=== PATIENT | female | born 1945 | race Caucasian/White ===

== ENCOUNTER 2018-03-15 10:25 | Observation (INO) ==
[2018-03-15] MEDS ORDERED: Metoprolol Tartrate 25 MG Tablet PO SCH ×2 (10:45)
[2018-03-15] MEDS ORDERED: Chlorhexidine Gluconate 2% 1 Pack (2 Cloths) TOPICAL SCH ×2 (10:45)
[2018-03-15] MEDS ORDERED: Sodium Chlor 0.9% Inj 500 ML IV.SIG SCH ×2 (11:00)
[2018-03-15] MEDS ORDERED: Lidocaine PF 1% Inj 5 ML Syringe INFILTRATN ONE (12:00)
[2018-03-15] MEDS ORDERED: Succinylcholine Inj 100 MG/5 ML Syringe IV.PUSH ONE (12:00)
[2018-03-15] MEDS ORDERED: Sincalide Inj 5 MCG Vial ONE (14:53)
[2018-03-15] MEDS ORDERED: Sincalide Inj 5 MCG Vial IV.PUSH ONE (15:01)
[2018-03-15] MEDS ORDERED: Labetalol HCl Inj 100 MG/20 ML Vial ONE (15:34)
--- NOTE | 2018-03-15 16:10 | P.PCN ---
Date of procedure: 03/15/18 Pre-op diagnosis: Worsening liver function tests abnormal imaging of the biliary tree Procedure: PROCEDURE PERFORMED ERCP with needle knife sphincterotomy INDICATION FOR PROCEDURE Elevated liver function tests including bilirubin with abnormal findings on imaging of the biliary tree PROCEDURE: The procedure, risks and benefits were discussed with Patient/POA and informed consent was obtained. Anesthesia sedated Patient with Diprivan. Patient was placed in the left lateral decubitus position. ERCP: Patient was placed in a prone position. The Pentax videoscope was introduced through the oropharynx and advanced to the second portion of the duodenum where the ampula was identified. FINDINGS: The ampulla appeared to be unremarkable I was unable to obtain cannulation of either the bile duct or the pancreatic duct and so a needle knife sphincterotomy was performed after which I was able to advance the wire into the pancreatic duct this was not injected but after multiple attempts I was unable to find the opening for the bile duct Kinevac was used to see if we can identify the biliary orifice without any response and so the procedure was then terminated ESTIMATED BLOOD LOSS: None SPECIMENS REMOVED: None COMPLICATIONS: None IMPRESSION: Biliary obstruction etiology unclear PLAN: Admit for observation IR to proceed with PTC Monitor labs Follow-up with GI post discharge Obtain tumor markers Anesthesia: JEDA Surgeon: Grey Pringle Condition: stable Disposition: observation
[2018-03-15] MEDS ORDERED: fentaNYL Citrate Inj 100 MCG/2 ML Ampul ONE (16:53)
[2018-03-15 16:57] LABS: Alanine Aminotransferase 357 U/L (10-53); Albumin 3.6 g/dL (3.4-5.0); Anion Gap 9 meq/L (5-15); Aspartate Aminotransferase 233 U/L (15-37); Blood Urea Nitrogen 19 mg/dL (7-18); Calcium 8.9 mg/dL (8.5-10.1); Carbon Dioxide 23.3 meq/L (21.0-32.0); Chloride 101 meq/L (98-107); Glomerular Filtration Rate 75 mL/min (>89); Glucose,Random 93 mg/dL (74-106); Potassium 3.6 meq/L (3.5-5.1); Sodium 133 meq/L (136-145)
[2018-03-15 17:00] LABS: Alkaline Phosphatase 705 U/L (45-117); Total Protein 7.1 g/dL (6.4-8.2)
--- NOTE | 2018-03-15 20:00 | ECG ---
Date Performed: 03/15/2018 Time Performed: 10:57:42 PTAGE: 72 years EKG: Sinus rhythm RIGHT BUNDLE BRANCH BLOCK ABNORMAL ECG PREVIOUS TRACING : 03/26/2016 07.48 Since the previous tracing, no significant change noted DOCTOR: Carlton Sosa Interpretating Date/Time 03/15/2018 19:57:22
[2018-03-15 22:10] LABS: Hematocrit 32.1 % (35.0-46.0); Hemoglobin 10.7 gm/dL (11.6-15.3); Mean Corpuscular HGB Conc 33.5 % (32.0-36.0); Mean Corpuscular Hemoglobin 33.3 pg (27.0-34.0); Mean Corpuscular Volume 99.6 fL (80.0-100.0); Platelet Count 253 th/mm3 (150-450); Red Blood Count 3.22 mil/mm3 (4.00-5.30); White Blood Count 7.9 th/mm3 (4.0-11.0)
[2018-03-15 22:16] LABS: INR 0.9 Ratio; Prothrombin Time 9.4 sec (9.8-11.6)
[2018-03-15] MEDS: ALPRAZolam 0.5 MG Tablet PO SCH (23:55)
[2018-03-15] MEDS: Metoprolol Tartrate 25 MG Tablet PO SCH (23:55)
[2018-03-15] MEDS: Fluorometholone 0.1% Opth Drops 5 ML Bottle EACH EYE SCH (23:57)
[2018-03-16] MEDS ORDERED: Morphine Inj 4 MG/ML Vial IV.PUSH ONE (00:30)
[2018-03-16] MEDS: Fluorometholone 0.1% Opth Drops 5 ML Bottle EACH EYE SCH (06:30)
[2018-03-16] MEDS: ALPRAZolam 0.5 MG Tablet PO SCH (08:07)
[2018-03-16] MEDS: Metoprolol Tartrate 25 MG Tablet PO SCH (08:08)
[2018-03-16] MEDS ORDERED: Cilostazol 50 MG Tablet PO SCH (09:00)
[2018-03-16] MEDS ORDERED: Ezetimibe 10 MG Tablet PO SCH (09:00)
[2018-03-16] MEDS ORDERED: Lisinopril 10 MG Tablet PO SCH (09:00)
[2018-03-16 09:27] VITALS: BP 139/63; PULSE 57; RESP 18; TEMP 97.1; O2SAT 97
--- NOTE | 2018-03-16 10:09 | P.CONGI ---
History of Present Illness Consult date: 03/16/18 Consult reason: Elevated LFTs abnormal imaging of the biliary tree Chief complaint: Jaundice History of Present Illness: This is a 72-year-old female who came in from outpatient setting for ERCP on patient was admitted and managed per Dr. Pringle due to worsening liver function test and abnormal imaging of the biliary tree, etiology unclear. Findings include the ampulla appeared to be unremarkable. Unable to cannulate the bile duct or the pancreatic duct so a needle knife sphincterotomy was performed. Multiple attempts were made but unable to find the opening for the bile duct so procedure was terminated without any complications. Plan was to consult IR for PTC and drainage on 03/16/2018, but patient has been on Plendil and Plavix for previous stent in her leg. Currently those meds are on hold and patient is being scheduled for outpatient IR procedure either 2017 or 03/21/2018. Currently patient denies any nausea or vomiting no abdominal pain no diarrhea no constipation. Patient notes EGD colonoscopy approximately 1-1/2 years ago with a history of polyps. Currently patient is tolerating liquids and food and will be discharged today to return for outpatient IR procedure listed above. Labs show current hemoglobin 10.7, PT/ INR 0.9. <Helga Mckeon - Last Filed: 03/16/18 10:17> Review of Systems All other systems reviewed negative except as stated in HPI <Helga Mckeon - Last Filed: 03/16/18 10:17> PMFSH - History History Provided By: Patient - Medical History Medical History: Medical History (Last Updated 03/15/18 @ 11:23 by Daisy Mcpherson) Arthritis Back pain COPD (chronic obstructive pulmonary disease) Dysrhythmia, cardiac Heartburn PVD (peripheral vascular disease) Visual impairment - Tobacco History Second Hand Smoke Exposure: No Tobacco Use In Past 30 Days: Yes Smoking Status: Current every day smoker Tobacco Type: Cigarettes - Alcohol History How Often Do You Have a Drink Containing Alcohol: 4 or more times a week - Substance Use History Substance History: No History of Abuse, Past History - Substance Use Type Marijuana Status: Active Route Used: Inhalation Frequency: not in the past few months Reason for Use: Calm Down - Travel History Recent Travel in the [place] Within the Last 8 Weeks: No Recent Travel Out of the Country Within the Last 8 Weeks: No <Helga Mckeon Jossie - Last Filed: 03/16/18 10:17> - Medical History Medical History: Medical History (Last Updated 03/15/18 @ 11:23 by Daisy Mcpherson) Arthritis Back pain COPD (chronic obstructive pulmonary disease) Dysrhythmia, cardiac Heartburn PVD (peripheral vascular disease) Visual impairment <Grey Pringle - Last Filed: 03/16/18 14:43> Medications and Allergies Active Medications: Active Medications Alprazolam (Xanax) 0.5 mg PO BID [facility] Last Admin: 03/16/18 08:07 Dose: 0.5 mg Chlorhexidine Gluconate (Chlorhexidine 2% Cloth) 3 pack [employer] [facility] Stop: 03/18/18 10:44 Last Admin: 03/15/18 13:38 Dose: Not Given Cilostazol (Pletal) 100 mg PO BID [facility] Last Admin: 03/16/18 08:04 Dose: Not Given Clopidogrel Bisulfate (Plavix) 75 mg PO DAILY [facility] Last Admin: 03/16/18 08:04 Dose: Not Given Ezetimibe (Zetia) 10 mg PO DAILY [facility] Last Admin: 03/16/18 08:07 Dose: 10 mg Fluorometholone (Fml Opth Drops) 2 drop EACH EYE Q6HR [facility] Last Admin: 03/16/18 06:30 Dose: 2 drop Lactated Ringer's (Lr 1000 Ml Inj) 1,000 mls @ 30 mls/hr IV.SIG .Q24H [facility] Stop: 03/18/18 10:42 Last Admin: 03/15/18 11:00 Dose: 30 mls/hr Sodium Chloride (Ns Inj) 500 mls @ 30 mls/hr IV.SIG .Q10H [facility] Stop: 03/18/18 10:42 Lisinopril (Prinivil) 10 mg PO DAILY [facility] Last Admin: 03/16/18 08:07 Dose: 10 mg Metoprolol Tartrate (Lopressor) 25 mg PO [employer] [facility] Stop: 03/18/18 10:42 Last Admin: 03/15/18 13:39 Dose: Not Given Metoprolol Tartrate (Lopressor) 25 mg PO BID [facility] Last Admin: 03/16/18 08:08 Dose: 25 mg Miscellaneous (Pill Splitter) 1 each OTHER UNSCH PRN PRN Reason: SEE LABEL COMMENTS Miscellaneous Information (Misc Nursing Information) 1 each OTHER UNSCH PRN PRN Reason: SEE LABEL COMMENTS Stop: 03/16/18 15:30 Povidone Iodine (Betadine 5% Antisepsis Kit) 1 applicatio EACH [employer] [facility] Stop: 03/18/18 10:42 Last Admin: 03/15/18 13:38 Dose: Not Given Pramipexole Dihydrochloride (Mirapex) 0.125 mg PO [facility] Last Admin: 03/15/18 23:56 Dose: Not Given <Helga Mckeon M - Last Filed: 03/16/18 10:17> <Grey Pringle - Last Filed: 03/16/18 14:43> Allergies Allergy/AdvReac Type Severity Reaction Status Date / Time zolpidem Allergy Intermediate Hallucinati Verified 03/15/18 11:23 ons Home Medications Medication Instructions Recorded Confirmed Type alprazolam 0.5 mg PO BID 03/15/18 03/15/18 History ezetimibe 10 mg PO DAILY 03/15/18 03/15/18 History fluorometholone acetate 2 drp OPHTHALMIC (EYE) Q6H 03/15/18 03/15/18 History gabapentin 300 mg PO DAILY 03/15/18 03/15/18 History lisinopril 10 mg PO DAILY 03/15/18 03/15/18 History metoprolol tartrate 25 mg PO BID 03/15/18 03/15/18 History pramipexole 0.125 mg PO QPM 03/15/18 03/15/18 History Exam Vital signs: Vital Signs 03/15/18 11:37 03/15/18 15:28 03/15/18 15:30 Temperature 97.3 F L 97.8 F Pulse Rate 60 68 66 Respiratory Rate 20 18 18 Blood Pressure 138/64 199/91 H 210/89 H Pulse Oximetry 97 100 100 03/15/18 15:45 03/15/18 16:00 03/15/18 16:15 Temperature Pulse Rate 63 62 66 Respiratory Rate 18 20 20 Blood Pressure 179/75 H 178/75 H 159/69 H Pulse Oximetry 100 100 97 03/15/18 16:30 03/15/18 17:00 03/15/18 17:45 Temperature 97.8 F Pulse Rate 67 64 66 Respiratory Rate 19 19 20 Blood Pressure 157/69 H 153/69 H 156/69 H Pulse Oximetry 95 96 97 03/15/18 20:00 03/16/18 00:00 03/16/18 08:00 Temperature 97.6 F 97.9 F 97.1 F L Pulse Rate 62 63 57 L Respiratory Rate 16 16 18 Blood Pressure 145/64 H 140/60 139/63 Pulse Oximetry 95 94 L 97 Intake & Output 03/15/18 03/16/18 03/16/18 18:59 06:59 18:59 Intake Total 900 / 900 Balance 900 / 900 Weight 61 kg 66.6 kg Intake: Anesthesia Amount 900 / 900 Other: # Voids 1 6 Weight On Admission 61 kg - Constitutional no acute distress (Except for some mild anxiety) - Routine HEENT Exam ENT: Present: mucous membranes moist (Mild sore throat) - Routine Neck Exam Present: supple - Routine Respiratory Exam Present: accessory muscle use (Even, unlabored) - Routine Cardiovascular Exam Present: S1, S2 - Routine Abdominal Exam Present: soft, normoactive bowel sounds (No abdominal pain) - Routine Neurological Exam Present: alert (Mild increased anxiety) <Helga Mckeon - Last Filed: 03/16/18 10:17> Vital signs: Vital Signs 03/15/18 15:28 03/15/18 15:30 03/15/18 15:45 Temperature 97.8 F Pulse Rate 68 66 63 Respiratory Rate 18 18 18 Blood Pressure 199/91 H 210/89 H 179/75 H Pulse Oximetry 100 100 100 03/15/18 16:00 03/15/18 16:15 03/15/18 16:30 Temperature Pulse Rate 62 66 67 Respiratory Rate 20 20 19 Blood Pressure 178/75 H 159/69 H 157/69 H Pulse Oximetry 100 97 95 03/15/18 17:00 03/15/18 17:45 03/15/18 20:00 Temperature 97.8 F 97.6 F Pulse Rate 64 66 62 Respiratory Rate 19 20 16 Blood Pressure 153/69 H 156/69 H 145/64 H Pulse Oximetry 96 97 95 03/16/18 00:00 03/16/18 08:00 Temperature 97.9 F 97.1 F L Pulse Rate 63 57 L Respiratory Rate 16 18 Blood Pressure 140/60 139/63 Pulse Oximetry 94 L 97 Intake & Output 03/15/18 03/16/18 03/16/18 18:59 06:59 18:59 Intake Total 900 / 900 Balance 900 / 900 Weight 61 kg 66.6 kg Intake: Anesthesia Amount 900 / 900 Other: # Voids 1 6 Weight On Admission 61 kg <Grey Pringle - Last Filed: 03/16/18 14:43> Results - Labs CBC & Chem 7: 03/15/18 21:55 03/15/18 16:00 Labs: Laboratory Results - last 24 hr 03/15/18 03/15/18 03/15/18 16:00 21:55 21:55 WBC 7.9 RBC 3.22 L Hgb 10.7 L Hct 32.1 L MCV 99.6 MCH 33.3 MCHC 33.5 RDW 15.0 Plt Count 253 MPV 9.0 PT 9.4 L INR 0.9 Sodium 133 L Potassium 3.6 Chloride 101 Carbon Dioxide 23.3 Anion Gap 9 BUN 19 H Creatinine 0.76 Estimated GFR 75 L Random Glucose 93 Calcium 8.9 Total Bilirubin 6.6 H AST 233 H ALT 357 H Alkaline Phosphatase 705 H Total Protein 7.1 Albumin 3.6 <Helga Mckeon M - Last Filed: 03/16/18 10:17> - Labs CBC & Chem 7: 03/15/18 21:55 03/15/18 16:00 Labs: Laboratory Results - last 24 hr 03/15/18 03/15/18 03/15/18 16:00 21:55 21:55 WBC 7.9 RBC 3.22 L Hgb 10.7 L Hct 32.1 L MCV 99.6 MCH 33.3 MCHC 33.5 RDW 15.0 Plt Count 253 MPV 9.0 PT 9.4 L INR 0.9 Sodium 133 L Potassium 3.6 Chloride 101 Carbon Dioxide 23.3 Anion Gap 9 BUN 19 H Creatinine 0.76 Estimated GFR 75 L Random Glucose 93 Calcium 8.9 Total Bilirubin 6.6 H AST 233 H ALT 357 H Alkaline Phosphatase 705 H Total Protein 7.1 Albumin 3.6 <Grey Pringle - Last Filed: 03/16/18 14:43> Assessment and Plan - Plan Elevated LFTs and abnormal imaging of the biliary tree. Plan is for labs CA 19 and alpha-fetoprotein ordered/ Order placed for consult to IR for PTC with drainage on Sunday 03/18 or Wednesday, . This will be scheduled through scheduling and [employer]. Patient will also need follow-up in the office with CBC and CMP. Patient appears to be a poor historian so these instructions were reviewed with her several times. Cell phone number was also around in the system so we have obtained new cell phone number and advised staff to change in the [facility] system as well as notifying the advanced GI office personnel. Follow-up in the office after procedure performed in approximately 2 weeks with CBC and CMP labs Patient was seen per myself and Dr. Pringle, note was written on his behalf <Helga Mckeon - Last Filed: 03/16/18 10:17> - Attending Attestation Patient seen and examined Agree with above Patient to have an outpatient PTC Follow-up in clinic <Grey Pringle - Last Filed: 03/16/18 14:43>
== END 2018-03-16 11:22 | disposition home or self-care (01) ==
LOC: HSDI 10:25 → HSDC 10:25 → N07 10:25
PROVIDERS: ADMIT Internal Medicine Gastroenterology; ATTEND Internal Medicine Gastroenterology

== ENCOUNTER 2018-03-20 01:39 | Inpatient (IN) ==
[2018-03-20] MEDS ORDERED: Morphine Inj 4 MG/ML Vial IV.PUSH ONE ×3 (02:02→07:17)
[2018-03-20] MEDS ORDERED: Sod Chloride 0.9% Inj 1,000 ML IV.SIG SCH (02:15)
--- NOTE | 2018-03-20 02:35 | ED ---
HPI General Chief complaint: Respiratory Symptoms Stated complaint: Medical Time Seen by Provider: 03/20/18 01:47 Source: patient Mode of arrival: ambulatory Limitations: no limitations History of Present Illness HPI narrative: This 72-year-old woman who presents to the emergency department complaining of right flank pain and shortness of breath. Patient was recently admitted to the hospital with GI for abnormal liver enzymes of unclear etiology. They try to do an ERCP but were unable to cannulate the bile duct. She was sent for an biliary drainage tube yesterday. She states that she got home and since then has had worsening pain and trouble breathing. She is a history of COPD. She took some hydrocodone that she has at home for her chronic back and neck pain, but it did not help, and her breathing felt worse, and so she came to the emergency department. Related Data Home Medications Medication Instructions Recorded Confirmed alprazolam 0.5 mg PO BID 03/15/18 03/18/18 fluorometholone acetate 1 drp OPHTHALMIC (EYE) TID 03/15/18 03/18/18 albuterol sulfate [Ventolin HFA] 2 puff INHALATION Q6H PRN 03/18/18 03/18/18 alendronate 70 mg PO QWEEK 03/18/18 03/18/18 aspirin 81 mg PO DAILY 03/18/18 03/18/18 atorvastatin 40 mg PO DAILY 03/18/18 03/18/18 azelastine 1 drp OPHTHALMIC (EYE) BID 03/18/18 03/18/18 bupropion HCl 150 mg PO BID 03/18/18 03/18/18 calcium carbonate-vitamin D3 1 tab PO BID 03/18/18 03/18/18 [Caltrate with Vitamin D3] cholecalciferol (vitamin D3) 5,000 unit PO DAILY 03/18/18 03/18/18 [Vitamin D3] cilostazol 100 mg PO BID 03/18/18 03/18/18 clopidogrel [Plavix] 75 mg PO DAILY 03/18/18 03/18/18 fluticasone [Flovent HFA] 2 puff INHALATION BID 03/18/18 03/18/18 hydrocodone-acetaminophen 1 tab PO Q6H PRN 03/18/18 03/18/18 lisinopril 20 mg PO DAILY 03/18/18 03/18/18 meloxicam 7.5 mg PO BID 03/18/18 03/18/18 [id number] 3 drp OTIC (EAR) QID 03/18/18 03/18/18 pramipexole [Mirapex] 1 mg PO HS 03/18/18 03/18/18 tretinoin 1 applic TOPICAL QPM 03/18/18 03/18/18 Previous Rx's Medication Instructions Recorded ezetimibe [Zetia] 10 mg PO DAILY tab 03/16/18 Allergies Allergy/AdvReac Type Severity Reaction Status Date / Time zolpidem Allergy Intermediate Hallucinati Verified 03/15/18 11:23 ons Review of Systems ROS: all other systems reviewed are negative [facility] Medical History Medical History PVD (peripheral vascular disease) (Acute) COPD (chronic obstructive pulmonary disease) (Acute) Back pain (Acute) Arthritis (Acute) Visual impairment (Acute) Heartburn (Acute) Dysrhythmia, cardiac (Acute) Admission for biliary drainage tube placement (Acute) Surgical History Surgical History History of ERCP (Acute) Social History Social History Substance History: No History of Abuse Second Hand Smoke Exposure: No Smoking Status: Former smoker Tobacco Type: Cigarettes How Often Do You Have a Drink Containing Alcohol: 2 to 4 times a month Recent Out of Country Travel within the Last 8 Weeks: No Immunization History Tetanus Immunization: Unsure Hx Influenza Vaccine This Season: Yes Exam Narrative Exam Narrative: GENERAL: 72-year-old woman, no acute distress. SKIN: Focused skin assessment warm/dry. HEAD: Atraumatic. Normocephalic. EYES: Pupils equal and round. No scleral icterus. No injection or drainage. ENT: No nasal bleeding or discharge. Mucous membranes pink and moist. NECK: Trachea midline. No JVD. CARDIOVASCULAR: Regular rate and rhythm. No murmur appreciated. RESPIRATORY: No accessory muscle use. Clear to auscultation. Breath sounds equal bilaterally. GASTROINTESTINAL: Abdomen is flat and soft. In the right flank she has a biliary drainage tube. The sites clean, no erythema or redness. No leakage. MUSCULOSKELETAL: No obvious deformities. No edema. NEUROLOGICAL: Awake and alert. No obvious cranial nerve deficits. Motor grossly within normal limits. Normal speech. PSYCHIATRIC: Appropriate mood and affect; insight and judgment normal. Course Initial Documented Vital Signs Temperature 97.6 F 03/20/18 01:42 Pulse Rate 64 03/20/18 01:42 Respiratory Rate 20 03/20/18 01:42 Blood Pressure 127/87 03/20/18 01:42 Pulse Oximetry 98 03/20/18 01:42 Last Documented Vital Signs Temperature 97.6 F 03/20/18 01:42 Pulse Rate 64 03/20/18 01:42 Respiratory Rate 20 03/20/18 01:42 Blood Pressure 127/87 03/20/18 01:42 Pulse Oximetry 98 03/20/18 01:42 Medical Decision Making MDM Narrative Medical decision making narrative: This 72-year-old woman, right flank pain. I think this is just periprocedural pain. I do not see evidence of complication. Patient has a lot of concerns that she feels like she was not really repaired for the fact that she would have a bag or drainage tube, and what to expect as far as pain. I think that is playing a lot into her concerns. She overall looks well. I do not hear a lot of wheezing or other evidence of COPD flare pneumonia causes shortness of breath. I think the pain is pleuritic giving her the dyspneic sensation. Will check chest x-ray, will check CT of the abdomen and pelvis. FINAL: CT of the abdomen and pelvis shows pneumoperitoneum. I spoke with Dr. Osullivan's, with Dr. Pringle. Suspicion is this is likely sequelae from biopsy of the biliary tree. Recommend admission for monitoring, ensure no progression to peritonitis or sepsis. Medical Screen Exam Complete: Yes Emergency Medical Condition: Yes Lab Data Result diagrams: 03/20/18 02:40 03/20/18 02:40 Lab Results 03/20/18 03/20/18 Range/Units 02:40 02:40 CBC w Diff Manual diff required WBC 9.5 (4.0-11.0) th/mm3 RBC 3.35 L (4.00-5.30) mil/mm3 Hgb 11.4 L (11.6-15.3) gm/dL Hct 33.5 L (35.0-46.0) % MCV 99.8 (80.0-100.0) fL MCH 34.0 (27.0-34.0) pg MCHC 34.1 (32.0-36.0) % RDW 15.5 (11.6-17.2) % Plt Count 300 (150-450) th/mm3 MPV 9.5 (7.0-11.0) fL WBC Differential Manual diff final Seg Neuts % (Manual) 72 H (16-70) % Band Neuts % (Manual) 2 (0-6) % Lymphocytes % (Manual) 19 (9-44) % Monocytes % (Manual) 7 (0-8) % Abs Neuts (Manual) 7.0 (1.8-7.7) th/mm3 Differential Comment . Platelet Estimate Normal (Normal) Platelet Morphology Normal (Normal) RBC Morphology Normal (Normal) Sodium 133 L (136-145) meq/L Potassium 4.1 (3.5-5.1) meq/L Chloride 99 (98-107) meq/L Carbon Dioxide 22.1 (21.0-32.0) meq/L Anion Gap 12 (5-15) meq/L BUN 16 (7-18) mg/dL Creatinine 0.87 (0.50-1.00) mg/dL Estimated GFR 64 L (>89) mL/min Random Glucose 118 H (74-106) mg/dL Calcium 9.3 (8.5-10.1) mg/dL Total Bilirubin 3.1 H (0.2-1.0) mg/dL AST 83 H (15-37) U/L ALT 207 H (10-53) U/L Alkaline Phosphatase 579 H (45-117) U/L Total Protein 7.7 D (6.4-8.2) g/dL Albumin 3.8 (3.4-5.0) g/dL Imaging Data Radiologist's impression: Abdomen/Pelvis CT 03/20/18 02:02 CONCLUSION: 1. Interval development of pneumoperitoneum in the right upper abdominal quadrant. Air tracks into the enrique hepatis and along the medial aspect of the right hepatic lobe. 2. Hepatic biliary drainage catheter enters the right ducts with the cope loop appropriately positioned in the second portion of the duodenum. Persistent dilation of the left hepatic ducts. 3. Bibasilar atelectatic changes, right greater than left. Chest X-Ray 03/20/18 02:03 CONCLUSION: No acute cardiopulmonary process. ECG Data Attestation: I personally reviewed and interpreted this ECG as follows: Interpretation: Normal sinus rhythm at a rate of 63, right bundle branch block, no acute ischemia. Discharge Plan Discharge Disposition Patient Disposition: 01 Discharge Home Discharge Condition Condition: Stable Physicians Team ED Provider: Lavon Dubose Primary Care Provider: Christiane Cespedes Rxs /Orders / Referrals /Forms Prescriptions: No Action alprazolam 0.5 mg Tablet 0.5 mg PO BID RF: 0 fluorometholone acetate 0.1 % Drops,Suspension 1 drp OPHTHALMIC (EYE) TID RF: 0 ezetimibe [Zetia] 10 mg Tablet 10 mg PO DAILY RF: 0 lisinopril 10 mg tablet 20 mg PO DAILY RF: 0 pramipexole [Mirapex] 0.25 mg tablet 1 mg PO HS RF: 0 atorvastatin 40 mg Tablet 40 mg PO DAILY RF: 0 cilostazol 100 mg Tablet 100 mg PO BID RF: 0 bupropion HCl 150 mg Tablet Extended Release 12 Hr 150 mg PO BID RF: 0 azelastine 0.05 % Drops 1 drp OPHTHALMIC (EYE) BID RF: 0 alendronate 70 mg Tablet 70 mg PO QWEEK RF: 0 clopidogrel [Plavix] 75 mg Tablet 75 mg PO DAILY RF: 0 meloxicam 7.5 mg Tablet 7.5 mg PO BID RF: 0 hydrocodone-acetaminophen 7.5-325 mg Tablet 1 tab PO Q6H PRN (Reason: Pain) RF: 0 aspirin 81 mg Tablet,Chewable 81 mg PO DAILY RF: 0 albuterol sulfate [Ventolin HFA] 90 mcg/actuation Hfa Aerosol Inhaler 2 puff INHALATION Q6H PRN (Reason: Shortness Of Breath Or Wheezing) RF: 0 fluticasone [Flovent HFA] 110 mcg/actuation Hfa Aerosol Inhaler 2 puff INHALATION BID RF: 0 [id number] 3.5-10,000-1 mg/mL-unit/mL-% Drops,Suspension 3 drp OTIC (EAR) QID RF: 0 tretinoin 0.05 % Gel 1 applic TOPICAL QPM RF: 0 cholecalciferol (vitamin D3) [Vitamin D3] 5,000 unit Tablet 5,000 unit PO DAILY RF: 0 calcium carbonate-vitamin D3 [Caltrate with Vitamin D3] 600 mg(1,500mg) -800 unit Tablet 1 tab PO BID RF: 0 Status ED Status: With Doctor
--- NOTE | 2018-03-20 02:50 | XR ---
EXAM DATE: 03/20/2018 2:33 AM EDT AGE/SEX: 72 years / Female INDICATIONS: . Abdominal pain post percutaneous transhepatic cholangiogram and biliary drain placeme nt two days ago. CLINICAL DATA: This is the patient's initial encounter. Patient reports that signs and symptoms have been present for 2 days and indicates a pain score of 0/10. MEDICAL/SURGICAL HISTORY: Chronic obstructive pulmonary disease. Hypertension. Hyperlipidemia. IBS. Breast augmentation. PTHC with biopsy and drainage catheter placement. COMPARISON: No prior exams available for comparison. FINDINGS: PA and lateral views of the chest demonstrate the lungs to be symmetrically aerated without evidence of mass, infiltrate or effusion. The cardiomediastinal contours are unremarkable. Osseous structures are intact. Bilateral breast augmentation. Biliary drainage catheter in the right upper abdominal smiley barbara CONCLUSION: No acute cardiopulmonary process. Electronically signed by: Max Cespedes MD 03/20/2018 2:49 AM EDT
[2018-03-20 03:31] LABS: Hematocrit 33.5 % (35.0-46.0); Hemoglobin 11.4 gm/dL (11.6-15.3); Mean Corpuscular HGB Conc 34.1 % (32.0-36.0); Mean Corpuscular Volume 99.8 fL (80.0-100.0); Platelet Count 300 th/mm3 (150-450); Red Blood Count 3.35 mil/mm3 (4.00-5.30); Red Cell Distribution Width 15.5 % (11.6-17.2); White Blood Count 9.5 th/mm3 (4.0-11.0)
[2018-03-20 03:32] LABS: Mean Platelet Volume 9.5 fL (7.0-11.0)
[2018-03-20 03:44] LABS: Anion Gap 12 meq/L (5-15); Blood Urea Nitrogen 16 mg/dL (7-18); Carbon Dioxide 22.1 meq/L (21.0-32.0); Chloride 99 meq/L (98-107); Glomerular Filtration Rate 64 mL/min (>89); Glucose,Random 118 mg/dL (74-106); Potassium 4.1 meq/L (3.5-5.1); Sodium 133 meq/L (136-145)
[2018-03-20 03:45] LABS: Alanine Aminotransferase 207 U/L (10-53); Albumin 3.8 g/dL (3.4-5.0); Alkaline Phosphatase 579 U/L (45-117); Aspartate Aminotransferase 83 U/L (15-37); Calcium 9.3 mg/dL (8.5-10.1); Total Protein 7.7 g/dL (6.4-8.2)
[2018-03-20 04:41] LABS: Lymphocytes 19 % (9-44); Monocytes 7 % (0-8); Platelet Estimate Normal (Normal); Platelet Morphology Normal (Normal); RBC Morphology Normal (Normal)
--- NOTE | 2018-03-20 04:46 | CT ---
EXAM DATE: 03/20/2018 4:04 AM EDT AGE/SEX: 72 years / Female INDICATIONS: Right flank pain. Biliary drainage tube placement yesterday. CLINICAL DATA: This is the patient's initial encounter. Patient reports that signs and symptoms have been present for 2 days and indicates a pain score of 7/10. MEDICAL/SURGICAL HISTORY: Chronic obstructive pulmonary disease. Peripheral vascular disease. Cardiovascular disease. . Biliary drainage tube. ORAL CONTRAST: No oral contrast ingested. RADIATION DOSE: 6.97 CTDI (mGy) COMPARISON: [facility] [place], CHEST 2V PA&LAT, 03/20/2018. . TECHNIQUE: Multiple contiguous axial images were obtained through the abdomen and pelvis following b olus infusion of 70 ml Omnipaque 350 (iohexol) nonionic water-soluble contrast as a single exam dos e. No oral contrast ingested. Using automated exposure control and adjustment of the mA and/or kV ac cording to patient size, radiation dose was kept as low as reasonably achievable to obtain optimal di agnostic quality images. DICOM format image data is available electronically for review and comparis on. FINDINGS: Lower Lungs: Bibasilar atelectatic changes, right greater than left. Bilateral breast augmentation. Liver: Biliary drainage catheter enters from the right. There is persistent dilation of the left hepa tic ducts. No calcified gallstones. Gallbladder is decompressed. Spleen: Homogeneous density without enlargement. Pancreas: Unremarkable without mass or calcification. Kidneys: Normal in size and shape. No evidence of mass or hydronephrosis. Adrenal Glands: Unremarkable. Aorta: The aorta and proximal iliac vessels are grossly unremarkable without aneurysmal dilation. Bowel/Mesentery: The bowel loops are grossly unremarkable. The cecum and sigmoid colon have a normal configuration. There is some free air identified in the right upper abdominal quadrant tracking into the region of the enrique hepatis as well as the medial border of the right hepatic lobe Abdominal Wall: Intact. Retroperitoneum: No evidence of adenopathy in the retrocrural, para-aortic, or deep pelvic regions. Bladder: Contours are smooth. Reproductive Organs: No abnormal masses or calcifications seen. Inguinal: The inguinal region is unremarkable without evidence of adenopathy. Bony Structures: Unremarkable. Post Contrast: No abnormal areas of enhancement seen. CONCLUSION: 1. Interval development of pneumoperitoneum in the right upper abdominal quadrant. Air tracks into t he enrique hepatis and along the medial aspect of the right hepatic lobe. 2. Hepatic biliary drainage catheter enters the right ducts with the cope loop appropriately positio keith in the second portion of the duodenum. Persistent dilation of the left hepatic ducts. 3. Bibasilar atelectatic changes, right greater than left. Electronically signed by: Max Cespedes MD 03/20/2018 4:44 AM EDT
[2018-03-20] MEDS ORDERED: Acetaminophen 325 MG Tablet PO PRN (07:45)
[2018-03-20] MEDS ORDERED: Sod Chloride 0.9% Inj 1,000 ML IV.CONT SCH (08:00)
[2018-03-20] MEDS ORDERED: Lisinopril 10 MG Tablet PO SCH ×2 (09:00)
[2018-03-20] MEDS ORDERED: Ezetimibe 10 MG Tablet PO SCH (09:00)
[2018-03-20] MEDS ORDERED: ALPRAZolam 0.5 MG Tablet PO SCH (09:00)
[2018-03-20] MEDS ORDERED: buPROPion 150 MG 12 HR Tablet PO SCH (09:00)
[2018-03-20] MEDS ORDERED: AZELASTINE EACH EYE PRN (09:00)
[2018-03-20] MEDS ORDERED: Metoprolol Tartrate 25 MG Tablet PO SCH (09:00)
[2018-03-20] MEDS ORDERED: Senna/Docusate Sodium 8.6/50 MG Tablet PO SCH (09:00)
--- NOTE | 2018-03-20 09:05 | P.HPIM ---
History of Present Illness Primary Care Physician: Christiane Cespedes MD History of Present Illness: Ms. Herrmann is a pleasant 72 y/o WF who was recently found to have elevated LFTs. She began outpt workup for this in 11/2017. She had an outpt MRCP on which noted a dilatation of the left hepatic ducts with a tight stricture at the junction of the CBD. Her tumor markers were negative. She had a weakly positive AMA. Her outpt LFTs continued to rise. Pt was admitted by GI for an attempted ERCP on 03/15/[address] Pringle but he was unable to obtain cannulate either the bile duct or the pancreatic duct and so a sphincterotomy was performed after which he was able to advance the wire into the pancreatic duct but was unable to find the opening for the bile duct. 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 Biopsies were taken. Left lobe ducts were not clearly visualized and are presumed obstructed at the hilum. Pathology from the procedure is pending. Pt reports that the day following the procedure she started having increased abdominal pain and bloating sensation. She felt very nauseated but did not have any vomiting. No reported fevers or chills. She returned to the ED at [facility] on 03/20/18 secondary to the increased pain and nausea. Her labs in the ED noted an improvement in her LFTs compared to labs on 03/15/18 when she was previously admitted. Her TBili has decreased from 6.6 to 3.1, AST from 233 to 83, ALT from 357 to 207, and AlkPhos from 706 to 579. She reports that she has had consistent output from the biliary drain. She drained about 300mL last night and currently has about 250mL in the bag this morning. She had a CT Abd/pelvis in the ED which revealed interval development of pneumoperitoneum in the right upper abdominal quadrant with air tracking into the enrique hepatis and along the medial aspect of the right hepatic lobe, hepatic biliary drainage catheter enters the right ducts with the cope loop appropriately positioned in the second portion of the duodenum, persistent dilation of the left hepatic ducts, and bibasilar atelectatic changes , right greater than left. Her PCP had recently decided to hold her Pletal due to a possible side effect of itching. She recently had a Holter monitor performed on 02/24/18 and it noted a few short bursts of SVT so Cardiology recommending decreasing her Lisinopril to 10mg po daily and added on Metoprolol 25mg po BID. Past Medical Hx: SVT Asthma COPD DDD Depression with anxiety HTN Hyperlipidemia Hyperglycemia Hx of lung nodules Non-thrombocytopenic purpura Osteopenia Peripheral arterial disease s/p left SFA stenting (2015), with in-stent restenosis and moderate disease in the RLE Claudication Hx of tobacco use RLS Hx of colon polyps 2D echo (02/23/16): - Estimated EF 55-60% - Grade 1 diastolic dysfunction Holter Monitor (02/24/18) --> Few short bursts of SVT Past Surgical Hx: Attempted ERCP on 03/15/[address] Pringle but he was unable to obtain cannulate either the bile duct or the pancreatic duct and so a sphincterotomy was performed after which he was able to advance the wire into the pancreatic duct but was unable to find the opening for the bile duct. 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 - Diagnosis (1) Pneumoperitoneum (2) Mass of bile duct (3) Elevated LFTs (4) HTN (hypertension) (5) Paroxysmal SVT (supraventricular tachycardia) (6) PVD (peripheral vascular disease) (7) COPD (chronic obstructive pulmonary disease) Inpatient Certification: I certify that the inpatient services were ordered in accordance with Medicare regulations governing the order. This includes certification that hospital inpatient services are reasonable and necessary and in the case of services not specified as inpatient-only under 42 CFR 419.22(n), that they are appropriately provided as inpatient services in accordance to with the 2-midnight benchmark under 43 CFR 412.3(e) Estimated Total Length of Stay (Days): 3 Plans for Post Hospital Care: Not yet determined Review of Systems Constitutional: Denies chills, Denies fever(s), Denies night sweats Eyes: Denies loss of vision Ears, Nose, Mouth, and Throat: Denies difficulty swallowing, Denies dizziness Cardiovascular: Denies chest pain, Denies lightheadedness, Denies rapid, pounding, or irregular heartbeat, Denies shortness of breath Respiratory: Denies cough, Denies shortness of breath Gastrointestinal: Reports abdominal pain, Reports bloating, Reports nausea, Denies vomiting Genitourinary: Denies urinary incontinence, Denies urinary urgency Skin/Breast: Denies rash Neurologic: Denies localized weakness, Denies tingling/numbness/burning sensations PMFSH - History History Provided By: Patient - Medical History Medical History: Medical History (Last Reviewed 03/20/18 @ 02:32 by Lavon Dubose MD) PVD (peripheral vascular disease) (Acute) COPD (chronic obstructive pulmonary disease) (Acute) Back pain (Acute) Arthritis (Acute) Visual impairment (Acute) Heartburn (Acute) Dysrhythmia, cardiac (Acute) Admission for biliary drainage tube placement - Surgical History Surgical History: Surgical History (Last Reviewed 03/20/18 @ 02:32 by Lavon Dubose MD) History of ERCP - Tobacco History Second Hand Smoke Exposure: No Tobacco Use In Past 30 Days: No Smoking Status: Former smoker Tobacco Type: Cigarettes - Alcohol History How Often Do You Have a Drink Containing Alcohol: 2 to 4 times a month - Substance Use History Substance History: No History of Abuse - Travel History Recent Travel Out of the Country Within the Last 8 Weeks: No - Immunization History Tetanus Immunization: Unsure Hx Influenza Vaccine This Season: Yes Medications and Allergies Active Medications: Active Medications Acetaminophen (Tylenol) 650 mg PO Q4H PRN PRN Reason: Temp > 100.4 Hydrocodone Bitart/Acetaminophen ([place] 7.5/325) 1 tab PO Q8H PRN PRN Reason: Pain 3-10 Al Hydroxide/Mg Hydroxide (Milk Of Magnesia Liq) 30 ml PO Q12H PRN PRN Reason: Mild Constipation Alprazolam (Xanax) 0.5 mg PO BID [facility] Aspirin (Aspirin Chew) 81 mg PO DAILY ALESSANDRO Atorvastatin Calcium (Lipitor) 40 mg PO HS ALESSANDRO Bupropion HCl (Wellbutrin Sr) 150 mg PO BID [facility] Cilostazol (Pletal) 100 mg PO BID [facility] Ezetimibe (Zetia) 10 mg PO DAILY [facility] Fluorometholone (Fml Opth Drops) 1 drop EACH EYE TID [facility] Fluticasone Propionate (Flovent Hfa 110 Mcg Inh) 2 puff INH BID [facility] Sodium Chloride (Ns Inj) 1,000 mls @ 84 mls/hr IV.CONT .[id number] [facility] Lisinopril (Prinivil) 10 mg PO DAILY [facility] Non-Formulary Medication (Azelastine [Azelastine]) 1 drp EACH EYE BID PRN PRN Reason: itchy eyes Ondansetron HCl (Zofran Odt) 4 mg PO Q4H PRN PRN Reason: nausea/vomiting Senna/Docusate Sodium (Kaylynn-Colace) 1 tab PO BID [facility] Allergies Allergy/AdvReac Type Severity Reaction Status Date / Time zolpidem Allergy Intermediate Hallucinati Verified 03/15/18 11:23 ons Home Medications Medication Instructions Recorded Confirmed Type alprazolam 0.5 mg PO BID 03/15/18 03/18/18 History fluorometholone acetate 1 drp OPHTHALMIC (EYE) TID 03/15/18 03/18/18 History albuterol sulfate [Ventolin HFA] 2 puff INHALATION Q6H PRN 03/18/18 03/18/18 History alendronate 70 mg PO QWEEK 03/18/18 03/18/18 History aspirin 81 mg PO DAILY 03/18/18 03/18/18 History atorvastatin 40 mg PO DAILY 03/18/18 03/18/18 History azelastine 1 drp OPHTHALMIC (EYE) BID 03/18/18 03/18/18 History bupropion HCl 150 mg PO BID 03/18/18 03/18/18 History calcium carbonate-vitamin D3 1 tab PO BID 03/18/18 03/18/18 History [Caltrate with Vitamin D3] cholecalciferol (vitamin D3) 5,000 unit PO DAILY 03/18/18 03/18/18 History [Vitamin D3] cilostazol 100 mg PO BID 03/18/18 03/18/18 History clopidogrel [Plavix] 75 mg PO DAILY 03/18/18 03/18/18 History fluticasone [Flovent HFA] 2 puff INHALATION BID 03/18/18 03/18/18 History hydrocodone-acetaminophen 1 tab PO Q6H PRN 03/18/18 03/18/18 History lisinopril 10 mg PO DAILY 03/18/18 03/20/18 History meloxicam 7.5 mg PO BID 03/18/18 03/18/18 History [id number] 3 drp OTIC (EAR) QID 03/18/18 03/18/18 History tretinoin 1 applic TOPICAL QPM 03/18/18 03/18/18 History metoprolol tartrate 25 mg PO BID 03/20/18 03/20/18 History pramipexole 4 tab PO HS 03/20/18 03/20/18 History Exam Vital signs: Vital Signs 03/20/18 01:42 03/20/18 07:26 Temperature 97.6 F Pulse Rate 64 60 Respiratory Rate 20 17 Blood Pressure 127/87 131/63 Pulse Oximetry 98 95 Intake & Output 03/19/18 03/20/18 03/20/18 18:59 06:59 18:59 Intake Total 1000 / 1000 Balance 1000 / 1000 Weight 61.235 kg Intake: IV 1000 / 1000 NS Inj 1,000 ML @ Wide Open IV. 1000 / 1000 SIG BOLUS ALESSANDRO Rx#:[id number] Narrative: GENERAL: NAD, AAOx3 SKIN: Warm and dry. HEENT: Atraumatic. Normocephalic. Pupils equal and round. No scleral icterus. No injection or drainage. No nasal bleeding or discharge. Mucous membranes pink and moist. NECK: Trachea midline. No JVD. CARDIO: Regular rate and rhythm. RESP: No accessory muscle use. Clear to auscultation. Breath sounds equal bilaterally. ABD: +BS, soft, RUQ mild tenderness, biliary drainage catheter in place in right mid abdomen, mildly distended. EXT: Extremities without clubbing, cyanosis, or edema. No obvious deformities. NEURO: Awake and alert. No obvious cranial nerve deficits. Motor grossly within normal limits. Five out of 5 muscle strength in the arms and legs. Normal speech. PSYCHIATRIC: Appropriate mood and affect; insight and judgment normal. Results - Labs CBC & Chem 7: 03/20/18 02:40 03/20/18 02:40 Labs: Short CBC 03/20/18 Range/Units 02:40 WBC 9.5 (4.0-11.0) th/mm3 Hgb 11.4 L (11.6-15.3) gm/dL Hct 33.5 L (35.0-46.0) % Plt Count 300 (150-450) th/mm3 BMP 03/20/18 02:40 Sodium 133 L Potassium 4.1 Chloride 99 Carbon Dioxide 22.1 BUN 16 Creatinine 0.87 Calcium 9.3 Liver Function 03/20/18 Range/Units 02:40 Total Bilirubin 3.1 H (0.2-1.0) mg/dL AST 83 H (15-37) U/L ALT 207 H (10-53) U/L Alkaline Phosphatase 579 H (45-117) U/L Albumin 3.8 (3.4-5.0) g/dL - Imaging Impressions Abdomen/Pelvis CT 03/20/18 02:02 CONCLUSION: 1. Interval development of pneumoperitoneum in the right upper abdominal quadrant. Air tracks into the enrique hepatis and along the medial aspect of the right hepatic lobe. 2. Hepatic biliary drainage catheter enters the right ducts with the cope loop appropriately positioned in the second portion of the duodenum. Persistent dilation of the left hepatic ducts. 3. Bibasilar atelectatic changes, right greater than left. Chest X-Ray 03/20/18 02:03 CONCLUSION: No acute cardiopulmonary process. Caprini VTE Risk Assessment Caprini VTE Risk Assessment: Moderate/High Risk (score >= 2) Caprini Risk Assessment Model: Point Value = 1 Point Value = 2 Point Value = 3 Point Value = 5 Age 41-60 Minor surgery BMI > 25 kg/m2 Swollen legs Varicose veins or History of unexplained or recurrent spontaneous Oral contraceptives or hormone replacement Sepsis (< 1 month) Serious lung disease, including pneumonia (< 1 month) Abnormal pulmonary function Acute myocardial infarction Congestive heart failure (< 1 month) History of inflammatory bowel disease Medical patient at bed rest Age 61-74 Arthroscopic surgery Major open surgery (> 45 min) Laparoscopic surgery (> 45 min) Malignancy Confined to bed (> 72 hours) Immobilizing plaster cast Central venous access Age >= 75 History of VTE Family history of VTE Factor V Leiden Prothrombin [id number] Lupus anticoagulant Anticardiolipin antibodies Elevated serum homocysteine Heparin-induced thrombocytopenia Other congenital or acquired thrombophilia Stroke (< 1 month) Elective arthroplasty Hip, pelvis, or leg fracture Acute spinal cord injury (< 1 month) Prophylaxis Regimen: Total Risk Factor Score Risk Level Prophylaxis Regimen 0-1 Low Early ambulation 2 Moderate Order ONE of the following: *Sequential Compression Device (SCD) *Heparin 5000 units SQ BID 3-4 Higher Order ONE of the following medications: *Heparin 5000 units SQ TID *Enoxaparin/Lovenox 40 mg SQ daily (WT < 150 kg, CrCl > 30 mL/min) *Enoxaparin/Lovenox 30 mg SQ daily (WT < 150 kg, CrCl > 10-29 mL/min) *Enoxaparin/Lovenox 30 mg SQ BID (WT < 150 kg, CrCl > 30 mL/min) AND/OR *Sequential Compression Device (SCD) 5 or more Highest Order ONE of the following medications: *Heparin 5000 units SQ TID (Preferred with Epidurals) *Enoxaparin/Lovenox 40 mg SQ daily (WT < 150 kg, CrCl > 30 mL/min) *Enoxaparin/Lovenox 30 mg SQ daily (WT < 150 kg, CrCl > 10-29 mL/min) *Enoxaparin/Lovenox 30 mg SQ BID (WT < 150 kg, CrCl > 30 mL/min) AND *Sequential Compression Device (SCD) Assessment and Plan - Assessment (1) Pneumoperitoneum Code(s): K66.8 - Other specified disorders of peritoneum Status: Acute Plan: Pneumoperitoneum Bile duct mass Elevated LFTs - Pt is a 72 y/o WF who was recently found to have elevated LFTs. She began outpt workup for this in 11/2017. She had an outpt MRCP on 01/03/18 which noted a dilatation of the left hepatic ducts with a tight stricture at the junction of the CBD. Her tumor markers were negative. She had a weakly positive AMA. Her outpt LFTs continued to rise. Pt was admitted by GI for an attempted ERCP on with Dr. Pringle but he was unable to obtain cannulate either the bile duct or the pancreatic duct and so a sphincterotomy was performed after which he was able to advance the wire into the pancreatic duct but was unable to find the opening for the bile duct. 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 - Pathology is pending. - Pt returned to the ED at [facility] on 03/20 with increased abdominal pain, bloating sensation, and nausea. - Her labs in the ED noted an improvement in her LFTs compared to labs on when she was previously admitted. Her TBili has decreased from 6.6 to 3.1, AST from 233 to 83, ALT from 357 to 207, and AlkPhos from 706 to 579. - She reports that she has had consistent output from the biliary drain. She drained about 300mL last night and currently has about 250mL in the bag this morning. - CT Abd/pelvis in the ED which revealed interval development of pneumoperitoneum in the right upper abdominal quadrant with air tracking into the enrique hepatis and along the medial aspect of the right hepatic lobe, hepatic biliary drainage catheter enters the right ducts with the cope loop appropriately positioned in the second portion of the duodenum, persistent dilation of the left hepatic ducts, and bibasilar atelectatic changes, right greater than left. - Consult GI - Liquid diet as tolerated - Pain control PRN - Antiemetics - Gentle IVF as pt has not eaten much of anything inthe last 2 days. - Supportive care - Repeat labs in AM HTN Paroxysmal SVT - Pt is on Lisinopril 10mg po daily and recently Metoprolol 25mg po BID was added as an outpt - Hold the LIsinopril for now as pts BP is normal. - Resume Metoprolol and monitor vitals closely. - Telemetry PVD - Her PCP had recently decided to hold her Pletal due to a possible side effect of itching. - Resume Plavix if ok with GI - Cont. ASA COPD - Duonebs PRN (2) Mass of bile duct Code(s): K83.8 - Other specified diseases of biliary tract Status: Acute (3) Elevated LFTs Code(s): R94.5 - Abnormal results of liver function studies Status: Acute (4) HTN (hypertension) Code(s): I10 - Essential (primary) hypertension Status: Chronic (5) Paroxysmal SVT (supraventricular tachycardia) Code(s): I47.1 - Supraventricular tachycardia Status: Chronic (6) PVD (peripheral vascular disease) Code(s): I73.9 - Peripheral vascular disease, unspecified Status: Chronic (7) COPD (chronic obstructive pulmonary disease) Code(s): J44.9 - Chronic obstructive pulmonary disease, unspecified Status: Chronic
[2018-03-20] MEDS: Fluorometholone 0.1% Opth Drops 5 ML Bottle EACH EYE SCH ×2 (09:12→15:36)
[2018-03-20] MEDS: Calcium Carbonate 500 MG Tablet PO SCH ×2 (09:13→09:17)
--- NOTE | 2018-03-20 13:02 | ECG ---
Date Performed: 03/20/2018 Time Performed: 01:45:37 PTAGE: 72 years EKG: Sinus rhythm RIGHT BUNDLE BRANCH BLOCK ABNORMAL ECG Since the PREVIOUS TRACING , no significant change noted PREVIOUS TRACING --201- 10.57.42 DOCTOR: Mikhail Calloway Interpretating Date/Time 03/20/2018 13:00:17
--- NOTE | 2018-03-20 17:54 | P.CONGI ---
History of Present Illness Consult date: 03/20/18 Consult reason: Abdominal pain Chief complaint: pneumoperitoneum s/p biliary biopsy History of Present Illness: Patient is a 72-year-old female well-known to me from recent encounter with known elevated liver function tests I had attempted an ERCP on her and I was unable to cannulate the common bile duct and the patient was sent home to come back on the for an outpatient PTC with biliary drain placement she then went home and late last night early this morning she experienced excruciating right sided and right upper quadrant pain with nausea and so she presented to the hospital on admission a CT of the abdomen revealed pneumoperitoneum and the liver function tests show great improvement she was not febrile and her white count was not elevated the patient reports pain mostly when she moves and mostly at the point of entry of the biliary drain when she is laying still there is no ongoing pain Review of Systems All other systems reviewed negative except as stated in HPI PMFSH - History History Provided By: Patient - Medical History Medical History: Medical History (Last Reviewed 03/20/18 @ 02:32 by Lavon Dubose MD) PVD (peripheral vascular disease) (Chronic) COPD (chronic obstructive pulmonary disease) (Chronic) Back pain (Acute) Arthritis (Acute) Visual impairment (Acute) Heartburn (Acute) Dysrhythmia, cardiac (Acute) Admission for biliary drainage tube placement - Surgical History Surgical History: Surgical History (Last Reviewed 03/20/18 @ 02:32 by Lavon Dubose MD) History of ERCP - Tobacco History Second Hand Smoke Exposure: No Tobacco Use In Past 30 Days: No Smoking Status: Former smoker Tobacco Type: Cigarettes - Alcohol History How Often Do You Have a Drink Containing Alcohol: 2 to 4 times a month - Substance Use History Substance History: No History of Abuse - Travel History Recent Travel Out of the Country Within the Last 8 Weeks: No - Immunization History Tetanus Immunization: Unsure Hx Influenza Vaccine This Season: Yes Medications and Allergies Active Medications: Active Medications Acetaminophen (Tylenol) 650 mg PO Q4H PRN PRN Reason: Temp > 100.4 Hydrocodone Bitart/Acetaminophen ([place] 7.5/325) 1 tab PO Q8H PRN PRN Reason: Pain 3-10 Last Admin: 03/20/18 15:35 Dose: 1 tab Al Hydroxide/Mg Hydroxide (Milk Of Magnesia Liq) 30 ml PO Q12H PRN PRN Reason: Mild Constipation Albuterol (Duoneb Neb (Prn)) 1 ampul NEB Q4HR NEB PRN PRN Reason: SOB/wheezing Alprazolam (Xanax) 0.5 mg PO BID [facility] Last Admin: 03/20/18 09:14 Dose: 0.5 mg Aspirin (Aspirin Chew) 81 mg PO DAILY [facility] Last Admin: 03/20/18 09:13 Dose: 81 mg Atorvastatin Calcium (Lipitor) 40 mg PO HS [facility] Bupropion HCl (Wellbutrin Sr) 150 mg PO BID [facility] Last Admin: 03/20/18 09:14 Dose: 150 mg Ezetimibe (Zetia) 10 mg PO DAILY [facility] Last Admin: 03/20/18 09:14 Dose: 10 mg Fluorometholone (Fml Opth Drops) 1 drop EACH EYE TID [facility] Last Admin: 03/20/18 15:36 Dose: 1 drop Fluticasone Propionate (Flovent Hfa 110 Mcg Inh) 2 puff INH BID [facility] Last Admin: 03/20/18 09:12 Dose: 2 puff Sodium Chloride (Ns Inj) 1,000 mls @ 84 mls/hr IV.CONT .[id number] [facility] Stop: 03/20/18 19:54 Last Admin: 03/20/18 09:12 Dose: 84 mls/hr Metoprolol Tartrate (Lopressor) 25 mg PO BID [facility] Last Admin: 03/20/18 09:14 Dose: 25 mg Ondansetron HCl (Zofran Odt) 4 mg PO Q4H PRN PRN Reason: nausea/vomiting Patient Own Medication ( Azelastine [ Azelastine] 1 Drp) 0 each EACH EYE BID PRN PRN Reason: ITCHY EYES Senna/Docusate Sodium (Kaylynn-Colace) 1 tab PO BID [facility] Last Admin: 03/20/18 09:13 Dose: 1 tab Allergies Allergy/AdvReac Type Severity Reaction Status Date / Time zolpidem Allergy Intermediate Hallucinati Verified 03/15/18 11:23 ons Home Medications Medication Instructions Recorded Confirmed Type alprazolam 0.5 mg PO BID 03/15/18 03/20/18 History fluorometholone acetate 1 drp OPHTHALMIC (EYE) TID 03/15/18 03/20/18 History albuterol sulfate [Ventolin HFA] 2 puff INHALATION Q6H PRN 03/18/18 03/20/18 History alendronate 70 mg PO QWEEK 03/18/18 03/20/18 History aspirin 81 mg PO DAILY 03/18/18 03/20/18 History atorvastatin 40 mg PO DAILY 03/18/18 03/20/18 History azelastine 1 drp OPHTHALMIC (EYE) BID 03/18/18 03/20/18 History bupropion HCl 150 mg PO BID 03/18/18 03/20/18 History calcium carbonate-vitamin D3 1 tab PO BID 03/18/18 03/20/18 History [Caltrate with Vitamin D3] cholecalciferol (vitamin D3) 5,000 unit PO DAILY 03/18/18 03/20/18 History [Vitamin D3] clopidogrel [Plavix] 75 mg PO DAILY 03/18/18 03/20/18 History fluticasone [Flovent HFA] 2 puff INHALATION BID 03/18/18 03/20/18 History tretinoin 1 applic TOPICAL QPM 03/18/18 03/20/18 History lisinopril 20 mg PO DAILY 03/20/18 03/20/18 History metoprolol tartrate 25 mg PO BID 03/20/18 03/20/18 History pramipexole 4 tab PO HS 03/20/18 03/20/18 History Exam Vital signs: Vital Signs 03/20/18 01:42 03/20/18 07:26 03/20/18 12:00 Temperature 97.6 F 98.1 F Pulse Rate 64 60 63 Respiratory Rate 20 17 18 Blood Pressure 127/87 131/63 128/69 Pulse Oximetry 98 95 97 03/20/18 15:03 Temperature 98.7 F Pulse Rate 62 Respiratory Rate 18 Blood Pressure 149/65 H Pulse Oximetry 95 Intake & Output 03/19/18 03/20/18 03/20/18 18:59 06:59 18:59 Intake Total 1000 / 1000 Balance 1000 / 1000 Weight 61.235 kg Intake: IV 1000 / 1000 NS Inj 1,000 ML @ Wide Open IV. 1000 / 1000 SIG BOLUS ALESSANDRO Rx#:[id number] - Constitutional no acute distress - Routine HEENT Exam Head: Present: normocephalic Eye: Present: EOMI ENT: Present: mucous membranes moist - Routine Neck Exam Present: supple - Routine Respiratory Exam Present: CTA bilaterally - Routine Cardiovascular Exam Present: RRR, S1, S2 - Routine Abdominal Exam Present: soft, tenderness (Mild upper and right upper quadrant tenderness no rebound or guarding). Absent: distended, rebound - Routine Extremities Exam Absent: cyanosis, clubbing, edema - Routine Skin Exam Present: dry, warm - Routine Neurological Exam Present: alert, oriented X3 Results - Labs CBC & Chem 7: 03/20/18 02:40 03/20/18 02:40 Labs: Laboratory Results - last 24 hr 03/20/18 03/20/18 02:40 02:40 CBC w Diff Manual diff required WBC 9.5 RBC 3.35 L Hgb 11.4 L Hct 33.5 L MCV 99.8 MCH 34.0 MCHC 34.1 RDW 15.5 Plt Count 300 MPV 9.5 WBC Differential Manual diff final Seg Neuts % (Manual) 72 H Band Neuts % (Manual) 2 Lymphocytes % (Manual) 19 Monocytes % (Manual) 7 Abs Neuts (Manual) 7.0 Differential Comment . Platelet Estimate Normal Platelet Morphology Normal RBC Morphology Normal Sodium 133 L Potassium 4.1 Chloride 99 Carbon Dioxide 22.1 Anion Gap 12 BUN 16 Creatinine 0.87 Estimated GFR 64 L Random Glucose 118 H Calcium 9.3 Total Bilirubin 3.1 H AST 83 H ALT 207 H Alkaline Phosphatase 579 H Total Protein 7.7 D Albumin 3.8 - Imaging Impressions Abdomen/Pelvis CT 03/20/18 02:02 CONCLUSION: 1. Interval development of pneumoperitoneum in the right upper abdominal quadrant. Air tracks into the enrique hepatis and along the medial aspect of the right hepatic lobe. 2. Hepatic biliary drainage catheter enters the right ducts with the cope loop appropriately positioned in the second portion of the duodenum. Persistent dilation of the left hepatic ducts. 3. Bibasilar atelectatic changes, right greater than left. Chest X-Ray 03/20/18 02:03 CONCLUSION: No acute cardiopulmonary process. 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
== END 2018-03-20 18:11 | disposition home or self-care (01) ==
LOC: NEPE 01:39 → NEDA 05:22 → N06 11:11
PROVIDERS: ADMIT Hospitalist; ATTEND Hospitalist

== ENCOUNTER 2018-03-22 12:27 | Inpatient (IN) ==
[2018-03-22] MEDS: HYDROmorphone PF Inj 2 MG/ML Vial IV.PUSH PRN ×3 (14:23→18:54)
--- NOTE | 2018-03-22 15:27 | CT ---
EXAM DATE: 03/22/2018 3:17 PM EDT AGE/SEX: 72 years / Female INDICATIONS: Abdominal pain, follow up retroperitoneal air. CLINICAL DATA: This is the patient's initial encounter. Patient reports that signs and symptoms have been present for 1 day and indicates a pain score of 3/10. MEDICAL/SURGICAL HISTORY: Chronic obstructive pulmonary disease. Peripheral vascular disease. . Biliary drainage tube. ORAL CONTRAST: No oral contrast ingested. RADIATION DOSE: 6.71 CTDI (mGy) COMPARISON: [facility] – [place], CT ABDOMEN & PELVIS W CONTRAST, 03/20/2018. . TECHNIQUE: Multiple contiguous axial images were obtained through the abdomen and pelvis following b olus infusion of 95 ml Omnipaque 350 (iohexol) nonionic water-soluble contrast as a single exam dos e. No oral contrast ingested. Using automated exposure control and adjustment of the mA and/or kV ac cording to patient size, radiation dose was kept as low as reasonably achievable to obtain optimal di agnostic quality images. DICOM format image data is available electronically for review and comparis on. FINDINGS: The osseous structures demonstrate degenerative changes of the spine. Atherosclerotic calcification o f the aorta and iliac vasculature noted. There is consolidation in the right lower lobe noted. Bilate ral breast implants are present. There is marked dilatation of the left intrahepatic biliary tree whi ch is unchanged. A percutaneous biliary catheter is seen with distal coil in the second portion of th e duodenum. Kidneys, spleen, pancreas, adrenal glands are unremarkable. There is a small amount of fr ee air again seen in the right upper quadrant in the enrique hepatis, adjacent to the IVC and adjacent to the inga of the diaphragm on the right. Appendix, small bowel and large bowel are normal. Urinary bladder, uterus and adnexa are unremarkable. CONCLUSION: 1. There is a small amount of free air in right upper quadrant, not significant changed. Electronically signed by: Mickey Aguilar MD 03/22/2018 3:25 PM EDT
[2018-03-22] MEDS ORDERED: Bisacodyl 10 MG Supp RECTAL PRN (17:22)
[2018-03-22] MEDS ORDERED: Acetaminophen 325 MG Tablet PO PRN (17:22)
[2018-03-22] MEDS ORDERED: Naloxone Inj 0.4 MG/ML Vial IV.PUSH PRN (17:22)
[2018-03-22] MEDS: Enoxaparin Inj 40 MG/0.4 ML Syringe SQ SCH (18:54)
--- NOTE | 2018-03-22 20:53 | P.HPFP ---
History of Present Illness Primary Care Physician: Christiane Cespedes MD History of Present Illness: A pleasant 72 yo female who is being admitted for intractable right upper quadrant abdominal pain. 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 She then had PTC with biliary drain and stent placement on 03/18/18 by IR which noted obstructing process at the hepatic hilum bile duct confluence consistent with Klatskin's tumor. Biopsies were taken AND RETURNED TODAY SHOWING GLANDULAR TISSUE WITH CRUSH ARTIFACT AND NO DEFINITIVE MALIGNANCY IDENTIFIED. Left lobe ducts were not clearly visualized and were presumed obstructed at the hilum. [place] [facility] [place] secondary to the increased pain and nausea, with noted improvement in labs - TBili had decreased from 6.6 to 3.1, AST from 233 to 83, ALT from 357 to 207, and AlkPhos from 706 to 579. She had a CT Abd/pelvis in the ED on 03/20 which revealed interval development of pneumoperitoneum in the right upper abdominal quadrant with air tracking into the enrique hepatis and along the medial aspect of the right hepatic lobe, hepatic biliary drainage catheter enters the right ducts with the cope loop appropriately positioned in the second portion of the duodenum, persistent dilation of the left hepatic ducts, and bibasilar atelectatic changes, right greater than left. Patient returned today for internalization of the drain and underwent that procedure this afternoon with IR. Postoperatively however she began to develop severe right upper quadrant abdominal pain associated with nausea but no vomiting. Abdominal CT this afternoon showed a small amount of free air in the RUQ, not significantly changed. Patient has now received IV dilaudid and states the pain is much more controlled. She endorses poor appetite but denies any nausea or vomiting at home over the past 2 days. She described the RUQ abd pain as sharp, severe, intermittent, worsened by movement and deep breaths. - Diagnosis (1) Intractable right upper quadrant abdominal pain (2) Pneumoperitoneum (3) Mass of bile duct Review of Systems All other systems reviewed negative except as stated in HPI PMFSH - History History Provided By: Patient, Medical Record - Medical History Medical History: Medical History (Last Reviewed 03/22/18 @ 20:48 by Frieda Arthur MD) PVD (peripheral vascular disease) (Chronic) COPD (chronic obstructive pulmonary disease) (Chronic) Back pain (Acute) Arthritis (Acute) Visual impairment (Acute) Heartburn (Acute) Dysrhythmia, cardiac (Acute) Admission for biliary drainage tube placement - Surgical History Surgical History: Surgical History (Last Reviewed 03/22/18 @ 20:48 by Frieda Arthur MD) History of ERCP - Tobacco History Second Hand Smoke Exposure: No Tobacco Use In Past 30 Days: No Smoking Status: Former smoker Tobacco Type: Cigarettes - Alcohol History How Often Do You Have a Drink Containing Alcohol: Monthly or less - Substance Use History Substance History: No History of Abuse - Travel History Recent Travel in the [place] Within the Last 8 Weeks: No Recent Travel Out of the Country Within the Last 8 Weeks: No - Immunization History Tetanus Immunization: Unsure Hx Influenza Vaccine This Season: No Medications and Allergies Active Medications: Active Medications Acetaminophen (Tylenol) 650 mg PO Q6HR PRN PRN Reason: PAIN SCALE 1 TO 2 Al Hydroxide/Mg Hydroxide (Milk Of Kelly Mitchell) 30 ml PO Q12H PRN PRN Reason: Mild Constipation Albuterol (Ventolin Hfa Inh) 2 puff INH Q6H PRN PRN Reason: SHORTNESS OF BREATH Alprazolam (Xanax) 0.5 mg PO BID [facility] Aspirin (Aspirin Chew) 81 mg PO DAILY [facility] Atorvastatin Calcium (Lipitor) 40 mg PO HS [facility] Bisacodyl (Dulcolax Supp) 10 mg RECTAL DAILY PRN PRN Reason: SEVERE CONSITIPATION Bupropion HCl (Wellbutrin Sr) 150 mg PO BID [facility] Clopidogrel Bisulfate (Plavix) 75 mg PO DAILY [facility] Ezetimibe (Zetia) 10 mg PO DAILY [facility] Enoxaparin Sodium (Lovenox Inj) 40 mg SQ Q24H [facility] Last Admin: 03/22/18 18:54 Dose: 40 mg Hydromorphone HCl (Dilaudid Pf Inj) 0.5 mg IV.PUSH Q3H PRN PRN Reason: PAIN 3-5;IF UNABLE TO TAKE PO Hydromorphone HCl (Dilaudid Pf Inj) 1 mg IV.PUSH Q3H PRN PRN Reason: PAIN 6-10; IF UNABLE TO TAKE P Last Admin: 03/22/18 18:54 Dose: 1 mg Lactulose (Lactulose Liq) 30 ml PO DAILY PRN PRN Reason: SEVERE CONSITIPATION Lisinopril (Prinivil) 10 mg PO DAILY [facility] Metoprolol Tartrate (Lopressor) 25 mg PO BID [facility] Naloxone HCl (Narcan Inj) 0.4 mg IV.PUSH UNSCH PRN PRN Reason: SEE LABEL COMMENTS Ondansetron HCl (Zofran Inj) 4 mg IV.PUSH Q6H PRN PRN Reason: NAUSEA OR VOMITING Oxycodone HCl (Roxicodone) 5 mg PO Q4H PRN PRN Reason: PAIN SCALE 3 TO 5 Oxycodone HCl (Roxicodone) 10 mg PO Q4H PRN PRN Reason: PAIN SCALE 6 TO 10 Pt Own Med Azelastine Opth Drops 0 each EACH EYE BID [facility] Pramipexole Dihydrochloride (Mirapex) 0.5 mg PO HS [facility] Senna/Docusate Sodium (Kaylynn-Colace) 1 tab PO BID [facility] Sennosides (Senokot) 17.2 mg PO Q12H PRN PRN Reason: Moderate Constipation Temazepam (Restoril) 15 mg PO HS PRN PRN Reason: INSOMNIA Allergies Allergy/AdvReac Type Severity Reaction Status Date / Time zolpidem Allergy Intermediate Hallucinati Verified 03/22/18 13:23 ons Home Medications Medication Instructions Recorded Confirmed Type alprazolam 0.5 mg PO BID 03/15/18 03/22/18 History fluorometholone acetate 1 drp OPHTHALMIC (EYE) TID 03/15/18 03/22/18 History albuterol sulfate [Ventolin HFA] 2 puff INHALATION Q6H PRN 03/18/18 03/22/18 History alendronate 70 mg PO QWEEK 03/18/18 03/22/18 History aspirin 81 mg PO DAILY 03/18/18 03/22/18 History atorvastatin 40 mg PO HS 03/18/18 03/22/18 History azelastine 1 drp OPHTHALMIC (EYE) BID 03/18/18 03/22/18 History bupropion HCl 150 mg PO BID 03/18/18 03/22/18 History calcium carbonate-vitamin D3 1 tab PO BID 03/18/18 03/22/18 History [Caltrate with Vitamin D3] cholecalciferol (vitamin D3) 5,000 unit PO DAILY 03/18/18 03/22/18 History [Vitamin D3] clopidogrel [Plavix] 75 mg PO DAILY 03/18/18 03/22/18 History fluticasone [Flovent HFA] 2 puff INHALATION BID 03/18/18 03/22/18 History tretinoin 1 applic TOPICAL QPM 03/18/18 03/22/18 History lisinopril 20 mg PO DAILY 03/20/18 03/22/18 History metoprolol tartrate 25 mg PO BID 03/20/18 03/22/18 History pramipexole 4 tab PO HS 03/20/18 03/22/18 History Exam Vital signs: Vital Signs 03/22/18 13:33 03/22/18 17:20 03/22/18 18:00 Temperature 98.5 F 97.9 F Pulse Rate 75 71 89 Respiratory Rate 20 20 16 Blood Pressure 146/57 H 123/63 129/60 Pulse Oximetry 92 L 97 94 L Intake & Output 03/22/18 03/22/18 03/23/18 06:59 18:59 06:59 Weight 61.235 kg Other: Date of Last Bowel Movement 03/21/18 Weight On Admission 61.235 kg Narrative: Gen: pleasant 72 yo female in NAD laying in bed. HEENT: NCAT, no scleral icterus or injection. OP patent with moist mucous membranes. Neck: supple without LAD. CV: quiet 2/6 systolic murmur at LSB, S1+S2, regular rate and rhythm. Lungs: CTAB, normal resp effort on room air. Abdomen: BS present, +TTP in right upper quadrant without rebound tenderness. soft and nondistended. Extremities: dry and well perfused. Skin: mild jaundice, no rash. Neuro: A&O, moves all extremities, normal speech. Psych; mildly tearful. normal affect and insight. Results - Imaging Impressions Abdomen/Pelvis CT 03/22/18 00:00 CONCLUSION: 1. There is a small amount of free air in right upper quadrant, not significant changed. Caprini VTE Risk Assessment Caprini VTE Risk Assessment: Moderate/High Risk (score >= 2) Caprini Risk Assessment Model: Point Value = 1 Point Value = 2 Point Value = 3 Point Value = 5 Age 41-60 Minor surgery BMI > 25 kg/m2 Swollen legs Varicose veins or History of unexplained or recurrent spontaneous Oral contraceptives or hormone replacement Sepsis (< 1 month) Serious lung disease, including pneumonia (< 1 month) Abnormal pulmonary function Acute myocardial infarction Congestive heart failure (< 1 month) History of inflammatory bowel disease Medical patient at bed rest Age 61-74 Arthroscopic surgery Major open surgery (> 45 min) Laparoscopic surgery (> 45 min) Malignancy Confined to bed (> 72 hours) Immobilizing plaster cast Central venous access Age >= 75 History of VTE Family history of VTE Factor V Leiden Prothrombin [id number] Lupus anticoagulant Anticardiolipin antibodies Elevated serum homocysteine Heparin-induced thrombocytopenia Other congenital or acquired thrombophilia Stroke (< 1 month) Elective arthroplasty Hip, pelvis, or leg fracture Acute spinal cord injury (< 1 month) Prophylaxis Regimen: Total Risk Factor Score Risk Level Prophylaxis Regimen 0-1 Low Early ambulation 2 Moderate Order ONE of the following: *Sequential Compression Device (SCD) *Heparin 5000 units SQ BID 3-4 Higher Order ONE of the following medications: *Heparin 5000 units SQ TID *Enoxaparin/Lovenox 40 mg SQ daily (WT < 150 kg, CrCl > 30 mL/min) *Enoxaparin/Lovenox 30 mg SQ daily (WT < 150 kg, CrCl > 10-29 mL/min) *Enoxaparin/Lovenox 30 mg SQ BID (WT < 150 kg, CrCl > 30 mL/min) AND/OR *Sequential Compression Device (SCD) 5 or more Highest Order ONE of the following medications: *Heparin 5000 units SQ TID (Preferred with Epidurals) *Enoxaparin/Lovenox 40 mg SQ daily (WT < 150 kg, CrCl > 30 mL/min) *Enoxaparin/Lovenox 30 mg SQ daily (WT < 150 kg, CrCl > 10-29 mL/min) *Enoxaparin/Lovenox 30 mg SQ BID (WT < 150 kg, CrCl > 30 mL/min) AND *Sequential Compression Device (SCD) Assessment and Plan - Assessment (1) Intractable right upper quadrant abdominal pain Code(s): R10.11 - Right upper quadrant pain Status: Acute (2) Pneumoperitoneum Code(s): K66.8 - Other specified disorders of peritoneum Status: Acute (3) Mass of bile duct Code(s): K83.8 - Other specified diseases of biliary tract Status: Acute - Assessment and Plan Intractable RUQ abdominal pain s/p int-ext drain placement today. Likely related to the known biliary mass. Started on PO meds, with IV dilaudid for breakthrough as needed and she is much more comfortable. I will check CBC, CMP. Vital signs are stable and no evidence of cholangitis at this time. Home medications resumed. Lovenox for DVT prophylaxis. H&P: Quality - VTE Deep Vein Thrombosis/Pulmonary Embolism Present on Admission: No
[2018-03-22] MEDS ORDERED: Temazepam 15 MG Capsule PO PRN (21:00)
[2018-03-22] MEDS: Senna/Docusate Sodium 8.6/50 MG Tablet PO SCH (21:14)
[2018-03-22] MEDS: ALPRAZolam 0.5 MG Tablet PO SCH (21:14)
[2018-03-22] MEDS: buPROPion 150 MG 12 HR Tablet PO SCH (21:14)
[2018-03-22] MEDS: Metoprolol Tartrate 25 MG Tablet PO SCH (21:14)
[2018-03-22 22:32] LABS: Baso % (Auto) 0.4 % (0.0-2.0); Eos % (Auto) 0.4 % (0.0-4.0); Hematocrit 25.9 % (35.0-46.0); Hemoglobin 8.7 gm/dL (11.6-15.3); Lymph % (Auto) 17.5 % (9.0-44.0); Mean Corpuscular HGB Conc 33.8 % (32.0-36.0); Mean Corpuscular Hemoglobin 34.5 pg (27.0-34.0); Mean Corpuscular Volume 102.1 fL (80.0-100.0); Mean Platelet Volume 9.3 fL (7.0-11.0); Mono # (Auto) 0.8 th/mm3 (0.0-0.9); Mono % (Auto) 7.1 % (0.0-8.0); Neut # (Auto) 8.4 th/mm3 (1.8-7.7); Neut % (Auto) 74.6 % (16.0-70.0); Platelet Count 254 th/mm3 (150-450); Red Blood Count 2.53 mil/mm3 (4.00-5.30); White Blood Count 11.2 th/mm3 (4.0-11.0)
--- NOTE | 2018-03-22 22:35 | MB ---
cc: Isis Wagner MD DATE: 03/22/2018 CHIEF COMPLAINT: 1. Elevated bilirubin. 2. Possibility of Klatskin tumor. HISTORY OF PRESENT ILLNESS: The patient is a 72-year-old lady with a history of COPD, peripheral vascular disease, arthritis, arrhythmia, who was admitted with intractable right upper quadrant pain. She underwent an ERCP on 03/15/2018 which was unsuccessful to cannulate the bile duct or pancreatic duct. She had a sphincterectomy, but the bile duct was still not able to be localized. She then had a percutaneous biliary drain with stent placement on 03/18/2018 by IR with a noted obstructing process at the hepatic hilum and bile duct confluence consistent with a Klatskin tumor. Biopsies taken and returned showing glandular tissue with crush artifact and no definitive malignancy identified. Left lobe ducts were not clearly visualized and were presumed to be obstructed at the hilum. She returned to the emergency room on 03/20/2018 due to increased pain. Her labs including her total bilirubin and hepatic enzymes had improved. Repeat CT scan in the ER showed interval development of pneumoperitoneum in the right upper abdomen with air tracking into the enrique hepatis along the medial aspect of the right hepatic lobe. Her pain is improved with IV Dilaudid. ROS as above in HPI all others negative PAST MEDICAL HISTORY: Peripheral vascular disease, COPD, osteoarthritis, arrhythmia, following with cardiology. PAST SURGICAL HISTORY: ERCP. SOCIAL HISTORY: The patient is a former tobacco abuser. She reports intermittent alcohol use. Denies any substance abuse. Famitly history: no family history of malignancy HOSPITAL MEDICATIONS: Include: 1. Albuterol. 2. Aspirin. 3. Atorvastatin. 4. Wellbutrin. 5. Plavix. 6. Lovenox. 7. Zetia. 8. Hydromorphone. 9. Metoprolol. 10. Oxycodone. 11. Restoril. 12. Senna. 13. Docusate. PHYSICAL EXAMINATION: GENERAL: Elderly lady in no distress, thin. HEENT: Head is normocephalic, atraumatic. NECK: Supple. No palpable lymphadenopathy. CARDIOVASCULAR: Regular rate and rhythm with no murmurs. RESPIRATORY: Clear to auscultation bilaterally. ABDOMEN: Soft, nontender. Drain in place. EXTREMITIES: No edema. NEUROLOGIC: Grossly nonfocal. PSYCHIATRIC: Appropriate mood and affect. ASSESSMENT AND PLAN: 1. Suspicion for a Klatskin tumor. We will obtain an MRCP to obtain good visualization of the liver. GI consult pending. We will obtain labs to include CEA, CA 19-9 and AFP. Inpatient oncology service will continue to follow. 2. Elevated total bilirubin, downtrending after placment of drain MD JORGE A John/billy , 10:00 PM , 10:07 PM ENDY
[2018-03-22 22:56] LABS: Alanine Aminotransferase 101 U/L (10-53); Albumin 3.4 g/dL (3.4-5.0); Anion Gap 12 meq/L (5-15); Aspartate Aminotransferase 41 U/L (15-37); Blood Urea Nitrogen 19 mg/dL (7-18); Calcium 8.6 mg/dL (8.5-10.1); Carbon Dioxide 22.4 meq/L (21.0-32.0); Chloride 98 meq/L (98-107); Glomerular Filtration Rate 66 mL/min (>89); Glucose,Random 111 mg/dL (74-106); Potassium 4.1 meq/L (3.5-5.1); Sodium 132 meq/L (136-145)
[2018-03-22 22:59] LABS: Alkaline Phosphatase 380 U/L (45-117)
[2018-03-23] MEDS: HYDROmorphone PF Inj 2 MG/ML Vial IV.PUSH PRN ×4 (00:18→21:08)
[2018-03-23 06:06] LABS: Baso % (Auto) 0.5 % (0.0-2.0); Eos # (Auto) 0.1 th/mm3 (0.0-0.4); Eos % (Auto) 1.2 % (0.0-4.0); Hematocrit 22.7 % (35.0-46.0); Hemoglobin 8.1 gm/dL (11.6-15.3); Lymph % (Auto) 22.2 % (9.0-44.0); Mean Corpuscular HGB Conc 35.6 % (32.0-36.0); Mean Corpuscular Hemoglobin 35.9 pg (27.0-34.0); Mean Corpuscular Volume 100.9 fL (80.0-100.0); Mono # (Auto) 0.9 th/mm3 (0.0-0.9); Mono % (Auto) 10.1 % (0.0-8.0); Neut # (Auto) 6.1 th/mm3 (1.8-7.7); Platelet Count 220 th/mm3 (150-450); Red Blood Count 2.25 mil/mm3 (4.00-5.30); White Blood Count 9.2 th/mm3 (4.0-11.0)
[2018-03-23 06:33] LABS: Albumin 3.1 g/dL (3.4-5.0); Anion Gap 13 meq/L (5-15); Aspartate Aminotransferase 38 U/L (15-37); Blood Urea Nitrogen 22 mg/dL (7-18); Calcium 8.6 mg/dL (8.5-10.1); Carbon Dioxide 21.3 meq/L (21.0-32.0); Chloride 98 meq/L (98-107); Glomerular Filtration Rate 53 mL/min (>89); Glucose,Random 86 mg/dL (74-106); Potassium 3.9 meq/L (3.5-5.1); Sodium 132 meq/L (136-145)
[2018-03-23 06:34] LABS: Alanine Aminotransferase 88 U/L (10-53)
[2018-03-23 06:38] LABS: Alkaline Phosphatase 372 U/L (45-117); Carcinoembryonic Antigen 2.8 ng/mL (0.2-5.0); Total Protein 6.8 g/dL (6.4-8.2)
[2018-03-23] MEDS: buPROPion 150 MG 12 HR Tablet PO SCH ×2 (09:30→21:06)
[2018-03-23] MEDS: Ezetimibe 10 MG Tablet PO SCH (09:30)
[2018-03-23] MEDS: ALPRAZolam 0.5 MG Tablet PO SCH ×2 (09:30→21:06)
[2018-03-23] MEDS: Lisinopril 10 MG Tablet PO SCH (09:31)
[2018-03-23] MEDS: Senna/Docusate Sodium 8.6/50 MG Tablet PO SCH ×2 (09:31→21:07)
[2018-03-23] MEDS: Metoprolol Tartrate 25 MG Tablet PO SCH ×2 (09:31→21:07)
--- NOTE | 2018-03-23 09:52 | P.CONGI ---
History of Present Illness Consult date: 03/23/18 Consult reason: Biliary obstruction with PTC Chief complaint: CAP BILIARY DRAIN / K83.1 COMMON BILE DUCT STRICTU History of Present Illness: This is a 72 yo F known to our service, pt was initially seen by our service on March 15, underwent ERCP for evaluation of elevated LFTs found by PCP incidentally in routine lab work. The bile duct and pancreatic duct could not be cannulated, pt had sphincterotomy but procedure was terminated and etiology for biliary obstruction remained unclear. Pt was admitted to the hospital for observation and IR consulted for PTC placement and biopsy of biliary stricture. Procedure could not be done until March 18 due to patients Plavix that she is on for a stent in her leg. 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 Pa also noted that a separate left lobe drainage may need to be accomplished in the future if pt has persistent symptoms. Biopsy was done which was not definitive of malignancy. Tumor markers, CA 19-9 and AFP are WNL. Pt presented to the ER on Wednesday with complaints of continued pain to PTC site, she was seen by Dr. Pringle who noted no evidence of infection and that pt would be stable to be discharged with GI follow up in ten days. Pt presented back to the ER last night with complaints of continued RUQ abdominal pain to PTC site. Pt denies any worsening of the pain, states it has been constant since the procedure. Has a prescription for Hydrocodone 10mg which she states has not helped the pain at all. Reports some nausea, denies any emesis. Pt has not had any drainage from her PTC since yesterday. Oncology is following. Of note, reports her grandmother had history of pancreatic cancer. <Liya Krishnamurthy - Last Filed: 03/23/18 09:35> Review of Systems Constitutional: Reports weight loss Gastrointestinal: Reports abdominal pain, Reports nausea, Denies vomiting <Liya Krishnamurhty - Last Filed: 03/23/18 09:35> PMFSH - History History Provided By: Patient, Medical Record - Medical History Medical History: Medical History (Last Reviewed 03/23/18 @ 08:27 by Tameka Busby) PVD (peripheral vascular disease) (Chronic) COPD (chronic obstructive pulmonary disease) (Chronic) Back pain (Acute) Arthritis (Acute) Visual impairment (Acute) Heartburn (Acute) Dysrhythmia, cardiac (Acute) Admission for biliary drainage tube placement - Surgical History Surgical History: Surgical History (Last Reviewed 03/23/18 @ 08:27 by Tameka Busby) History of ERCP - Tobacco History Second Hand Smoke Exposure: No Tobacco Use In Past 30 Days: No Smoking Status: Former smoker Tobacco Type: Cigarettes - Alcohol History How Often Do You Have a Drink Containing Alcohol: Monthly or less - Substance Use History Substance History: No History of Abuse - Travel History Recent Travel in the [place] Within the Last 8 Weeks: No Recent Travel Out of the Country Within the Last 8 Weeks: No - Immunization History Tetanus Immunization: Unsure Hx Influenza Vaccine This Season: No <Liya Krishnamurthy - Last Filed: 03/23/18 09:35> - Medical History Medical History: Medical History (Last Reviewed 03/23/18 @ 08:27 by Tameka Busby) PVD (peripheral vascular disease) (Chronic) COPD (chronic obstructive pulmonary disease) (Chronic) Back pain (Acute) Arthritis (Acute) Visual impairment (Acute) Heartburn (Acute) Dysrhythmia, cardiac (Acute) Admission for biliary drainage tube placement - Surgical History Surgical History: Surgical History (Last Reviewed 03/23/18 @ 08:27 by Tameka Busby) History of ERCP <Fitz Kiran - Last Filed: 03/23/18 17:03> Medications and Allergies Active Medications: Active Medications Acetaminophen (Tylenol) 650 mg PO Q6HR PRN PRN Reason: PAIN SCALE 1 TO 2 Al Hydroxide/Mg Hydroxide (Milk Of Kelly Lisherly) 30 ml PO Q12H PRN PRN Reason: Mild Constipation Albuterol (Ventolin Hfa Inh) 2 puff INH Q6H PRN PRN Reason: SHORTNESS OF BREATH Alprazolam (Xanax) 0.5 mg PO BID [facility] Last Admin: 03/23/18 09:30 Dose: 0.5 mg Aspirin (Aspirin Chew) 81 mg PO DAILY [facility] Last Admin: 03/23/18 09:31 Dose: 81 mg Atorvastatin Calcium (Lipitor) 40 mg PO HS [facility] Last Admin: 03/22/18 21:14 Dose: 40 mg Bisacodyl (Dulcolax Supp) 10 mg RECTAL DAILY PRN PRN Reason: SEVERE CONSITIPATION Bupropion HCl (Wellbutrin Sr) 150 mg PO BID [facility] Last Admin: 03/23/18 09:30 Dose: 150 mg Clopidogrel Bisulfate (Plavix) 75 mg PO DAILY [facility] Last Admin: 03/23/18 09:31 Dose: 75 mg Ezetimibe (Zetia) 10 mg PO DAILY [facility] Last Admin: 03/23/18 09:30 Dose: 10 mg Enoxaparin Sodium (Lovenox Inj) 40 mg SQ Q24H [facility] Last Admin: 03/22/18 18:54 Dose: 40 mg Hydromorphone HCl (Dilaudid Pf Inj) 0.5 mg IV.PUSH Q3H PRN PRN Reason: PAIN 3-5;IF UNABLE TO TAKE PO Last Admin: 03/23/18 09:32 Dose: 0.5 mg Hydromorphone HCl (Dilaudid Pf Inj) 1 mg IV.PUSH Q3H PRN PRN Reason: PAIN 6-10; IF UNABLE TO TAKE P Last Admin: 03/23/18 00:18 Dose: 1 mg Lactulose (Lactulose Liq) 30 ml PO DAILY PRN PRN Reason: SEVERE CONSITIPATION Lisinopril (Prinivil) 10 mg PO DAILY [facility] Last Admin: 03/23/18 09:31 Dose: 10 mg Metoprolol Tartrate (Lopressor) 25 mg PO BID [facility] Last Admin: 03/23/18 09:31 Dose: 25 mg Naloxone HCl (Narcan Inj) 0.4 mg IV.PUSH UNSCH PRN PRN Reason: SEE LABEL COMMENTS Ondansetron HCl (Zofran Inj) 4 mg IV.PUSH Q6H PRN PRN Reason: NAUSEA OR VOMITING Oxycodone HCl (Roxicodone) 5 mg PO Q4H PRN PRN Reason: PAIN SCALE 3 TO 5 Oxycodone HCl (Roxicodone) 10 mg PO Q4H PRN PRN Reason: PAIN SCALE 6 TO 10 Pt Own Med Azelastine Opth Drops 0 each EACH EYE BID [facility] Pramipexole Dihydrochloride (Mirapex) 0.5 mg PO HS [facility] Last Admin: 03/22/18 21:17 Dose: 0.5 mg Senna/Docusate Sodium (Kaylynn-Colace) 1 tab PO BID [facility] Last Admin: 03/23/18 09:31 Dose: 1 tab Sennosides (Senokot) 17.2 mg PO Q12H PRN PRN Reason: Moderate Constipation Temazepam (Restoril) 15 mg PO HS PRN PRN Reason: INSOMNIA <Liya Krishnamurthy - Last Filed: 03/23/18 09:35> Active Medications: Active Medications Acetaminophen (Tylenol) 650 mg PO Q6HR PRN PRN Reason: PAIN SCALE 1 TO 2 Al Hydroxide/Mg Hydroxide (Milk Of Magnesia Liq) 30 ml PO Q12H PRN PRN Reason: Mild Constipation Albuterol (Ventolin Hfa Inh) 2 puff INH Q6H PRN PRN Reason: SHORTNESS OF BREATH Alprazolam (Xanax) 0.5 mg PO BID [facility] Last Admin: 03/23/18 09:30 Dose: 0.5 mg Aspirin (Aspirin Chew) 81 mg PO DAILY [facility] Last Admin: 03/23/18 09:31 Dose: 81 mg Atorvastatin Calcium (Lipitor) 40 mg PO HS [facility] Last Admin: 03/22/18 21:14 Dose: 40 mg Bisacodyl (Dulcolax Supp) 10 mg RECTAL DAILY PRN PRN Reason: SEVERE CONSITIPATION Bupropion HCl (Wellbutrin Sr) 150 mg PO BID [facility] Last Admin: 03/23/18 09:30 Dose: 150 mg Ezetimibe (Zetia) 10 mg PO DAILY [facility] Last Admin: 03/23/18 09:30 Dose: 10 mg Enoxaparin Sodium (Lovenox Inj) 40 mg SQ Q24H [facility] Last Admin: 03/22/18 18:54 Dose: 40 mg Fentanyl (Duragesic 25 Mcg Patch.72hr) 1 patch T-DERMAL Q3D [facility] Hydromorphone HCl (Dilaudid Pf Inj) 0.5 mg IV.PUSH Q3H PRN PRN Reason: PAIN 3-5;IF UNABLE TO TAKE PO Last Admin: 03/23/18 09:32 Dose: 0.5 mg Hydromorphone HCl (Dilaudid Pf Inj) 1 mg IV.PUSH Q3H PRN PRN Reason: PAIN 6-10; IF UNABLE TO TAKE P Last Admin: 03/23/18 00:18 Dose: 1 mg Lactulose (Lactulose Liq) 30 ml PO DAILY PRN PRN Reason: SEVERE CONSITIPATION Lisinopril (Prinivil) 10 mg PO DAILY [facility] Last Admin: 03/23/18 09:31 Dose: 10 mg Metoprolol Tartrate (Lopressor) 25 mg PO BID [facility] Last Admin: 03/23/18 09:31 Dose: 25 mg Naloxone HCl (Narcan Inj) 0.4 mg IV.PUSH UNSCH PRN PRN Reason: SEE LABEL COMMENTS Ondansetron HCl (Zofran Inj) 4 mg IV.PUSH Q6H PRN PRN Reason: NAUSEA OR VOMITING Oxycodone HCl (Roxicodone) 5 mg PO Q4H PRN PRN Reason: PAIN SCALE 3 TO 5 Oxycodone HCl (Roxicodone) 10 mg PO Q4H PRN PRN Reason: PAIN SCALE 6 TO 10 Patch Removal (Remove Old Patch) 1 each T-DERMAL Q3D [facility] Pt Own Med Azelastine Opth Drops 0 each EACH EYE BID [facility] Pramipexole Dihydrochloride (Mirapex) 0.5 mg PO HS [facility] Last Admin: 03/22/18 21:17 Dose: 0.5 mg Senna/Docusate Sodium (Kaylynn-Colace) 1 tab PO BID [facility] Last Admin: 03/23/18 09:31 Dose: 1 tab Sennosides (Senokot) 17.2 mg PO Q12H PRN PRN Reason: Moderate Constipation Temazepam (Restoril) 15 mg PO HS PRN PRN Reason: INSOMNIA <Fitz Kiran - Last Filed: 03/23/18 17:03> Allergies Allergy/AdvReac Type Severity Reaction Status Date / Time zolpidem Allergy Intermediate Hallucinati Verified 03/22/18 13:23 ons Home Medications Medication Instructions Recorded Confirmed Type alprazolam 0.5 mg PO BID 03/15/18 03/22/18 History fluorometholone acetate 1 drp OPHTHALMIC (EYE) TID 03/15/18 03/22/18 History albuterol sulfate [Ventolin HFA] 2 puff INHALATION Q6H PRN 03/18/18 03/22/18 History alendronate 70 mg PO QWEEK 03/18/18 03/22/18 History aspirin 81 mg PO DAILY 03/18/18 03/22/18 History atorvastatin 40 mg PO HS 03/18/18 03/22/18 History azelastine 1 drp OPHTHALMIC (EYE) BID 03/18/18 03/22/18 History bupropion HCl 150 mg PO BID 03/18/18 03/22/18 History calcium carbonate-vitamin D3 1 tab PO BID 03/18/18 03/22/18 History [Caltrate with Vitamin D3] cholecalciferol (vitamin D3) 5,000 unit PO DAILY 03/18/18 03/22/18 History [Vitamin D3] clopidogrel [Plavix] 75 mg PO DAILY 03/18/18 03/22/18 History fluticasone [Flovent HFA] 2 puff INHALATION BID 03/18/18 03/22/18 History tretinoin 1 applic TOPICAL QPM 03/18/18 03/22/18 History lisinopril 20 mg PO DAILY 03/20/18 03/22/18 History metoprolol tartrate 25 mg PO BID 03/20/18 03/22/18 History pramipexole 4 tab PO HS 03/20/18 03/22/18 History Exam Vital signs: Vital Signs 03/22/18 13:33 03/22/18 17:20 03/22/18 18:00 Temperature 98.5 F 97.9 F Pulse Rate 75 71 89 Respiratory Rate 20 20 16 Blood Pressure 146/57 H 123/63 129/60 Pulse Oximetry 92 L 97 94 L 03/22/18 20:00 03/23/18 00:00 03/23/18 01:25 Temperature 97.9 F 98.0 F Pulse Rate 86 63 Respiratory Rate 18 18 18 Blood Pressure 125/60 107/53 L Pulse Oximetry 96 94 L 03/23/18 04:00 03/23/18 08:00 Temperature 98.1 F 98.3 F Pulse Rate 68 66 Respiratory Rate 16 17 Blood Pressure 101/49 L 115/56 L Pulse Oximetry 95 96 Intake & Output 03/22/18 03/23/18 03/23/18 18:59 06:59 18:59 Intake Total 480 / 480 Balance 480 / 480 Weight 61.235 kg 61.2 kg Intake: Oral 480 / 480 Other: # Voids 1 Date of Last Bowel Movement 03/21/18 03/22/19 Weight On Admission 61.235 kg - Constitutional no acute distress - Routine HEENT Exam Head: Present: normocephalic, atraumatic - Routine Respiratory Exam Absent: accessory muscle use - Routine Cardiovascular Exam Present: RRR - Routine Abdominal Exam Present: soft, normoactive bowel sounds, tenderness (RUQ tenderness ). Absent: distended - Routine Skin Exam Present: dry, warm - Routine Neurological Exam Present: alert, oriented X3 <Toni Krishnamurthysey - Last Filed: 03/23/18 09:35> Vital signs: Vital Signs 03/22/18 17:20 03/22/18 18:00 03/22/18 20:00 Temperature 97.9 F 97.9 F Pulse Rate 71 89 86 Respiratory Rate 20 16 18 Blood Pressure 123/63 129/60 125/60 Pulse Oximetry 97 94 L 96 03/23/18 00:00 03/23/18 01:25 03/23/18 04:00 Temperature 98.0 F 98.1 F Pulse Rate 63 68 Respiratory Rate 18 18 16 Blood Pressure 107/53 L 101/49 L Pulse Oximetry 94 L 95 03/23/18 08:00 03/23/18 15:14 Temperature 98.3 F 97.8 F Pulse Rate 66 74 Respiratory Rate 17 18 Blood Pressure 115/56 L 130/61 Pulse Oximetry 96 99 Intake & Output 03/22/18 03/23/18 03/23/18 18:59 06:59 18:59 Intake Total 480 / 480 Balance 480 / 480 Weight 61.235 kg 61.2 kg Intake: Oral 480 / 480 Other: # Voids 1 Date of Last Bowel Movement 03/21/18 03/22/19 Weight On Admission 61.235 kg <Fitz Kiran - Last Filed: 03/23/18 17:03> Results - Labs CBC & Chem 7: 03/23/18 05:19 03/23/18 05:19 Labs: Laboratory Results - last 24 hr 03/22/18 03/22/18 03/23/18 21:26 21:26 05:19 WBC 11.2 H 9.2 RBC 2.53 L 2.25 L Hgb 8.7 L 8.1 L Hct 25.9 L 22.7 L MCV 102.1 H 100.9 H MCH 34.5 H 35.9 H MCHC 33.8 35.6 RDW 15.0 15.0 Plt Count 254 220 MPV 9.3 9.0 Neut % (Auto) 74.6 H 66.0 Lymph % (Auto) 17.5 22.2 Day % (Auto) 7.1 10.1 H Eos % (Auto) 0.4 1.2 Baso % (Auto) 0.4 0.5 Neut # (Auto) 8.4 H 6.1 Lymph # (Auto) 2.0 2.0 Day # (Auto) 0.8 0.9 Eos # (Auto) 0.0 0.1 Baso # (Auto) 0.0 0.0 WBC Differential . . Differential Comment Auto diff final Auto diff final Sodium 132 L Potassium 4.1 Chloride 98 Carbon Dioxide 22.4 Anion Gap 12 BUN 19 H Creatinine 0.85 Estimated GFR 66 L Random Glucose 111 H Calcium 8.6 Total Bilirubin 2.4 H AST 41 H ALT 101 H Alkaline Phosphatase 380 H Total Protein 7.0 D Albumin 3.4 Tumor Marker AFP Carcinoembryonic Ag CA 19-9 Antigen 03/23/18 03/23/18 05:19 05:19 WBC RBC Hgb Hct MCV MCH MCHC RDW Plt Count MPV Neut % (Auto) Lymph % (Auto) Day % (Auto) Eos % (Auto) Baso % (Auto) Neut # (Auto) Lymph # (Auto) Day # (Auto) Eos # (Auto) Baso # (Auto) WBC Differential Differential Comment Sodium 132 L Potassium 3.9 Chloride 98 Carbon Dioxide 21.3 Anion Gap 13 BUN 22 H Creatinine 1.02 H Estimated GFR 53 L Random Glucose 86 Calcium 8.6 Total Bilirubin 2.4 H AST 38 H ALT 88 H Alkaline Phosphatase 372 H Total Protein 6.8 Albumin 3.1 L Tumor Marker AFP 3.0 Carcinoembryonic Ag 2.8 CA 19-9 Antigen 11.3 - Imaging Impressions Abdomen/Pelvis CT 03/22/18 00:00 CONCLUSION: 1. There is a small amount of free air in right upper quadrant, not significant changed. <Liya Krishnamurthy - Last Filed: 03/23/18 09:35> - Labs CBC & Chem 7: 03/23/18 05:19 03/23/18 05:19 Labs: Laboratory Results - last 24 hr 03/22/18 03/22/18 03/23/18 21:26 21:26 05:19 WBC 11.2 H 9.2 RBC 2.53 L 2.25 L Hgb 8.7 L 8.1 L Hct 25.9 L 22.7 L MCV 102.1 H 100.9 H MCH 34.5 H 35.9 H MCHC 33.8 35.6 RDW 15.0 15.0 Plt Count 254 220 MPV 9.3 9.0 Neut % (Auto) 74.6 H 66.0 Lymph % (Auto) 17.5 22.2 Day % (Auto) 7.1 10.1 H Eos % (Auto) 0.4 1.2 Baso % (Auto) 0.4 0.5 Neut # (Auto) 8.4 H 6.1 Lymph # (Auto) 2.0 2.0 Day # (Auto) 0.8 0.9 Eos # (Auto) 0.0 0.1 Baso # (Auto) 0.0 0.0 WBC Differential . . Differential Comment Auto diff final Auto diff final Sodium 132 L Potassium 4.1 Chloride 98 Carbon Dioxide 22.4 Anion Gap 12 BUN 19 H Creatinine 0.85 Estimated GFR 66 L Random Glucose 111 H Calcium 8.6 Total Bilirubin 2.4 H AST 41 H ALT 101 H Alkaline Phosphatase 380 H Total Protein 7.0 D Albumin 3.4 Tumor Marker AFP Carcinoembryonic Ag CA 19-9 Antigen 03/23/18 03/23/18 05:19 05:19 WBC RBC Hgb Hct MCV MCH MCHC RDW Plt Count MPV Neut % (Auto) Lymph % (Auto) Day % (Auto) Eos % (Auto) Baso % (Auto) Neut # (Auto) Lymph # (Auto) Day # (Auto) Eos # (Auto) Baso # (Auto) WBC Differential Differential Comment Sodium 132 L Potassium 3.9 Chloride 98 Carbon Dioxide 21.3 Anion Gap 13 BUN 22 H Creatinine 1.02 H Estimated GFR 53 L Random Glucose 86 Calcium 8.6 Total Bilirubin 2.4 H AST 38 H ALT 88 H Alkaline Phosphatase 372 H Total Protein 6.8 Albumin 3.1 L Tumor Marker AFP 3.0 Carcinoembryonic Ag 2.8 CA 19-9 Antigen 11.3 - Imaging Impressions Cholangiopancreatography MRI 03/23/18 00:00 CONCLUSION: Obstructing process involving the bile ducts at the hepatic hilum without discrete mass identified, 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 <Fitz Kiran - Last Filed: 03/23/18 17:03> Assessment and Plan - Plan Assessment: - Elevated LFTs- S/P ERCP which was unsuccessful S/P internal/external biliary drain with biopsy of biliary stricture concerning for Klatskin's tumor- biopsy nondiagnostic for malignancy This is a 72 yo F known to our service, pt was initially seen by our service on March 15, underwent ERCP for evaluation of elevated LFTs found by PCP incidentally in routine lab work. The bile duct and pancreatic duct could not be cannulated, pt had sphincterotomy but procedure was terminated and etiology for biliary obstruction remained unclear. Pt was admitted to the hospital for observation and IR consulted for PTC placement and biopsy of biliary stricture. Procedure could not be done until March 18 due to patients Plavix that she is on for a stent in her leg. 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 Pa also noted that a separate left lobe drainage may need to be accomplished in the future if pt has persistent symptoms. Biopsy was done which was not definitive of malignancy. Tumor markers, CA 19-9 and AFP are WNL. Of note, LFTs are markedly improved since prior to PTC placement. Seen in ER on Wednesday with complaints of continued pain to PTC site, she was seen by Dr. Pringle who noted no evidence of infection and that pt would be stable to be discharged with GI follow up in ten days. Pt presented back to the ER last night with complaints of continued RUQ abdominal pain to PTC site. Pt denies any worsening of the pain, states it has been constant since the procedure. Has a prescription for Hydrocodone 10mg which she states has not helped the pain at all. Reports some nausea, denies any emesis. Pt has not had any drainage from her PTC since yesterday. Oncology is following. Of note, reports her grandmother had history of pancreatic cancer. CT abdomen and pelvis W IV contrast (03/22) There is a small amount of free air in right upper quadrant, not significant changed. Plan: Oncology following MRCP pending Monitor PTC output LFTs have trended down Monitor LFTs ? IR consult pending MRCP results- procedure note recommended possible need for "separate left lobe drainage may need to be accomplished in the future if pt has persistent symptoms" Pain control Antiemetics PRN Further recommendations to follow Pt has been seen and examined by myself and Dr. Kiran and this note is written on his behalf <Liya Krishnamurthy - Last Filed: 03/23/18 09:35> - Plan Seen and examined with JUNIOR STAFF ACCOUNTANT, MRCP reviewed. PTC and biopsy and internalization of stent planned by Dr Pa tomorrow. Discussed with Dr. Pa and Sarah. Thank you The exam, history, and the medical decision-making described in the above note were completed with the assistance of the mid-level provider. I reviewed and agree with the findings presented. I attest that I had a [id number] encounter with the patient on the same day, and personally performed and documented my assessment and findings in the medical record. <Fitz Kiran - Last Filed: 03/23/18 17:03>
[2018-03-23] MEDS ORDERED: Gadobutrol PF 2 MMOL/2 ML Vial (for RAD) IV.SIG ONE (12:19)
--- NOTE | 2018-03-23 13:15 | MR ---
EXAM DATE: 03/23/2018 12:22 PM EDT AGE/SEX: 72 years / Female INDICATIONS: Jaundice. Mass. CLINICAL DATA: This is the patient's subsequent encounter. Patient reports that signs and symptoms h ave been present for 2 days and indicates a pain score of 3/10. MEDICAL/SURGICAL HISTORY: Hypertension. . Leg stent. Breast augmentation. Rhinoplasty. Exter nal bilary drain. COMPARISON: No prior exams available for comparison. TECHNIQUE: Multisequence, multiplanar MRI examination was performed without contrast and after the in travenous administration of 6 ml Gadavist (gadobutrol) contrast as a single exam dose. FINDINGS: Examination reveals prominent intrahepatic biliary ductal dilatation involving the left-sided bile du cts. The right lobe ducts are decompressed with biliary drainage catheter in place. The cholangiograp hic appearance is that of a hilar obstructing process without discrete associated mass consistent wit h Klatskin's cholangiocarcinoma. There is no focal liver mass present. The spleen, pancreas, adrenals and kidneys are benign in appearance. Incidental tiny upper pole left renal cyst. There is no evidence of regional adenopathy. Bowel structures are normal in caliber and a ppearance. There is mild atelectasis in the lung bases and minimal pleural fluid on the right. The bony elements are benign. 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 Electronically signed by: Kamaljit Pa MD 03/23/2018 1:14 PM EDT
--- NOTE | 2018-03-23 13:44 | P.PNIM ---
Subjective Interval history: pain controlled with IV dilaudid. Pt is tolerating PO intake. Pt denies n/v/d. Physical Exam Vital signs: 03/23/18 08:00 Temperature 98.3 F Pulse Rate 66 Respiratory Rate 17 Blood Pressure 115/56 L Pulse Oximetry 96 Narrative: GENERAL: This is a well-nourished, well-developed patient, in no apparent distress. CARDIOVASCULAR: Regular rate and rhythm without murmurs, gallops, or rubs. RESPIRATORY: Clear to auscultation. Breath sounds equal bilaterally. No wheezes , rales, or rhonchi. GASTROINTESTINAL: Abdomen soft, non-tender, nondistended. Normal active bowel sounds MUSCULOSKELETAL: Extremities without clubbing, cyanosis, or edema. NEURO: Alert & Oriented x4 to person, place, time, situation. Moves all ext x4 Results - Labs CBC & Chem 7: 03/23/18 05:19 03/23/18 05:19 - Imaging Impressions Abdomen/Pelvis CT 03/22/18 00:00 CONCLUSION: 1. There is a small amount of free air in right upper quadrant, not significant changed. 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 Assessment and Plan - Assessment (1) Intractable right upper quadrant abdominal pain Code(s): R10.11 - Right upper quadrant pain Status: Acute Plan: - A pleasant 72 yo female who is being admitted for intractable right upper quadrant abdominal pain. 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 - Biopsies were taken AND RETURNED TODAY SHOWING GLANDULAR TISSUE WITH CRUSH ARTIFACT AND NO DEFINITIVE MALIGNANCY IDENTIFIED. - Pt returned to the ED at [facility] [place] on 03/20/18 secondary to the increased pain and nausea, with noted improvement in labs - TBili had decreased from 6.6 to 3.1, AST from 233 to 83, ALT from 357 to 207, and AlkPhos from 706 to 579. - Pt had a CT Abd/pelvis in the ED on 03/20 which revealed interval development of pneumoperitoneum in the right upper abdominal quadrant with air tracking into the enrique hepatis and along the medial aspect of the right hepatic lobe, hepatic biliary drainage catheter enters the right ducts with the cope loop appropriately positioned in the second portion of the duodenum, persistent dilation of the left hepatic ducts, and bibasilar atelectatic changes, right greater than left. - Pt returned to [facility] 03/22 for internalization of the drain - Pt with marked pain & inpatient hospitalization was requested for pain mgmt and further w/u of likely Klatskin's tumor - pain improved with IV dilaudid - start Duragesic Transdermal 25mcg (03/23) - appreciate input from Oncology, GI, and IR - await biomarkers - Case d/w IR, Dr. Pa (03/23) - Previous pathology was non-diagnostic - Pt to under go repeat Bx via cholangiogram (03/23) - Will then try to convert external drain to internal drain in 2-3 days - lovenox for DVT prophylaixs - supportive care HTN - stable - metoprolol COPD - duonebs prn PVD - hold plavix (2) Pneumoperitoneum Code(s): K66.8 - Other specified disorders of peritoneum Status: Acute (3) Mass of bile duct Code(s): K83.8 - Other specified diseases of biliary tract Status: Acute
--- NOTE | 2018-03-23 16:55 | P.PNONC ---
Subjective Interval history: Patient lying in bed, wipes away tears upon my approach. She states that she was just given the terrible news about the results of her ERCP. We have had a long discussion in regards to this. 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 She does have supportive siblings. She has been tolerating food and she wishes to eat now. Objective Vital Signs/Intake & Output: Vital Signs 03/22/18 17:20 03/22/18 18:00 03/22/18 20:00 Temperature 97.9 F 97.9 F Pulse Rate 71 89 86 Respiratory Rate 20 16 18 Blood Pressure 123/63 129/60 125/60 Pulse Oximetry 97 94 L 96 03/23/18 00:00 03/23/18 01:25 03/23/18 04:00 Temperature 98.0 F 98.1 F Pulse Rate 63 68 Respiratory Rate 18 18 16 Blood Pressure 107/53 L 101/49 L Pulse Oximetry 94 L 95 03/23/18 08:00 03/23/18 15:14 Temperature 98.3 F 97.8 F Pulse Rate 66 74 Respiratory Rate 17 18 Blood Pressure 115/56 L 130/61 Pulse Oximetry 96 99 Intake & Output 03/22/18 03/23/18 03/23/18 18:59 06:59 18:59 Intake Total 480 / 480 Balance 480 / 480 Weight 61.235 kg 61.2 kg Intake: Oral 480 / 480 Other: # Voids 1 Date of Last Bowel Movement 03/21/18 03/22/19 Weight On Admission 61.235 kg Result Diagrams: 03/23/18 05:19 03/23/18 05:19 Laboratory Results: Laboratory Results - last 24 hr 03/22/18 03/22/18 03/23/18 21:26 21:26 05:19 WBC 11.2 H 9.2 RBC 2.53 L 2.25 L Hgb 8.7 L 8.1 L Hct 25.9 L 22.7 L MCV 102.1 H 100.9 H MCH 34.5 H 35.9 H MCHC 33.8 35.6 RDW 15.0 15.0 Plt Count 254 220 MPV 9.3 9.0 Neut % (Auto) 74.6 H 66.0 Lymph % (Auto) 17.5 22.2 Coffee % (Auto) 7.1 10.1 H Eos % (Auto) 0.4 1.2 Baso % (Auto) 0.4 0.5 Neut # (Auto) 8.4 H 6.1 Lymph # (Auto) 2.0 2.0 Coffee # (Auto) 0.8 0.9 Eos # (Auto) 0.0 0.1 Baso # (Auto) 0.0 0.0 WBC Differential . . Differential Comment Auto diff final Auto diff final Sodium 132 L Potassium 4.1 Chloride 98 Carbon Dioxide 22.4 Anion Gap 12 BUN 19 H Creatinine 0.85 Estimated GFR 66 L Random Glucose 111 H Calcium 8.6 Total Bilirubin 2.4 H AST 41 H ALT 101 H Alkaline Phosphatase 380 H Total Protein 7.0 D Albumin 3.4 Tumor Marker AFP Carcinoembryonic Ag CA 19-9 Antigen 03/23/18 03/23/18 05:19 05:19 WBC RBC Hgb Hct MCV MCH MCHC RDW Plt Count MPV Neut % (Auto) Lymph % (Auto) Coffee % (Auto) Eos % (Auto) Baso % (Auto) Neut # (Auto) Lymph # (Auto) Coffee # (Auto) Eos # (Auto) Baso # (Auto) WBC Differential Differential Comment Sodium 132 L Potassium 3.9 Chloride 98 Carbon Dioxide 21.3 Anion Gap 13 BUN 22 H Creatinine 1.02 H Estimated GFR 53 L Random Glucose 86 Calcium 8.6 Total Bilirubin 2.4 H AST 38 H ALT 88 H Alkaline Phosphatase 372 H Total Protein 6.8 Albumin 3.1 L Tumor Marker AFP 3.0 Carcinoembryonic Ag 2.8 CA 19-9 Antigen 11.3 Imaging Studies: Impressions Cholangiopancreatography MRI 03/23/18 00:00 CONCLUSION: Obstructing process involving the bile ducts at the hepatic hilum without discrete mass identified, 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 Medications: Active Medications Generic Name Dose Route Start Last Admin Trade Name Freq PRN Reason Stop Dose Admin Alprazolam 0.5 mg 03/22/18 21:00 03/23/18 09:30 Xanax PO 0.5 mg BID ALESSANDRO Administration Aspirin 81 mg 03/23/18 09:00 03/23/18 09:31 Aspirin Chew PO 81 mg DAILY ALESSANDRO Administration Atorvastatin Calcium 40 mg 03/22/18 21:00 03/22/18 21:14 Lipitor PO 40 mg HS ALESSANDRO Administration Bupropion HCl 150 mg 03/22/18 21:00 03/23/18 09:30 Wellbutrin Sr PO 150 mg BID ALESSANDRO Administration Ezetimibe 10 mg 03/23/18 09:00 03/23/18 09:30 Zetia PO 10 mg DAILY ALESSANDRO Administration Enoxaparin Sodium 40 mg 03/22/18 18:00 03/22/18 18:54 Lovenox Inj SQ 40 mg Q24H ALESSANDRO Administration Hydromorphone HCl 0.5 mg 03/22/18 18:15 03/23/18 09:32 Dilaudid Pf Inj IV.PUSH 0.5 mg Q3H PRN Administration PAIN 3-5;IF UNABLE TO TAKE PO Hydromorphone HCl 1 mg 03/22/18 18:15 03/23/18 00:18 Dilaudid Pf Inj IV.PUSH 1 mg Q3H PRN Administration PAIN 6-10; IF UNABLE TO TAKE P Lisinopril 10 mg 03/23/18 09:00 03/23/18 09:31 Prinivil PO 10 mg DAILY ALESSANDRO Administration Metoprolol Tartrate 25 mg 03/22/18 21:00 03/23/18 09:31 Lopressor PO 25 mg BID ALESSANDRO Administration Pramipexole Dihydrochloride 0.5 mg 03/22/18 21:00 03/22/18 21:17 Mirapex PO 0.5 mg HS ALESSANDRO Administration Senna/Docusate Sodium 1 tab 03/22/18 21:00 03/23/18 09:31 Kaylynn-Colace PO 1 tab BID ALESSANDRO Administration Objective Remarks: GENERAL: Well-nourished, well-developed female patient, sitting in bed, in no acute distress. SKIN: Warm and dry. HEAD: Normocephalic. EYES: No scleral icterus. No injection or drainage. NECK: Supple, trachea midline. CARDIOVASCULAR: Regular rate and rhythm without murmurs. RESPIRATORY: Breath sounds clear, equal bilaterally. No accessory muscle use. GASTROINTESTINAL: Abdomen soft, non-tender, distended. hepatic drain to RUQ, drsg dry/intact-no fluid noted in drainage system. EXTREMITIES: No cyanosis, or edema. MUSCULOSKELETAL: Adequate muscle tone. NEUROLOGICAL: No obvious focal deficit. Awake, alert, and oriented x3. PSYCHIATRIC: Appropriate mood and affect; insight and judgment normal. Assessment/Plan - Plan This is a pleasant 72-year-old female patient, who underwent ERCP on 03/15/2018 which was unsuccessful to cannulate the bile and pancreatic duct. She had a sphincterectomy, bile duct was still not able to be localized, she then had a percutaneous biliary drain with stent placement on 03/18/2018 by IR they noted obstruction consistent with a Klatskin tumor. Biopsies and no definitive malignancy identified. This admission the patient return to the emergency department with increasing abdominal pain, repeat CT scan showed interval development of pneumoperitoneum in the right upper abdomen with air tracking into the enrique hepatis along the medial aspect of the right hepatic lobe. Plan: 1. ERCP done today revealed prominent intrahepatic biliary ductal dilation involving the left sided bile ducts. Right lobe ducts are decompressed with biliary drainage catheter in place. The cholangiographic appearance is that of a hilar obstructing process without discrete associated mass consistent with Klatskin's cholangiocarcinoma. No focal liver mass present. 2. Bilirubin has stabilized. 3. Continue supportive care. The patient will further discuss with Dr. Wagner and we will establish a treatment plan. - Attending Statement The exam, history, and the medical decision-making described in the above note were completed with the assistance of the mid-level provider. I reviewed and agree with the findings presented. I attest that I had a [id number] encounter with the patient on the same day, and personally performed and documented my assessment and findings in the medical record. 72 yoF with imaging studies that support diagnosis of Klatskin tumor. 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 Long discussion with patient today. She reports that she is uncertain if she would like to pursue aggressive treatment of her disease. Will await biopsy. Will consult surgery team will obtain CT scan of chest without contrast. Will also consult palliative care team.
[2018-03-23] MEDS: Enoxaparin Inj 40 MG/0.4 ML Syringe SQ SCH (19:16)
--- NOTE | 2018-03-23 20:03 | CT ---
EXAM DATE: 03/23/2018 7:53 PM EDT AGE/SEX: 72 years / Female INDICATIONS: Chest pain. CLINICAL DATA: This is the patient's initial encounter. Patient reports that signs and symptoms have been present for 1 day and indicates a pain score of 5/10. MEDICAL/SURGICAL HISTORY: Chronic obstructive pulmonary disease. Cardiovascular disease. None. RADIATION DOSE: 5.16 CTDI (mGy) COMPARISON: [facility], CT ABDOMEN & PELVIS W CONTRAST, 03/22/2018. [facility], CT CHEST W/ CONTRAST, 4. PCI, CT CHEST W/O CONTRAST, 07/31/2015. PCI, CT CHEST W/O CONTRAST, 12/14/2017. . TECHNIQUE: Multiple contiguous axial images were obtained through the chest without contrast. Image s were obtained in suspended respiration using multiple row detector helical technique. Using automa rony exposure control and adjustment of the mA and/or kV according to patient size, radiation dose was kept as low as reasonably achievable to obtain optimal diagnostic quality images. DICOM format imag e data is available electronically for review and comparison. FINDINGS: Lungs: There is mild emphysematous change. There is increased density at the posterior inferior righ t lower lobe. There is a focal 0.7 cm nodule with an eccentric calcification seen in the right lower lobe. This was present on a prior study from 2013. It previously measured 0.6 cm. Mediastinum: There is good visualization of the great vessels of the middle mediastinum. No evidenc e of mediastinal or hilar adenopathy/mass. Coronary artery calcifications are present. There is a mil d amount of pericardial fluid present. Pleurae: No evidence of focal thickening or pleural effusion. Axillae: Unremarkable. Bony Structures: Unremarkable. Miscellaneous: The examination was extended to include the upper abdomen, and both adrenal glands ar e normal in size and configuration. There is an external biliary stent seen extending into the common bile duct. There is some small foci of air seen adjacent to the right lateral aspect of the IVC and in the right superior posterior right retroperitoneal space. The air has significantly decreased sinc e the prior CT examination. Bilateral breast implants are present. CONCLUSION: 1. Right lower lobe consolidation or atelectasis. 2. 0.7 cm nodule seen in the right lower lobe. This was present in 2013. 3. Mild emphysematous change. 4. External biliary stent in place. Electronically signed by: Kamaljit Salinas MD 03/23/2018 8:01 PM EDT
[2018-03-24] MEDS: HYDROmorphone PF Inj 2 MG/ML Vial IV.PUSH PRN ×5 (02:35→22:36)
[2018-03-24] MEDS ORDERED: Chlorhexidine Gluconate 2% 1 Pack (2 Cloths) TOPICAL SCH (05:30)
[2018-03-24] MEDS ORDERED: Sodium Chlor 0.9% Inj 500 ML IV.SIG SCH (06:00)
[2018-03-24] MEDS: Senna/Docusate Sodium 8.6/50 MG Tablet PO SCH ×2 (08:47→22:35)
[2018-03-24] MEDS: buPROPion 150 MG 12 HR Tablet PO SCH ×2 (08:47→22:35)
[2018-03-24] MEDS: Lisinopril 10 MG Tablet PO SCH (08:47)
[2018-03-24] MEDS: Metoprolol Tartrate 25 MG Tablet PO SCH ×2 (08:47→22:35)
[2018-03-24] MEDS: ALPRAZolam 0.5 MG Tablet PO SCH ×2 (08:47→22:38)
[2018-03-24] MEDS: Ezetimibe 10 MG Tablet PO SCH (08:48)
[2018-03-24] MEDS ORDERED: fentaNYL Citrate Inj 250 MCG/5 ML Ampul ONE (09:20)
[2018-03-24] MEDS ORDERED: fentaNYL Citrate Inj 100 MCG/2 ML Ampul ONE (10:19)
[2018-03-24] MEDS ORDERED: Iohexol 350 MG/ML 50 ML Vial (for Rad Diag) IVCONTRAST ONE (11:26)
[2018-03-24] MEDS ORDERED: Labetalol HCl Inj 100 MG/20 ML Vial ONE (11:50)
[2018-03-24] MEDS ORDERED: HYDROmorphone PF Inj 2 MG/ML Vial IV.PUSH PRN (12:01)
[2018-03-24] MEDS ORDERED: Labetalol HCl Inj 100 MG/20 ML Vial IV.PUSH PRN (12:03)
[2018-03-24] MEDS ORDERED: Levofloxacin 500 mg Premix Inj 500 MG/100 ML PIGGYBACK IV.SIG ONE (12:12)
[2018-03-24] MEDS: levoFLOXacin 500 MG Tablet PO SCH (13:34)
--- NOTE | 2018-03-24 13:48 | P.PNGI ---
Subjective Interval history: Pt just returned from IR. Reports pain is extreme, RN at bedside giving her pain medication. <Liya Krishnamurthy - Last Filed: 03/24/18 13:43> Physical Exam Vital signs: Vital Signs 03/23/18 15:14 03/23/18 20:00 03/24/18 00:00 Temperature 97.8 F 98.8 F 97.7 F Pulse Rate 74 82 58 L Respiratory Rate 18 18 17 Blood Pressure 130/61 132/63 110/51 L Pulse Oximetry 99 98 96 03/24/18 01:30 03/24/18 04:00 03/24/18 07:15 Temperature 97.4 F L 97.8 F Pulse Rate 62 63 Respiratory Rate 17 18 17 Blood Pressure 108/49 L 115/55 L Pulse Oximetry 98 95 03/24/18 11:05 03/24/18 11:20 03/24/18 11:35 Temperature 97.7 F Pulse Rate 73 76 82 Respiratory Rate 16 16 Blood Pressure 214/87 H 203/83 H 196/84 H Pulse Oximetry 98 96 96 Intake & Output 03/23/18 03/24/18 03/24/18 18:59 06:59 18:59 Intake Total 600 / 600 Balance 600 / 600 Intake: Oral 600 / 600 Other: # Voids 2 3 Date of Last Bowel Movement 03/22/19 03/22/19 03/22/18 - Constitutional no acute distress - Routine HEENT Exam Head: Present: normocephalic, atraumatic - Routine Respiratory Exam Absent: accessory muscle use - Routine Abdominal Exam Present: soft, normoactive bowel sounds, tenderness. Absent: distended - Routine Skin Exam Present: dry, warm - Routine Neurological Exam Present: alert, oriented X3 <Liya Krishnamurthy - Last Filed: 03/24/18 13:43> Vital signs: Vital Signs 03/23/18 20:00 03/24/18 00:00 03/24/18 01:30 Temperature 98.8 F 97.7 F Pulse Rate 82 58 L Respiratory Rate 18 17 17 Blood Pressure 132/63 110/51 L Pulse Oximetry 98 96 03/24/18 04:00 03/24/18 07:15 03/24/18 11:05 Temperature 97.4 F L 97.8 F 97.7 F Pulse Rate 62 63 73 Respiratory Rate 18 17 16 Blood Pressure 108/49 L 115/55 L 214/87 H Pulse Oximetry 98 95 98 03/24/18 11:20 03/24/18 11:35 03/24/18 11:50 Temperature Pulse Rate 76 82 78 Respiratory Rate 16 16 Blood Pressure 203/83 H 196/84 H 172/74 H Pulse Oximetry 96 96 03/24/18 12:20 Temperature Pulse Rate 71 Respiratory Rate 16 Blood Pressure 161/62 H Pulse Oximetry Intake & Output 03/23/18 03/24/18 03/24/18 18:59 06:59 18:59 Intake Total 600 / 600 Balance 600 / 600 Intake: Oral 600 / 600 Other: # Voids 2 3 Date of Last Bowel Movement 03/22/19 03/22/19 03/22/18 <Fitz Kiran - Last Filed: 03/24/18 16:30> Results - Labs CBC & Chem 7: 03/23/18 05:19 03/23/18 05:19 - Imaging Impressions Chest CT 03/23/18 00:00 CONCLUSION: 1. Right lower lobe consolidation or atelectasis. 2. 0.7 cm nodule seen in the right lower lobe. This was present in 2013. 3. Mild emphysematous change. 4. External biliary stent in place. <Liya Krishnamurthy - Last Filed: 03/24/18 13:43> - Labs CBC & Chem 7: 03/23/18 05:19 03/23/18 05:19 - Imaging Impressions Chest CT 03/23/18 00:00 CONCLUSION: 1. Right lower lobe consolidation or atelectasis. 2. 0.7 cm nodule seen in the right lower lobe. This was present in 2013. 3. Mild emphysematous change. 4. External biliary stent in place. Biliary Drain Exchange 03/24/18 00:00 CONCLUSION: 1. I was unable to accomplish repeat biopsy in this patient for reasons described above. 2. Cholangiography reveals no change in the appearance of hilar bile duct obstruction 3. The biliary drainage catheter was exchanged and upsized to 10 [place]olan internal/external. <Fitz Kiran - Last Filed: 03/24/18 16:30> Assessment and Plan - Plan Assessment: - Elevated LFTs- S/P ERCP which was unsuccessful S/P internal/external biliary drain with biopsy of biliary stricture concerning for Klatskin's tumor- biopsy nondiagnostic for malignancy This is a 72 yo F known to our service, pt was initially seen by our service on March 15, underwent ERCP for evaluation of elevated LFTs found by PCP incidentally in routine lab work. The bile duct and pancreatic duct could not be cannulated, pt had sphincterotomy but procedure was terminated and etiology for biliary obstruction remained unclear. Pt was admitted to the hospital for observation and IR consulted for PTC placement and biopsy of biliary stricture. Procedure could not be done until March 18 due to patients Plavix that she is on for a stent in her leg. 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 Pa also noted that a separate left lobe drainage may need to be accomplished in the future if pt has persistent symptoms. Biopsy was done which was not definitive of malignancy. Tumor markers, CA 19-9 and AFP are WNL. Of note, LFTs are markedly improved since prior to PTC placement. Seen in ER on Wednesday with complaints of continued pain to PTC site, she was seen by Dr. Pringle who noted no evidence of infection and that pt would be stable to be discharged with GI follow up in ten days. Pt presented back to the ER last night with complaints of continued RUQ abdominal pain to PTC site. Pt denies any worsening of the pain, states it has been constant since the procedure. Has a prescription for Hydrocodone 10mg which she states has not helped the pain at all. Reports some nausea, denies any emesis. Pt has not had any drainage from her PTC since yesterday. Oncology is following. Of note, reports her grandmother had history of pancreatic cancer. CT abdomen and pelvis W IV contrast (03/22) There is a small amount of free air in right upper quadrant, not significant changed. (03/24) Pt back from IR for biliary drain exchange, unable to reach area for biopsy. Plan for ERCP tomorrow for internalization of stent and biopsy. Biliary drain currently with 20 cc of bile colored/ bloody drainage. Plan: ERCP tomorrow Consent already obtained NPO after [facility] Oncology following Monitor biliary drain output Monitor LFTs Pain control Antiemetics PRN Further recommendations to follow Pt has been seen and examined by myself and Dr. Kiran and this note is written on his behalf <Liya Krishnamurthy - Last Filed: 03/24/18 13:43> - Plan Seen and examined with DIRECTOR OF PEOPLE, ERCP/stent /biopsy planned for tomorrow. Discussed with Antonio Smith/Thierno. The exam, history, and the medical decision-making described in the above note were completed with the assistance of the mid-level provider. I reviewed and agree with the findings presented. I attest that I had a [id number] encounter with the patient on the same day, and personally performed and documented my assessment and findings in the medical record. <Fitz Kiran - Last Filed: 03/24/18 16:30>
--- NOTE | 2018-03-24 14:19 | P.PNONC ---
Subjective Interval history: Afebrile Patient has just returned from specials Discussed with [facility] ARCHITECT with Dr. Chapman Did not get biopsy done today Complaining of pain in her back RN at bedside giving patient Dilaudid Objective Vital Signs/Intake & Output: Vital Signs 03/23/18 15:14 03/23/18 20:00 03/24/18 00:00 Temperature 97.8 F 98.8 F 97.7 F Pulse Rate 74 82 58 L Respiratory Rate 18 18 17 Blood Pressure 130/61 132/63 110/51 L Pulse Oximetry 99 98 96 03/24/18 01:30 03/24/18 04:00 03/24/18 07:15 Temperature 97.4 F L 97.8 F Pulse Rate 62 63 Respiratory Rate 17 18 17 Blood Pressure 108/49 L 115/55 L Pulse Oximetry 98 95 03/24/18 11:05 03/24/18 11:20 03/24/18 11:35 Temperature 97.7 F Pulse Rate 73 76 82 Respiratory Rate 16 16 Blood Pressure 214/87 H 203/83 H 196/84 H Pulse Oximetry 98 96 96 03/24/18 11:50 03/24/18 12:20 Temperature Pulse Rate 78 71 Respiratory Rate 16 16 Blood Pressure 172/74 H 161/62 H Pulse Oximetry Intake & Output 03/23/18 03/24/18 03/24/18 18:59 06:59 18:59 Intake Total 600 / 600 Balance 600 / 600 Intake: Oral 600 / 600 Other: # Voids 2 3 Date of Last Bowel Movement 03/22/19 03/22/19 03/22/18 Result Diagrams: 03/23/18 05:19 03/23/18 05:19 Imaging Studies: Impressions Chest CT 03/23/18 00:00 CONCLUSION: 1. Right lower lobe consolidation or atelectasis. 2. 0.7 cm nodule seen in the right lower lobe. This was present in 2013. 3. Mild emphysematous change. 4. External biliary stent in place. Medications: Active Medications Generic Name Dose Route Start Last Admin Trade Name Freq PRN Reason Stop Dose Admin Alprazolam 0.5 mg 03/22/18 21:00 03/24/18 08:47 Xanax PO Not Given BID [facility] Aspirin 81 mg 03/23/18 09:00 03/24/18 08:47 Aspirin Chew PO Not Given DAILY [facility] Atorvastatin Calcium 40 mg 03/22/18 21:00 03/23/18 21:06 Lipitor PO 40 mg HS [facility] Administration Bupropion HCl 150 mg 03/22/18 21:00 03/24/18 08:47 Wellbutrin Sr PO Not Given BID [facility] Ezetimibe 10 mg 03/23/18 09:00 03/24/18 08:48 Zetia PO Not Given DAILY [facility] Enoxaparin Sodium 40 mg 03/22/18 18:00 03/23/18 19:16 Lovenox Inj SQ Not Given Q24H [facility] Fentanyl 1 patch 03/23/18 15:00 03/23/18 17:17 Duragesic 25 Mcg Patch.72hr T-DERMAL 1 patch Q3D ALESSANDRO Administration Hydromorphone HCl 0.5 mg 03/22/18 18:15 03/24/18 13:33 Dilaudid Pf Inj IV.PUSH 0.5 mg Q3H PRN Administration PAIN 3-5;IF UNABLE TO TAKE PO Hydromorphone HCl 1 mg 03/22/18 18:15 03/24/18 11:21 Dilaudid Pf Inj IV.PUSH 1 mg Q3H PRN Administration PAIN 6-10; IF UNABLE TO TAKE P Hydromorphone HCl 1 mg 03/24/18 12:01 03/24/18 12:12 Dilaudid Pf Inj IV.PUSH 1 mg Q30M PRN Administration PAIN 6-10 Lactated Ringer's 1,000 mls @ 30 mls/hr 03/24/18 05:30 03/24/18 06:40 Lr 1000 Ml Inj IV.SIG 03/27/18 05:17 Not Given .Q24H [facility] Levofloxacin 500 mg 03/24/18 13:00 03/24/18 13:34 Levaquin PO 500 mg Q24H [facility] Administration Lisinopril 10 mg 03/23/18 09:00 03/24/18 08:47 Prinivil PO Not Given DAILY [facility] Metoprolol Tartrate 25 mg 03/22/18 21:00 03/24/18 08:47 Lopressor PO Not Given BID [facility] Pramipexole Dihydrochloride 0.5 mg 03/22/18 21:00 03/23/18 21:07 Mirapex PO 0.5 mg HS [facility] Administration Senna/Docusate Sodium 1 tab 03/22/18 21:00 03/24/18 08:47 Kaylynn-Colace PO Not Given BID ALESSANDRO Objective Remarks: GENERAL: Older female sitting up in bed. She appears slightly uncomfortable. She is awake and answering questions. SKIN: Warm and dry. HEAD: Normocephalic. EYES: No scleral icterus. No injection or drainage. NECK: Supple, trachea midline. CARDIOVASCULAR: Regular rate and rhythm without murmurs. RESPIRATORY: Breath sounds clear, equal bilaterally. No accessory muscle use. GASTROINTESTINAL: Abdomen soft, mildly tender, distended. Hepatic drain to RUQ. Small amount blood-tinged, bilious fluid noted in bag EXTREMITIES: No cyanosis, or edema. MUSCULOSKELETAL: Adequate muscle tone. NEUROLOGICAL: No obvious focal deficit. Awake, alert, and oriented x3. Assessment/Plan - Plan This is a pleasant 72-year-old female patient, who underwent ERCP on 03/15/2018 which was unsuccessful to cannulate the bile and pancreatic duct. She had a sphincterectomy, bile duct was still not able to be localized, she then had a percutaneous biliary drain with stent placement on 03/18/2018 by IR they noted obstruction consistent with a Klatskin tumor. Biopsies and no definitive malignancy identified. This admission the patient return to the emergency department with increasing abdominal pain, repeat CT scan showed interval development of pneumoperitoneum in the right upper abdomen with air tracking into the enrique hepatis along the medial aspect of the right hepatic lobe. Plan: 1. The patient will be going back downstairs tomorrow for stent internalization and biopsy per discussion with LARRY Nickerson with Dr Chapman. We will need biopsy prior to any treatment plan. 2. Monitor bilirubin. Continue supportive care. - Attending Statement The exam, history, and the medical decision-making described in the above note were completed with the assistance of the mid-level provider. I reviewed and agree with the findings presented. I attest that I had a [id number] encounter with the patient on the same day, and personally performed and documented my assessment and findings in the medical record. 72 yoF with Klatskin tumor biopsy results pending. Unlikely to be a surgical candidate. If chance of cure is low patient reports that she does not want to pursue extensive surgery, radiation or chemotherapy. Repeat biopsy and internalization of stent pending.
--- NOTE | 2018-03-24 14:42 | P.PNIM ---
Subjective Interval history: pain improved with dilaudid/fentanyl transdermal Physical Exam Vital signs: 03/24/18 11:50 03/24/18 12:20 Temperature Pulse Rate 78 71 Respiratory Rate 16 16 Blood Pressure 172/74 H 161/62 H Pulse Oximetry Narrative: GENERAL: This is a well-nourished, well-developed patient, in no apparent distress. CARDIOVASCULAR: Regular rate and rhythm without murmurs, gallops, or rubs. RESPIRATORY: Clear to auscultation. Breath sounds equal bilaterally. No wheezes , rales, or rhonchi. GASTROINTESTINAL: Abdomen soft, non-tender, nondistended. Normal active bowel sounds MUSCULOSKELETAL: Extremities without clubbing, cyanosis, or edema. NEURO: Alert & Oriented x4 to person, place, time, situation. Moves all ext x4 Results - Labs CBC & Chem 7: 03/25/18 05:13 03/25/18 05:13 - Imaging Abdomen/Pelvis CT 03/22/18 00:00 CONCLUSION: 1. There is a small amount of free air in right upper quadrant, not significant changed. Chest CT 03/23/18 00:00 CONCLUSION: 1. Right lower lobe consolidation or atelectasis. 2. 0.7 cm nodule seen in the right lower lobe. This was present in 2013. 3. Mild emphysematous change. 4. External biliary stent in place. 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 Assessment and Plan - Assessment (1) Intractable right upper quadrant abdominal pain Code(s): R10.11 - Right upper quadrant pain Status: Acute Plan: - A pleasant 72 yo female who is being admitted for intractable right upper quadrant abdominal pain. 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 - Biopsies were taken AND RETURNED TODAY SHOWING GLANDULAR TISSUE WITH CRUSH ARTIFACT AND NO DEFINITIVE MALIGNANCY IDENTIFIED. - Pt [place] [facility] [place] secondary to the increased pain and nausea, with noted improvement in labs - TBili had decreased from 6.6 to 3.1, AST from 233 to 83, ALT from 357 to 207, and AlkPhos from 706 to 579. - Pt had a CT Abd/pelvis in the ED on 03/20 which revealed interval development of pneumoperitoneum in the right upper abdominal quadrant with air tracking into the enrique hepatis and along the medial aspect of the right hepatic lobe, hepatic biliary drainage catheter enters the right ducts with the cope loop appropriately positioned in the second portion of the duodenum, persistent dilation of the left hepatic ducts, and bibasilar atelectatic changes, right greater than left. - Pt returned to [facility] 03/22 for internalization of the drain - Pt with marked pain & inpatient hospitalization was requested for pain mgmt and further w/u of likely Klatskin's tumor - pain improved with IV dilaudid - Duragesic Transdermal 25mcg (03/23) - appreciate input from Oncology, GI, and IR - AFP 3.0, CEA 2.8, CA 19-9 11.3 - Case d/w IR, Dr. Pa (03/23) - Pt underwent biliary stent exchange (03/24), but unable to obtain biopsy - Possible repeat ERCP (03/25) with Dr. Kiran for repeat Bx to make tissue diagnosis - Previous pathology was non-diagnostic - Will then try to convert external drain to internal drain in 2-3 days - Pt met with Palliative Medicine (03/24). Case d/w Dr. Keene (03/24) - Pt likely does NOT want chemotherapy - Pt requesting discharge ADRI - code status changed to DNR - Pt requesting hospice consult - Case d/w Oncology, Dr. Wagner - await input from Surgery, Dr. Herrera - lovenox for DVT prophylaixs - supportive care HTN - stable - metoprolol COPD - duonebs prn PVD - hold plavix (2) Pneumoperitoneum Code(s): K66.8 - Other specified disorders of peritoneum Status: Acute (3) Mass of bile duct Code(s): K83.8 - Other specified diseases of biliary tract Status: Acute
--- NOTE | 2018-03-24 15:12 | P.CONPAL ---
Consult Service: Palliative Care Requesting Physician: Isis Wagner Reason for Consult: a. To assist with evaluation and management of symptoms including: pain b. To assist medical decision maker(s) with: better understanding of current medical conditions; weighing benefits/burdens of medical treatment options; making medical treatment decisions. Primary Care Provider: Christiane Cespedes MD History of Present Illness History of Present Illness: 72-year-old female, with a past history of COPD, PVD, and back pain, developed jaundice and abdominal pain over the past few weeks, and was found to have dilated biliary ducts. She underwent ERCP on 03/15/18 but it was unsuccessful due to tumor/obstruction. A drain was placed on 03/18/18 and her transaminases and bilirubin improved. She was brought to the hospital on 03/22/18 because of uncontrolled right upper quadrant/right flank pain, and was admitted. A recent biopsy did not reveal any malignant cells, but the patient was felt to have a Klatskin's tumor/cholangiocarcinoma. At the time of admission, findings included: * Alert, moderate pain * Temp 98.5, pulse 75, respirations 20, blood pressure 146/57, oxygen saturation 92% * Sodium 132, creatinine 1.02, albumin 3.4 * ALT 88, AST 38 * CT of the chest revealed an old/stable nodule in the right lower lobe, evidence of COPD, and some right lower lobe consolidation. * CT abdomen/pelvis revealed some free air in the right upper quadrant, but no real changes from the prior scan. Patient was admitted, pain medicine was provided, and she subsequently underwent an MRCP, which was revealing obstruction but no obvious mass, and was felt to be consistent with a Klatskin's tumor. Alpha-fetoprotein and CA19-9 were within normal limits, and the CEA was 2.8. There was discussion about possibly attempting another biopsy. However, the patient wanted to discuss end-of-life issues, and Palliative Care was consulted to assist with symptom management, and to enter into discussions with the patient regarding her illness, the prognosis, and the benefits and burdens of the various treatment choices. Function/Cognitive Trajectory: The patient was functioning independently and was alert and oriented at home prior to the hospitalization. She was driving a car, and was the primary caregiver for her elderly mother. Review of Systems Constitutional: Reports weight loss Eyes: Denies irritation Ears, Nose, Mouth, and Throat: Denies abnormal hearing, Denies difficulty swallowing, Denies pain with swallowing Cardiovascular: Denies chest pain, Denies shortness of breath Respiratory: Denies chest congestion, Denies cough, Denies shortness of breath Gastrointestinal: Reports abdominal pain (Primarily right upper quadrant and right flank), Denies black, tarry stools, Denies incontinent of stools, Denies loose stools, Denies vomiting blood Genitourinary: Denies blood in urine Musculoskeletal: Reports back pain (Chronic) Skin/Breast: Denies rash Neurologic: Denies abnormal hearing, Denies convulsions, Denies seizure-like activity Psychiatric: Denies confusion, Denies panic attacks Endocrine: Denies flushing Hematologic/Lymphatic: Denies easy bruising Allergic/Immunologic: Denies hives PMFSH - History History Provided By: Patient, Medical Record - Medical History Medical History: Medical History (Last Updated 03/24/18 @ 14:57 by Emma Keene MD) PVD (peripheral vascular disease) (Chronic) COPD (chronic obstructive pulmonary disease) (Chronic) Back pain (Acute) Arthritis (Acute) Visual impairment (Acute) Heartburn (Acute) Dysrhythmia, cardiac (Acute) Admission for biliary drainage tube placement Admission for biliary drainage tube placement - Surgical History Surgical History: Surgical History (Last Reviewed 03/24/18 @ 10:24 by Sisi Norrsi) History of ERCP - Tobacco History Second Hand Smoke Exposure: No Tobacco Use In Past 30 Days: No Smoking Status: Former smoker Tobacco Type: Cigarettes Years Smoked: 35 Smoking End Date: September 2017 - Alcohol History How Often Do You Have a Drink Containing Alcohol: Monthly or less - Substance Use History Substance History: No History of Abuse - Travel History Recent Travel in the [place] Within the Last 8 Weeks: No Recent Travel Out of the Country Within the Last 8 Weeks: No - Immunization History Tetanus Immunization: Unsure Hx Influenza Vaccine This Season: No Medications and Allergies Active Medications: Active Medications Acetaminophen (Tylenol) 650 mg PO Q6HR PRN PRN Reason: PAIN SCALE 1 TO 2 Al Hydroxide/Mg Hydroxide (Milk Of Magnesia Liq) 30 ml PO Q12H PRN PRN Reason: Mild Constipation Albuterol (Ventolin Hfa Inh) 2 puff INH Q6H PRN PRN Reason: SHORTNESS OF BREATH Alprazolam (Xanax) 0.5 mg PO BID [facility] Last Admin: 03/24/18 08:47 Dose: Not Given Aspirin (Aspirin Chew) 81 mg PO DAILY [facility] Last Admin: 03/24/18 08:47 Dose: Not Given Atorvastatin Calcium (Lipitor) 40 mg PO HS [facility] Last Admin: 03/23/18 21:06 Dose: 40 mg Bisacodyl (Dulcolax Supp) 10 mg RECTAL DAILY PRN PRN Reason: SEVERE CONSITIPATION Bupropion HCl (Wellbutrin Sr) 150 mg PO BID [facility] Last Admin: 03/24/18 08:47 Dose: Not Given Chlorhexidine Gluconate (Chlorhexidine 2% Cloth) 3 pack TOPICAL [employer]URE SPECIALIST [facility] Stop: 03/27/18 05:17 Ezetimibe (Zetia) 10 mg PO DAILY [facility] Last Admin: 03/24/18 08:48 Dose: Not Given Enoxaparin Sodium (Lovenox Inj) 40 mg SQ Q24H [facility] Last Admin: 03/23/18 19:16 Dose: Not Given Fentanyl (Duragesic 25 Mcg Patch.72hr) 1 patch T-DERMAL Q3D [facility] Last Admin: 03/23/18 17:17 Dose: 1 patch Hydromorphone HCl (Dilaudid Pf Inj) 0.5 mg IV.PUSH Q3H PRN PRN Reason: PAIN 3-5;IF UNABLE TO TAKE PO Last Admin: 03/24/18 13:33 Dose: 0.5 mg Hydromorphone HCl (Dilaudid Pf Inj) 1 mg IV.PUSH Q3H PRN PRN Reason: PAIN 6-10; IF UNABLE TO TAKE P Last Admin: 03/24/18 11:21 Dose: 1 mg Hydromorphone HCl (Dilaudid Pf Inj) 1 mg IV.PUSH Q30M PRN PRN Reason: PAIN 6-10 Last Admin: 03/24/18 12:12 Dose: 1 mg Lactated Ringer's (Lr 1000 Ml Inj) 1,000 mls @ 30 mls/hr IV.SIG .Q24H [facility] Stop: 03/27/18 05:17 Last Admin: 03/24/18 06:40 Dose: Not Given Sodium Chloride (Ns Inj) 500 mls @ 30 mls/hr IV.SIG .Q10H [facility] Stop: 03/27/18 05:17 Labetalol HCl (Trandate Inj) 5 mg IV.PUSH Q30M PRN PRN Reason: SBP > 160 Lactulose (Lactulose Liq) 30 ml PO DAILY PRN PRN Reason: SEVERE CONSITIPATION Levofloxacin (Levaquin) 500 mg PO Q24H [facility] Last Admin: 03/24/18 13:34 Dose: 500 mg Lisinopril (Prinivil) 10 mg PO DAILY [facility] Last Admin: 03/24/18 08:47 Dose: Not Given Metoprolol Tartrate (Lopressor) 25 mg PO BID [facility] Last Admin: 03/24/18 08:47 Dose: Not Given Naloxone HCl (Narcan Inj) 0.4 mg IV.PUSH UNSCH PRN PRN Reason: SEE LABEL COMMENTS Ondansetron HCl (Zofran Inj) 4 mg IV.PUSH Q6H PRN PRN Reason: NAUSEA OR VOMITING Oxycodone HCl (Roxicodone) 5 mg PO Q4H PRN PRN Reason: PAIN SCALE 3 TO 5 Oxycodone HCl (Roxicodone) 10 mg PO Q4H PRN PRN Reason: PAIN SCALE 6 TO 10 Patch Removal (Remove Old Patch) 1 each T-DERMAL Q3D [facility] Pt Own Med Azelastine Opth Drops 0 each EACH EYE BID [facility] Povidone Iodine (Betadine 5% Antisepsis Kit) 1 applicatio EACH NARE AGRICULTURE SPECIALIST [facility] Stop: 03/27/18 05:17 Pramipexole Dihydrochloride (Mirapex) 0.5 mg PO HS [facility] Last Admin: 03/23/18 21:07 Dose: 0.5 mg Senna/Docusate Sodium (Kaylynn-Colace) 1 tab PO BID [facility] Last Admin: 03/24/18 08:47 Dose: Not Given Sennosides (Senokot) 17.2 mg PO Q12H PRN PRN Reason: Moderate Constipation Temazepam (Restoril) 15 mg PO HS PRN PRN Reason: INSOMNIA Allergies Allergy/AdvReac Type Severity Reaction Status Date / Time zolpidem Allergy Intermediate Hallucinati Verified 03/22/18 13:23 ons Home Medications Medication Instructions Recorded Confirmed Type alprazolam 0.5 mg PO BID 03/15/18 03/22/18 History fluorometholone acetate 1 drp OPHTHALMIC (EYE) TID 03/15/18 03/22/18 History albuterol sulfate [Ventolin HFA] 2 puff INHALATION Q6H PRN 03/18/18 03/22/18 History alendronate 70 mg PO QWEEK 03/18/18 03/22/18 History aspirin 81 mg PO DAILY 03/18/18 03/22/18 History atorvastatin 40 mg PO HS 03/18/18 03/22/18 History azelastine 1 drp OPHTHALMIC (EYE) BID 03/18/18 03/22/18 History bupropion HCl 150 mg PO BID 03/18/18 03/22/18 History calcium carbonate-vitamin D3 1 tab PO BID 03/18/18 03/22/18 History [Caltrate with Vitamin D3] cholecalciferol (vitamin D3) 5,000 unit PO DAILY 03/18/18 03/22/18 History [Vitamin D3] clopidogrel [Plavix] 75 mg PO DAILY 03/18/18 03/22/18 History fluticasone [Flovent HFA] 2 puff INHALATION BID 03/18/18 03/22/18 History tretinoin 1 applic TOPICAL QPM 03/18/18 03/22/18 History lisinopril 20 mg PO DAILY 03/20/18 03/22/18 History metoprolol tartrate 25 mg PO BID 03/20/18 03/22/18 History pramipexole 4 tab PO HS 03/20/18 03/22/18 History Advance Directives Living Will: Yes Healthcare Surrogate: Yes Health Care Surrogate Name and Number: Her sister Sandi Eargle Power of Chick Room Supervisor: Yes Today's verbally stated goals: Patient definitely requests DNR status. She believes she would not want to try chemotherapy if it was not curative, but she is willing to speak more with the oncologist about that. She does want to get information from hospice at this time. Ethical and Legal Issues: There are no ethical issues that would impact her care were decision-making at this time. The patient has capacity for decision-making. She has designated her sister Sandi as the HCS. Physical Exam Vital Signs: Vital Signs - 24 hr 03/23/18 15:14 03/23/18 20:00 03/24/18 00:00 Temperature 97.8 F 98.8 F 97.7 F Pulse Rate 74 82 58 L Respiratory Rate 18 18 17 Blood Pressure 130/61 132/63 110/51 L Pulse Oximetry 99 98 96 03/24/18 01:30 03/24/18 04:00 03/24/18 07:15 Temperature 97.4 F L 97.8 F Pulse Rate 62 63 Respiratory Rate 17 18 17 Blood Pressure 108/49 L 115/55 L Pulse Oximetry 98 95 03/24/18 11:05 03/24/18 11:20 03/24/18 11:35 Temperature 97.7 F Pulse Rate 73 76 82 Respiratory Rate 16 16 Blood Pressure 214/87 H 203/83 H 196/84 H Pulse Oximetry 98 96 96 03/24/18 11:50 03/24/18 12:20 Temperature Pulse Rate 78 71 Respiratory Rate 16 16 Blood Pressure 172/74 H 161/62 H Pulse Oximetry I&O: Intake & Output 03/22/18 03/23/18 03/24/18 03/25/18 06:59 06:59 06:59 06:59 Intake Total 480 / 480 600 / 600 Balance 480 / 480 600 / 600 Weight 61.2 kg Physical Exam: CONSTITUTIONAL/GENERAL: This is an adequately nourished patient, in no apparent distress. TUBES/LINES/DRAINS: Peripheral IV, SCDs, percutaneous biliary drain SKIN: No jaundice, rashes, or lesions. Ecchymoses on upper extremities. No wounds seen anteriorly. Skin temperature appropriate. Not diaphoretic. HEAD: Atraumatic. Normocephalic. EYES: Pupils equal and round and reactive. Extraocular motions intact. No scleral icterus. No injection or drainage. Fundi not examined. ENT: Hearing grossly normal. Nose without bleeding or purulent drainage. Throat without visible erythema, exudates, masses, or lesions. NECK: Trachea midline. Supple, nontender. No palpable thyroid enlargement or nodularity. CARDIOVASCULAR: Regular rate and rhythm without murmurs, gallops, or rubs. No JVD. Peripheral pulses symmetric. RESPIRATORY/CHEST: Symmetric, unlabored respirations. Clear to auscultation. Breath sounds equal bilaterally. No wheezes, rales, or rhonchi. GASTROINTESTINAL: Abdomen soft, nondistended. She has mild tenderness without guarding or rebound in the right mid and upper abdomen. No hepato-splenomegaly , or palpable masses. No guarding. Bowel sounds present. GENITOURINARY: Without palpable bladder distension. MUSCULOSKELETAL: Extremities without clubbing, cyanosis, or edema. No joint tenderness or effusion noted. No calf tenderness. No mottling or clubbing. LYMPHATICS: No palpable cervical or supraclavicular adenopathy. NEUROLOGICAL: Awake and alert. Motor and sensory grossly within normal limits. Follows commands. Cognitively sharp. Moves all extremities. PSYCHIATRIC: No obvious anxiety/depression. no apparent hallucinations or other psychotic thought process. Diagnostic Tests Laboratory: Laboratory Results - last 72 hr 03/22/18 03/22/18 03/23/18 21:26 21:26 05:19 WBC 11.2 H 9.2 RBC 2.53 L 2.25 L Hgb 8.7 L 8.1 L Hct 25.9 L 22.7 L MCV 102.1 H 100.9 H MCH 34.5 H 35.9 H MCHC 33.8 35.6 RDW 15.0 15.0 Plt Count 254 220 MPV 9.3 9.0 Neut % (Auto) 74.6 H 66.0 Lymph % (Auto) 17.5 22.2 [place] % (Auto) 7.1 10.1 H Eos % (Auto) 0.4 1.2 Baso % (Auto) 0.4 0.5 Neut # (Auto) 8.4 H 6.1 Lymph # (Auto) 2.0 2.0 [place] # (Auto) 0.8 0.9 Eos # (Auto) 0.0 0.1 Baso # (Auto) 0.0 0.0 WBC Differential . . Differential Comment Auto diff final Auto diff final Sodium 132 L Potassium 4.1 Chloride 98 Carbon Dioxide 22.4 Anion Gap 12 BUN 19 H Creatinine 0.85 Estimated GFR 66 L Random Glucose 111 H Calcium 8.6 Total Bilirubin 2.4 H AST 41 H ALT 101 H Alkaline Phosphatase 380 H Total Protein 7.0 D Albumin 3.4 Tumor Marker AFP Carcinoembryonic Ag CA 19-9 Antigen 03/23/18 03/23/18 05:19 05:19 WBC RBC Hgb Hct MCV MCH MCHC RDW Plt Count MPV Neut % (Auto) Lymph % (Auto) [place] % (Auto) Eos % (Auto) Baso % (Auto) Neut # (Auto) Lymph # (Auto) [place] # (Auto) Eos # (Auto) Baso # (Auto) WBC Differential Differential Comment Sodium 132 L Potassium 3.9 Chloride 98 Carbon Dioxide 21.3 Anion Gap 13 BUN 22 H Creatinine 1.02 H Estimated GFR 53 L Random Glucose 86 Calcium 8.6 Total Bilirubin 2.4 H AST 38 H ALT 88 H Alkaline Phosphatase 372 H Total Protein 6.8 Albumin 3.1 L Tumor Marker AFP 3.0 Carcinoembryonic Ag 2.8 CA 19-9 Antigen 11.3 Result Diagrams: 03/23/18 05:19 03/23/18 05:19 Imaging: Abdomen/Pelvis CT 03/22/18 00:00 CONCLUSION: 1. There is a small amount of free air in right upper quadrant, not significant changed. Chest CT 03/23/18 00:00 CONCLUSION: 1. Right lower lobe consolidation or atelectasis. 2. 0.7 cm nodule seen in the right lower lobe. This was present in 2013. 3. Mild emphysematous change. 4. External biliary stent in place. 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 Patient/Family Conference Present at Family Conference: Patient and me Family Conference Time: 55 Family Conference Location: Bedside Issues Discussed: * Palliative care role, purpose, approach * Hospice care role, purpose, approach * Additional medical, psychosocial, and spiritual history * Patients general health, functional status, and cognitive changes in the months leading up to the current hospitalization * Patient/family understanding of the current medical problems * Patient/family understanding of prognosis * Patients goals of care as best understood from advance directives and/or conversations and/or values * Current medical treatment options and benefits/burdens of those options * Likely scenarios comparing ongoing aggressive care with a transition to comfort measures only * Questions answered to the best of my ability * Palliative care contact information provided Assessment and Plan Pertinent Non-Medical Issues: Psychosocial: Originally from [place], has lived in [place] since 2003. / . No children. She is the primary caregiver for her 94-year-old mother. She worked for 18 years for [employer]. Spiritual: Latter Day background, unaffiliated with any mormonism or clergy in recent years. Legal: The patient has capacity for decision-making. She has designated her sister Sandi as the HCS. Ethical issues impacting care: None Important Contacts: Patient's cell phone: [phone] Prognosis: It appears that this patient has a cholangiocarcinoma, likely terminal. She is appropriate for hospice services. Code Status: No Code DNR Plan: * DO NOT RESUSCITATE, per request of patient 03/24/18 * DECISION-MAKING: The patient has capacity for decision-making. She has designated her sister Sandi as the HCS. * GOALS: The patient requests DNR status as of today. She is willing to speak with oncology regarding chemotherapy, but her initial feeling is that she would not want to receive chemo if it is not curative, as she does not want to risk side effects for whatever quality time she may have remaining. She wants to speak with hospice to get information about services. * SYMPTOMS: I discussed with Dr. Smith the patient's pain management; she had been started on a fentanyl patch and has been receiving IV Dilaudid, and we discussed possible conversion to oral Dilaudid since the patient's main goal is to get out of the hospital sometime in the next day or 2. * Hospice informational consult placed. * Corporate Physical Security Supervisor consult placed. * Palliative Care will continue to follow the patient during this hospitalization. Time Spent Total Floor Time (mins): 78 Face to Face Time (mins): 54 >50% Time in Counseling or Coordination of Care: Yes (d/w Dr. Smith and Shasha JUAREZ) Appreciation Thank you for the opportunity to participate in the care of Olena Herrmann.
--- NOTE | 2018-03-24 16:08 | IR ---
EXAM DATE: 03/24/2018 11:24 AM EDT AGE/SEX: 72 years / Female INDICATIONS: Patient with history of Common Bile Duct stricture and Cholangiocarcinoma in need of Ch olangiogram with possible biopsy and replacement of Biliary drain. CLINICAL DATA: This is the patient's subsequent encounter. Patient reports that signs and symptoms h ave been present for 1 month and indicates a pain score of 10/10. MEDICAL/SURGICAL HISTORY: . Intermittent claudication, COPD, HTN, IBS, Back and knee pain, Asth ma, Hyperlipidemia, Anxiety, Insomnia . Breast augmentation, Facelifts, Biliary biopsy and drain bulmaro cement. COMPARISON: No prior exams available for comparison. FLUORO TIME (min): 20 IMAGE SERIES: 5 SEDATION TIME (min): 45 CONTRAST (cc): 10 Omnipaque (iohexol) 350 MEDICATION(S): 7 mg midazolam (Versed) IV 350 mcg fentanyl (Sublimaze) IV 1.25 mg Vancomycin IV Enalapril DEVICE(S): 10 Maltese Flexima catheter RO Firm Biliary, 35 cm . . PROCEDURE: 1. Cholangiogram through existing catheter. 2. Biliary stent change. 3. Conscious sedation with continuous EKG and oximetry monitoring. The risks, benefits and alternatives to the procedure were explained and verbal and written consent w as obtained. The site was prepped in sterile fashion. Full sterile technique was used, including ca p, mask, sterile gloves and gown and a large sterile sheet. Hand hygiene and 2% chlorhexidine and/or betadine/alcohol prep was utilized per protocol for cutaneous antisepsis. The skin and subcutaneous tissues were infiltrated with local anesthetic solution. Under direct fluoroscopic guidance, an angled Glidewire was manipulated through the existing internal /external biliary drainage catheter and positioned into the small bowel. The catheter was removed int act. A 9 Maltese vascular sheath was introduced and used to perform pullback cholangiography. Contrast injection at and just proximal to the level of previous bile duct biopsy revealed some contrast stai bobo adjacent to the bile duct, presumably a site of luminal perforation associated with the previous biopsy. I was unable to direct my sheath in such a way as to avoid having the biopsy forceps and up sampling from this exact same location. I briefly attempt to manipulate from the hepatic hilar region up into the left-sided ducts the thought of potentially directing the catheter into this region to c hange positioning for possible repeat biopsy, however these attempts were unsuccessful and therefore repeat biopsy was not attempted. A new 10 Maltese internal/external biliary drainage catheter was then reinserted and positioned with the distal loop in the duodenum and sideholes extending into the righ t lobe bile ducts. Conscious sedation was performed with the prescribed dosages and duration as above in the presence of an independent trained radiology nurse to assist in the monitoring of the patient. EKG and oximetry remained stable throughout the procedure. The patient tolerated the procedure well and there were n o complications. The patient was sent to post anesthesia recovery in stable condition. CONCLUSION: 1. I was unable to accomplish repeat biopsy in this patient for reasons described above. 2. Cholangiography reveals no change in the appearance of hilar bile duct obstruction 3. The biliary drainage catheter was exchanged and upsized to 10 Maltese internal/external. Electronically signed by: Kamaljit Pa MD 03/24/2018 4:07 PM EDT
[2018-03-24] MEDS: Enoxaparin Inj 40 MG/0.4 ML Syringe SQ SCH (17:34)
[2018-03-25] MEDS ORDERED: Chlorhexidine Gluconate 2% 1 Pack (2 Cloths) TOPICAL ONE (03:48)
[2018-03-25] MEDS ORDERED: Sodium Chlor 0.9% Inj 500 ML IV.SIG SCH (04:00)
[2018-03-25] MEDS: HYDROmorphone PF Inj 2 MG/ML Vial IV.PUSH PRN ×4 (06:01→20:07)
[2018-03-25 06:35] LABS: Baso # (Auto) 0.1 th/mm3 (0.0-0.2); Baso % (Auto) 0.7 % (0.0-2.0); Eos # (Auto) 0.1 th/mm3 (0.0-0.4); Eos % (Auto) 1.1 % (0.0-4.0); Hemoglobin 8.9 gm/dL (11.6-15.3); Lymph # (Auto) 1.4 th/mm3 (1.0-4.8); Lymph % (Auto) 18.4 % (9.0-44.0); Mean Corpuscular HGB Conc 35.8 % (32.0-36.0); Mean Corpuscular Hemoglobin 35.7 pg (27.0-34.0); Mean Corpuscular Volume 99.8 fL (80.0-100.0); Mono # (Auto) 0.9 th/mm3 (0.0-0.9); Mono % (Auto) 12.1 % (0.0-8.0); Neut # (Auto) 5.1 th/mm3 (1.8-7.7); Neut % (Auto) 67.7 % (16.0-70.0); Platelet Count 248 th/mm3 (150-450); Red Blood Count 2.51 mil/mm3 (4.00-5.30); Red Cell Distribution Width 14.1 % (11.6-17.2); White Blood Count 7.5 th/mm3 (4.0-11.0)
[2018-03-25 07:01] LABS: Albumin 3.2 g/dL (3.4-5.0); Anion Gap 9 meq/L (5-15); Aspartate Aminotransferase 52 U/L (15-37); Blood Urea Nitrogen 24 mg/dL (7-18); Calcium 8.6 mg/dL (8.5-10.1); Carbon Dioxide 26.1 meq/L (21.0-32.0); Chloride 99 meq/L (98-107); Glomerular Filtration Rate 52 mL/min (>89); Glucose,Random 112 mg/dL (74-106); Sodium 134 meq/L (136-145)
[2018-03-25 07:07] LABS: Alanine Aminotransferase 80 U/L (10-53); Alkaline Phosphatase 650 U/L (45-117); Total Protein 7.1 g/dL (6.4-8.2)
[2018-03-25] MEDS: Senna/Docusate Sodium 8.6/50 MG Tablet PO SCH (08:05)
[2018-03-25] MEDS: Ezetimibe 10 MG Tablet PO SCH (08:05)
[2018-03-25] MEDS: ALPRAZolam 0.5 MG Tablet PO SCH (08:05)
[2018-03-25] MEDS: buPROPion 150 MG 12 HR Tablet PO SCH (08:06)
[2018-03-25] MEDS: Lisinopril 10 MG Tablet PO SCH (08:17)
[2018-03-25] MEDS: Metoprolol Tartrate 25 MG Tablet PO SCH (08:17)
--- NOTE | 2018-03-25 10:28 | GIPROC ---
[facility] [address]. [facility] [place] [place], [id number] ERCP PROCEDURE REPORT EXAM DATE: 03/25/2018 PATIENT NAME: Olena Herrmann MR #: [id number] BIRTHDATE: 1945 ATTENDING: Fitz Kiran MD ORDER #: [id number] DEPARTMENT TRAFFIC FREIGHT ROUTER: Tammy Oh Wilcox-Hassen, Alice, and Harriet Loza STATUS: inpatient INDICATIONS: The patient is a 72 yr old female here for an ERCP due to abdominal pain of suspected biliary origin, abnormal abdominal CT, and abnormal liver function test PROCEDURE PERFORMED: ERCP with stent placement ERCP with biopsy MEDICATIONS: None and Per Anesthesia. CONSENT: The patient understands the risks and benefits of the procedure and understands that these risks include, but are not limited to: sedation, allergic reaction, infection, perforation and/or bleeding. Alternative means of evaluation and treatment include, among others: physical exam, x-rays, and/or surgical intervention. The patient elects to proceed with this endoscopic procedure. medical equipment was checked for proper function. Hand hygiene and appropriate measures for infection prevention was taken. After the risks, benefits and alternatives of the procedure were thoroughly explained, Informed was verified, confirmed and timeout was successfully executed by the treatment team. With the patient in left semi-prone position, medications were administered intravenously.The Pentax [id number] was passed from the mouth into the esophagus and further advanced from the esophagus into the stomach. From stomach scope was directed to the second portion of the duodenum. Major papilla was aligned with the duodenoscope. The scope position was confirmed fluoroscopically. Rest of the findings/therapeutics are given below. The scope was then completely withdrawn from the patient and the procedure completed. The pulse, BP, and O2 saturation were monitored and documented by the physician and the nursing staff throughout the entire procedure. The patient was cared for as planned according to standard protocol. The patient was then discharged to recovery in stable condition and with appropriate post procedure care. A tight short stricture was noted at the bifurcation. PTC catheter removed by Dr Pa. R IHD normal, L IHD not opacified. Brushings of stricture obtained. 8.5 x 12 cm stent placed into the R IHD. ADVERSE EVENT: There were no complications. IMPRESSIONS: 1. Stricture at the bifurcation 2. PTC catheter removed by Dr Pa. R IHD normal, L IHD not opacified. Brushings of stricture obtained. 8.5 x 12 cm stent placed into the R IHD RECOMMENDATIONS: 1. Liver enzymes 2. Follow-up: GI clinic 1 week(s) REPEAT EXAM: Return 3 months ERCP Fitz Kiran MD eSigned: Fitz Kiran MD 03/25/2018 10:28 AM cc: Christiane Cespedes M.D. PATIENT NAME: Olena Herrmann MR#: [id number]
[2018-03-25] MEDS ORDERED: fentaNYL Citrate Inj 100 MCG/2 ML Ampul ONE (10:35)
[2018-03-25] MEDS: levoFLOXacin 500 MG Tablet PO SCH (12:37)
--- NOTE | 2018-03-25 12:59 | P.DS ---
<Martha Chen W - Last Filed: 03/25/18 12:53> Date of admission: 03/23/18 13:38 Primary care physician: Christiane Cespedes MD Attending physician on discharge: Kamran Smith Anticipated date of discharge: 03/25/18 Brief History from admission: A pleasant 72 yo female who is being admitted for intractable right upper quadrant abdominal pain. 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 She then had PTC with biliary drain and stent placement on 03/18/18 by IR which noted obstructing process at the hepatic hilum bile duct confluence consistent with Klatskin's tumor. Biopsies were taken AND RETURNED TODAY SHOWING GLANDULAR TISSUE WITH CRUSH ARTIFACT AND NO DEFINITIVE MALIGNANCY IDENTIFIED. Left lobe ducts were not clearly visualized and were presumed obstructed at the hilum. [place] [facility] [place] to the increased pain and nausea, with noted improvement in labs - TBili had decreased from 6.6 to 3.1, AST from 233 to 83, ALT from 357 to 207, and AlkPhos from 706 to 579. She had a CT Abd/pelvis in the ED on 03/20 which revealed interval development of pneumoperitoneum in the right upper abdominal quadrant with air tracking into the enrique hepatis and along the medial aspect of the right hepatic lobe, hepatic biliary drainage catheter enters the right ducts with the cope loop appropriately positioned in the second portion of the duodenum, persistent dilation of the left hepatic ducts, and bibasilar atelectatic changes, right greater than left. Patient returned today for internalization of the drain and underwent that procedure this afternoon with IR. Postoperatively however she began to develop severe right upper quadrant abdominal pain associated with nausea but no vomiting. Abdominal CT this afternoon showed a small amount of free air in the RUQ, not significantly changed. Patient has now received IV dilaudid and states the pain is much more controlled. She endorses poor appetite but denies any nausea or vomiting at home over the past 2 days. She described the RUQ abd pain as sharp, severe, intermittent, worsened by movement and deep breaths. DS: Diagnosis - Discharge Diagnosis (1) Mass of bile duct Status: Acute DS: Medications - Discharge Medications Prescriptions: fentanyl [Duragesic] 1 patch TRANSDERMAL Q3D #10 ea hydromorphone [Dilaudid] 4 mg PO Q4H PRN #18 tab PRN Reason: Pain lisinopril 10 mg PO DAILY #30 tab DS: Summary Hospital Course: Intractable right upper quadrant abdominal pain - A pleasant 72 yo female who is being admitted for intractable right upper quadrant abdominal pain. 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 - Biopsies were taken AND RETURNED TODAY SHOWING GLANDULAR TISSUE WITH CRUSH ARTIFACT AND NO DEFINITIVE MALIGNANCY IDENTIFIED. - Pt [place] [facility] [place] secondary to the increased pain and nausea, with noted improvement in labs - TBili had decreased from 6.6 to 3.1, AST from 233 to 83, ALT from 357 to 207, and AlkPhos from 706 to 579. - Pt had a CT Abd/pelvis in the ED on 03/20 which revealed interval development of pneumoperitoneum in the right upper abdominal quadrant with air tracking into the enrique hepatis and along the medial aspect of the right hepatic lobe, hepatic biliary drainage catheter enters the right ducts with the cope loop appropriately positioned in the second portion of the duodenum, persistent dilation of the left hepatic ducts, and bibasilar atelectatic changes, right greater than left. - Pt returned to [facility] 03/22 for internalization of the drain - Pt with marked pain & inpatient hospitalization was requested for pain mgmt and further w/u of likely Klatskin's tumor - pain improved with IV dilaudid - Duragesic Transdermal 25mcg (03/23) - appreciate input from Oncology, GI, and IR - AFP 3.0, CEA 2.8, CA 19-9 11.3 - Case d/w IR, Dr. Pa (03/23) - Pt underwent biliary stent exchange (03/24), but unable to obtain biopsy - (03/25) ERCP with stent placement and brushings of stricture were obtained with Dr. Kiran and Dr. Pa - Previous pathology was non-diagnostic - Pt met with Palliative Medicine (03/24). Case d/w Dr. Keene (03/24) - Pt likely does NOT want chemotherapy - Pt requesting discharge ADRI - code status changed to DNR - Pt requesting hospice consult - hospice consulted and plan to meet with patient at her home this coming 03/31/18 - Case d/w Oncology, Dr. Wagner - await input from Surgery, Dr. Herrera, patient has not yet meet with surgical team. Patient reports she is willing to meet with the surgical team but does not want surgery. - plan to DC patient after she meets with general surgery later today - lovenox for DVT prophylaixs - supportive care HTN - stable - metoprolol COPD - duonebs prn PVD - hold plavix - Time Spent with Patient Total time spent providing and/or coordinating discharge services: Greater than 30 minutes - Quality: VTE Deep Vein Thrombosis/Pulmonary Embolism Present on Admission: No Exam Vital signs: Vital Signs 03/24/18 13:20 03/24/18 13:50 03/24/18 16:00 Temperature 98.8 F 98.8 F 98.8 F Pulse Rate 70 70 64 Respiratory Rate 16 18 Blood Pressure 132/74 131/75 124/75 Pulse Oximetry 96 97 94 L 03/24/18 20:00 03/25/18 00:00 03/25/18 01:44 Temperature 98.8 F 98.2 F Pulse Rate 77 80 57 L Respiratory Rate 18 16 Blood Pressure 150/67 H 96/46 L 95/46 L Pulse Oximetry 98 94 L 03/25/18 04:00 03/25/18 08:00 03/25/18 10:31 Temperature 98.3 F 98.6 F 98.3 F Pulse Rate 59 L 61 79 Respiratory Rate 15 18 17 Blood Pressure 101/49 L 112/55 L 133/60 Pulse Oximetry 96 94 L 92 L 03/25/18 10:45 03/25/18 12:00 Temperature 97.9 F Pulse Rate 74 77 Respiratory Rate 15 18 Blood Pressure 124/58 L 131/61 Pulse Oximetry 98 97 Intake & Output 03/24/18 03/25/18 03/25/18 18:59 06:59 18:59 Output Total 725 / 725 Balance -725 / -725 Weight 60.4 kg Output: Wound Drainage 725 / 725 Right Lateral Abdomen 725 / 725 Other: Date of Last Bowel Movement 03/22/18 03/22/19 03/22/18 Narrative: GENERAL: This is a well-nourished, well-developed patient, in no apparent distress. CARDIOVASCULAR: Regular rate and rhythm RESPIRATORY: Clear to auscultation. Breath sounds equal bilaterally. GASTROINTESTINAL: Abdomen soft, non-tender, nondistended. Normal active bowel sounds MUSCULOSKELETAL: Extremities without clubbing, cyanosis, or edema. NEURO: Alert & Oriented x4 to person, place, time, situation. Moves all ext x4 Results Procedures completed during hospitalization: ERCP with stent placement 03/25/[address] Kiran Labs on day of discharge: Labs from last 24 hours 03/25/18 03/25/18 03/25/18 05:13 05:13 05:13 WBC 7.5 RBC 2.51 L Hgb 8.9 L Hct 25.0 L MCV 99.8 MCH 35.7 H MCHC 35.8 RDW 14.1 Plt Count 248 MPV 9.0 Neut % (Auto) 67.7 Lymph % (Auto) 18.4 [place] % (Auto) 12.1 H Eos % (Auto) 1.1 Baso % (Auto) 0.7 Neut # (Auto) 5.1 Lymph # (Auto) 1.4 [place]ard # (Auto) 0.9 Eos # (Auto) 0.1 Baso # (Auto) 0.1 WBC Differential . Differential Comment Auto diff final Sodium 134 L Potassium 4.0 Chloride 99 Carbon Dioxide 26.1 Anion Gap 9 BUN 24 H Creatinine 1.05 H Estimated GFR 52 L Random Glucose 112 H Calcium 8.6 Total Bilirubin 1.8 H AST 52 H ALT 80 H Alkaline Phosphatase 650 H Total Protein 7.1 Albumin 3.2 L Blood Type O Positive Antibody Screen Negative - Impressions ITS Impressions Abdomen/Pelvis CT 03/22/18 00:00 CONCLUSION: 1. There is a small amount of free air in right upper quadrant, not significant changed. Chest CT 03/23/18 00:00 CONCLUSION: 1. Right lower lobe consolidation or atelectasis. 2. 0.7 cm nodule seen in the right lower lobe. This was present in 2013. 3. Mild emphysematous change. 4. External biliary stent in place. 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 Biliary Drain Exchange 03/24/18 00:00 CONCLUSION: 1. I was unable to accomplish repeat biopsy in this patient for reasons described above. 2. Cholangiography reveals no change in the appearance of hilar bile duct obstruction 3. The biliary drainage catheter was exchanged and upsized to 10 Marshallese internal/external. <SarahKamran B - Last Filed: 03/27/18 16:12> Date of admission: 03/23/18 13:38 Primary care physician: Christiane Cespedes MD DS: Diagnosis - Discharge Diagnosis (1) Intractable right upper quadrant abdominal pain Status: Acute (2) Pneumoperitoneum Status: Acute (3) Mass of bile duct Status: Acute DS: Summary Hospital Course: Patient examined. Assessment and plan formulated with Martha Chen PA-C. I agree with the above. - Time Spent with Patient Total time spent providing and/or coordinating discharge services: Results - Impressions ITS Impressions Abdomen/Pelvis CT 03/22/18 00:00 CONCLUSION: 1. There is a small amount of free air in right upper quadrant, not significant changed. Chest CT 03/23/18 00:00 CONCLUSION: 1. Right lower lobe consolidation or atelectasis. 2. 0.7 cm nodule seen in the right lower lobe. This was present in 2013. 3. Mild emphysematous change. 4. External biliary stent in place. 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 Biliary Drain Exchange 03/24/18 00:00 CONCLUSION: 1. I was unable to accomplish repeat biopsy in this patient for reasons described above. 2. Cholangiography reveals no change in the appearance of hilar bile duct obstruction 3. The biliary drainage catheter was exchanged and upsized to 10 Marshallese internal/external. GI Procedure 03/25/18 00:00 CONCLUSION: ERCP as above. Discharge Plan - Discharge Order Discharge Orders: Discharge Order (Routine); Ordered 03/25/18 Ordered By: Kamran Smith - Physicians Team Primary Care Provider: Christiane Cespedes Attending Provider: Kamran Smith Other Providers: Grey Pringle MD ; Isis Wagner ; Emma Keene MD ; Byron Winn MD ; [facility] ; Jeremiah Herrera MD - Rxs /Orders / Referrals /Forms Prescriptions: New alprazolam [Xanax] 0.5 mg Tablet 0.5 mg PO BID RF: 0 fentanyl [Duragesic] 25 mcg/hr Patch 72 Hour 1 patch Transdermal Q3D Qty: 10 RF: 0 hydromorphone [Dilaudid] 4 mg Tablet 4 mg PO Q4H PRN (Reason: Pain) Qty: 18 RF: 0 lisinopril 10 mg Tablet 10 mg PO DAILY Qty: 30 RF: 0 Continue albuterol sulfate [Ventolin HFA] 90 mcg/actuation Hfa Aerosol Inhaler 2 puff INHALATION Q6H PRN (Reason: Shortness Of Breath Or Wheezing) aspirin 81 mg Tablet,Chewable 81 mg PO DAILY atorvastatin 40 mg Tablet 40 mg PO HS azelastine 0.05 % Drops 1 drp OPHTHALMIC (EYE) BID bupropion HCl 150 mg Tablet Extended Release 12 Hr 150 mg PO BID clopidogrel [Plavix] 75 mg Tablet 75 mg PO DAILY ezetimibe [Zetia] 10 mg Tablet 10 mg PO DAILY RF: 0 fluorometholone acetate 0.1 % Drops,Suspension 1 drp OPHTHALMIC (EYE) TID fluticasone [Flovent HFA] 110 mcg/actuation Hfa Aerosol Inhaler 2 puff INHALATION BID metoprolol tartrate 25 mg Tablet 25 mg PO BID pramipexole 0.125 mg Tablet 4 tab PO HS Discontinued alendronate 70 mg Tablet 70 mg PO QWEEK alprazolam 0.5 mg Tablet 0.5 mg PO BID calcium carbonate-vitamin D3 [Caltrate with Vitamin D3] 600 mg(1,500mg) -800 unit Tablet 1 tab PO BID cholecalciferol (vitamin D3) [Vitamin D3] 5,000 unit Tablet 5,000 unit PO DAILY hydrocodone-acetaminophen [[place]] 10-325 mg Tablet 1 tab PO Q4H PRN (Reason: Pain) Qty: 18 RF: 0 lisinopril 20 mg Tablet 20 mg PO DAILY tretinoin 0.05 % Gel 1 applic TOPICAL QPM Referrals: Fitz Kiran MD [Physician] - See Instructions Christiane Cespedes MD [Primary Care Provider] - See Instructions Isis Wagner [Physician] - See Instructions - Discharge Instructions Patient Printed Instructions: Lisinopril (By mouth), Alprazolam (By mouth), Fentanyl (Absorbed through the skin), Hydromorphone (By mouth), Cholecystitis ( ED), ERCP (Endoscopic Retrograde Cholangiopancreatography) (DC), COPD (Chronic Obstructive Pulmonary Disease) (DC) Additional Instructions: Follow up with Dr. Wagner in One week. Follow up with advanced GI Dr. Kiran in two weeks. prescriptions given at this time for duragesic patch, and dilaudid. Change dressing as needed when saturated. Keep dry and intact.
--- NOTE | 2018-03-25 13:03 | P.PNIM ---
Subjective Interval history: Patient reports feeling well after procedure earlier this AM reports pain currently well controlled patient continues to be concerned with the care of her mother, asking to be DC' d today patient reports she does not want chemotherapy and does not, "see the point of surgery." Physical Exam Vital signs: Vital Signs 03/24/18 13:20 03/24/18 13:50 03/24/18 16:00 Temperature 98.8 F 98.8 F 98.8 F Pulse Rate 70 70 64 Respiratory Rate 16 18 Blood Pressure 132/74 131/75 124/75 Pulse Oximetry 96 97 94 L 03/24/18 20:00 03/25/18 00:00 03/25/18 01:44 Temperature 98.8 F 98.2 F Pulse Rate 77 80 57 L Respiratory Rate 18 16 Blood Pressure 150/67 H 96/46 L 95/46 L Pulse Oximetry 98 94 L 03/25/18 04:00 03/25/18 08:00 03/25/18 10:31 Temperature 98.3 F 98.6 F 98.3 F Pulse Rate 59 L 61 79 Respiratory Rate 15 18 17 Blood Pressure 101/49 L 112/55 L 133/60 Pulse Oximetry 96 94 L 92 L 03/25/18 10:45 03/25/18 12:00 Temperature 97.9 F Pulse Rate 74 77 Respiratory Rate 15 18 Blood Pressure 124/58 L 131/61 Pulse Oximetry 98 97 Intake & Output 03/24/18 03/25/18 03/25/18 18:59 06:59 18:59 Output Total 725 / 725 Balance -725 / -725 Weight 60.4 kg Output: Wound Drainage 725 / 725 Right Lateral Abdomen 725 / 725 Other: Date of Last Bowel Movement 03/22/18 03/22/19 03/22/18 Narrative: GENERAL: This is a well-nourished, well-developed patient, in no apparent distress. CARDIOVASCULAR: Regular rate and rhythm RESPIRATORY: Clear to auscultation. Breath sounds equal bilaterally. GASTROINTESTINAL: Abdomen soft, non-tender, nondistended. Normal active bowel sounds MUSCULOSKELETAL: Extremities without clubbing, cyanosis, or edema. NEURO: Alert & Oriented x4 to person, place, time, situation. Moves all ext x4 Results - Labs CBC & Chem 7: 03/25/18 05:13 03/25/18 05:13 Laboratory Results - last 24 hr 03/25/18 03/25/18 03/25/18 05:13 05:13 05:13 WBC 7.5 RBC 2.51 L Hgb 8.9 L Hct 25.0 L MCV 99.8 MCH 35.7 H MCHC 35.8 RDW 14.1 Plt Count 248 MPV 9.0 Neut % (Auto) 67.7 Lymph % (Auto) 18.4 [place] % (Auto) 12.1 H Eos % (Auto) 1.1 Baso % (Auto) 0.7 Neut # (Auto) 5.1 Lymph # (Auto) 1.4 [place] # (Auto) 0.9 Eos # (Auto) 0.1 Baso # (Auto) 0.1 WBC Differential . Differential Comment Auto diff final Sodium 134 L Potassium 4.0 Chloride 99 Carbon Dioxide 26.1 Anion Gap 9 BUN 24 H Creatinine 1.05 H Estimated GFR 52 L Random Glucose 112 H Calcium 8.6 Total Bilirubin 1.8 H AST 52 H ALT 80 H Alkaline Phosphatase 650 H Total Protein 7.1 Albumin 3.2 L Blood Type O Positive Antibody Screen Negative - Imaging Impressions Biliary Drain Exchange 03/24/18 00:00 CONCLUSION: 1. I was unable to accomplish repeat biopsy in this patient for reasons described above. 2. Cholangiography reveals no change in the appearance of hilar bile duct obstruction 3. The biliary drainage catheter was exchanged and upsized to 10 Thai internal/external. - Procedures ERCP with stent placement 03/25/[address] Kiran Assessment and Plan - Assessment (1) Mass of bile duct Code(s): K83.8 - Other specified diseases of biliary tract Status: Acute Plan: Intractable right upper quadrant abdominal pain - A pleasant 72 yo female who is being admitted for intractable right upper quadrant abdominal pain. 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 - Biopsies were taken AND RETURNED TODAY SHOWING GLANDULAR TISSUE WITH CRUSH ARTIFACT AND NO DEFINITIVE MALIGNANCY IDENTIFIED. - [place] [facility] [place] secondary to the increased pain and nausea, with noted improvement in labs - TBili had decreased from 6.6 to 3.1, AST from 233 to 83, ALT from 357 to 207, and AlkPhos from 706 to 579. - Pt had a CT Abd/pelvis in the ED on 03/20 which revealed interval development of pneumoperitoneum in the right upper abdominal quadrant with air tracking into the enrique hepatis and along the medial aspect of the right hepatic lobe, hepatic biliary drainage catheter enters the right ducts with the cope loop appropriately positioned in the second portion of the duodenum, persistent dilation of the left hepatic ducts, and bibasilar atelectatic changes, right greater than left. - Pt returned to [facility] 03/22 for internalization of the drain - Pt with marked pain & inpatient hospitalization was requested for pain mgmt and further w/u of likely Klatskin's tumor - pain improved with IV dilaudid - Duragesic Transdermal 25mcg (03/23) - appreciate input from Oncology, GI, and IR - AFP 3.0, CEA 2.8, CA 19-9 11.3 - Case d/w IR, Dr. Pa (03/23) - Pt underwent biliary stent exchange (03/24), but unable to obtain biopsy - (03/25) ERCP with stent placement and brushings of stricture were obtained with Dr. Kiran and Dr. Pa - Previous pathology was non-diagnostic - Pt met with Palliative Medicine (03/24). Case d/w Dr. Keene (03/24) - Pt likely does NOT want chemotherapy - Pt requesting discharge ADRI - code status changed to DNR - Pt requesting hospice consult - hospice consulted and plan to meet with patient at her home this coming 03/31/18 - Case d/w Oncology, Dr. Wagner - await input from Surgery, Dr. Herrera, patient has not yet meet with surgical team. Patient reports she is willing to meet with the surgical team but does not want surgery. - plan to DC patient after she meets with general surgery later today - lovenox for DVT prophylaixs - supportive care HTN - stable - metoprolol COPD - duonebs prn PVD - hold plavix - Attending Attestation Patient examined. Assessment and plan formulated with Martha Chen PA-C. I agree with the above.
--- NOTE | 2018-03-25 13:04 | P.DCO ---
- Home Health Nursing Order: Medical education, Signs/symptoms of disease process, Medication education-adverse effect, Nursing assessment with vital signs - Certification I have seen patient Olena Herrmann on 03/25/18. My clinical findings support the need for the requested home health care services because: Limited mobility due to disease progression, Deconditioned with increased weakness, Medication compliance is questionable, Limited ability to care for self, Need for psychosocial assistance I certify that my clinical findings support that this patient is homebound because: Impaired cognitive ability/safety, Unsafe to leave home unassisted, Need for psychosocial assistance, Unable to use public transportation
--- NOTE | 2018-03-25 13:53 | FL ---
EXAM DATE: 03/25/2018 1:33 PM EDT AGE/SEX: 72 years / Female INDICATIONS: ERCP. CLINICAL DATA: This is the patient's initial encounter. Patient reports that signs and symptoms have been present for 1 day and indicates a pain score of Nonresponsive. MEDICAL/SURGICAL HISTORY: Non-responsive. Non-responsive. COMPARISON: [facility], BILIARY DRAIN W STENT [facility], 03/18/2018. . FINDINGS: An ERCP was performed by the ordering physician. The images demonstrate contrast opacifying the duod enum, common bile duct, and intrahepatic ducts. A percutaneous biliary drainage catheter is noted. CONCLUSION: ERCP as above. Electronically signed by: Mickey Aguilar MD 03/25/2018 1:52 PM EDT
--- NOTE | 2018-03-25 15:17 | P.PNPAL ---
Met with Ms. Herrmann to provide additional support. Mother at bedside. Brother later arrived as well. Ms. Herrmann anxious to go home, probable discharge today. During my visit Ms. Herrmann indicated she had a recent surgery and the tube appeared to be leaking. Yellow fluid seen on gown and blanket. supervisor accounting clerks and RN notified. Gently reviewed Ms. Herrmann's desire to meet with hospice. Confirms she is meeting with them at home Friday 03/30. Gently discussed CODE STATUS. Confirms DNR. Community DNR order completed and placed on chart. Copy faxed to HIM to be scanned into EMR. Copy given to patient. Palliative care will remain available as needed throughout hospitalization.
[2018-03-25] MEDS: Enoxaparin Inj 40 MG/0.4 ML Syringe SQ SCH (18:38)
--- NOTE | 2018-03-25 19:59 | MB ---
cc: Jeremiah Herrera MD DATE: 03/25/2018 PHYSICIANS REQUESTING CONSULTATION: Isis Wagner MD and Byron Winn MD, for healthcare requested to see the patient for surgical oncology. 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 The patient was initially diagnosed with an obstructive biliary pattern. She attempted to undergo ERCP. This is unsuccessful and therefore, a PTC was performed. Initial biopsies did return inconclusive for malignancy. The patient eventually underwent internalization of her stent with a rendezvous-type procedure with internal drainage of her biliary catheter. Imaging studies, including CT scan of the chest and MRI, do not show any metastatic disease, but show a stricture in the common hepatic duct near the hilum. The patient currently has no pain and her only complaint is bile draining from her PTC site. She does state that she discussed her case with the other physicians, including medical oncology, and she has elected to undergo more of a palliative approach when it is confirmed that she has a malignancy. REVIEW OF SYSTEMS: A 12-point review of systems was conducted with the patient and is negative except for the pertinent positives mentioned above in the history of present illness. PAST MEDICAL HISTORY: Peripheral vascular disease, COPD, osteoarthritis, history of arrhythmia. PAST SURGICAL HISTORY: No major previous abdominal operations. HOME MEDICATIONS: 1. Albuterol. 2. Aspirin. 3. Atorvastatin. 4. Wellbutrin. 5. Plavix. 6. Lovenox. 7. Zetia. 8. Morphine. 9. Metoprolol. 10. Oxycodone. 11. Restoril. ALLERGIES: ZOLPIDEM. SOCIAL HISTORY: The patient does have a history of tobacco use formerly. She occasionally uses alcohol. Denies illicit drug use. Denies any substance abuse. FAMILY HISTORY: No family history of GI malignancy. Reviewed with the patient and the family in the room. PHYSICAL EXAMINATION: VITAL SIGNS: Temperature 97.9 degrees, heart rate 81, respiratory rate 18, blood pressure 107/55, O2 saturation 93%. GENERAL: The patient is a thin female in no acute distress. HEENT: Head is normocephalic, atraumatic. Pupils are round, reactive, accommodating to light. Sclerae are anicteric. NECK: Supple. No JVD, no lymphadenopathy. LUNGS: Breath sounds present bilaterally. Nonlabored breathing pattern. HEART: Regular rate and rhythm. No murmurs. ABDOMEN: Soft, mildly tender in the right upper quadrant without peritonitis or rebound tenderness. Some bile on a drainage bandage on the right upper quadrant. No surgical scars. No hernias. Normal bowel sounds. EXTREMITIES: No clubbing, cyanosis or edema. NEUROLOGIC: The patient is alert and oriented x3. Nonfocal peripheral exam. Cranial nerves 2-12 are grossly intact. Mood, judgment and insight are intact. LABORATORY VALUES: White blood cell count 7.5, hemoglobin 8.9, total bilirubin 1.8, AST 52, ALT 80, alkaline phosphatase 650. AFP is 3.0. CEA is 2.8. CA 19-9 is 11.3. IMAGING DATA: Multiple imaging modalities including CT scan and MRCP do show a Klatskin tumor with no metastatic disease. ASSESSMENT AND PLAN: The patient is a 72-year-old female with newly diagnosed common hepatic duct obstruction, possible Klatskin tumor and cholangiocarcinoma. I did review all of the patient's imaging and records and discussed these with the patient. I discussed the cholangiocarcinoma and the staging and treatment options as well with the patient and the family. I did discuss the role of surgery and we discussed possible exploration for staging and possible resection in her individual case. I discussed risks, benefits and alternatives to surgery, including chemotherapy and chemoradiation as well as possible clinical trials. I also discussed palliation extensively with the patient and the family to include hospice care as well as palliative maneuvers such as her internal stent, which she already received. All questions were answered to her satisfaction. A total of 45 minutes was spent with the patient in direct counseling and discussion with the patient. The patient has decided that if she has a confirmed biopsy of cholangiocarcinoma that she would like to decline any aggressive treatment including surgery and possibly even decline any chemotherapy and radiation and would like to have a more palliative approach to her treatment. I think this is reasonable as the patient does likely have a malignancy that is almost universally unresectable in the vast majority of cases and would likely be in her case as well if she were to undergo further exploration. I gave my office information and contact information to the patient and she will call if needed. We will plan no surgical intervention at this time and we will sign off. Thank you very much for the consultation and opportunity to take care of this patient. MD ALFONSO Nobles/billy , 06:05 PM , 06:18 PM
[2018-03-25 21:20] VITALS: BP 102/51; PULSE 90; RESP 16; TEMP 97.3; O2SAT 98
== END 2018-03-25 21:31 | disposition home health service (06) ==
LOC: HROP 12:27 → HRIP 12:29 → N06 17:51
PROVIDERS: ADMIT Hospitalist; ATTEND Hospitalist

== ENCOUNTER 2018-03-27 11:51 | Inpatient (IN) ==
[2018-03-27] MEDS ORDERED: HYDROmorphone PF Inj 0.5 MG/0.5 ML Syringe IV.PUSH STA (13:18)
[2018-03-27] MEDS ORDERED: HYDROmorphone PF Inj 2 MG/ML Vial IV.PUSH ONE (13:26)
[2018-03-27 13:56] LABS: Baso # (Auto) 0.1 th/mm3 (0.0-0.2); Baso % (Auto) 0.8 % (0.0-2.0); Eos # (Auto) 0.1 th/mm3 (0.0-0.4); Eos % (Auto) 0.7 % (0.0-4.0); Hematocrit 26.7 % (35.0-46.0); Hemoglobin 9.3 gm/dL (11.6-15.3); Lymph # (Auto) 1.4 th/mm3 (1.0-4.8); Lymph % (Auto) 18.4 % (9.0-44.0); Mean Corpuscular HGB Conc 34.8 % (32.0-36.0); Mean Corpuscular Hemoglobin 34.9 pg (27.0-34.0); Mean Corpuscular Volume 100.5 fL (80.0-100.0); Mean Platelet Volume 8.8 fL (7.0-11.0); Mono # (Auto) 0.6 th/mm3 (0.0-0.9); Mono % (Auto) 8.1 % (0.0-8.0); Neut # (Auto) 5.5 th/mm3 (1.8-7.7); Platelet Count 314 th/mm3 (150-450); Red Blood Count 2.65 mil/mm3 (4.00-5.30); Red Cell Distribution Width 14.1 % (11.6-17.2); White Blood Count 7.6 th/mm3 (4.0-11.0)
[2018-03-27 14:12] LABS: Alanine Aminotransferase 57 U/L (10-53); Albumin 3.4 g/dL (3.4-5.0); Anion Gap 15 meq/L (5-15); Aspartate Aminotransferase 31 U/L (15-37); Blood Urea Nitrogen 29 mg/dL (7-18); Calcium 9.1 mg/dL (8.5-10.1); Carbon Dioxide 20.8 meq/L (21.0-32.0); Chloride 98 meq/L (98-107); Glomerular Filtration Rate 37 mL/min (>89); Glucose,Random 104 mg/dL (74-106); Potassium 3.7 meq/L (3.5-5.1); Sodium 134 meq/L (136-145)
[2018-03-27 14:15] LABS: Alkaline Phosphatase 450 U/L (45-117); Total Protein 7.6 g/dL (6.4-8.2)
--- NOTE | 2018-03-27 15:18 | ED ---
HPI General Chief complaint: Nausea/Vomiting/Diarrhea Stated complaint: Medical Time Seen by Provider: 03/27/18 13:01 Source: patient Mode of arrival: ambulatory Limitations: no limitations History of Present Illness HPI narrative: Patient is a 72-year-old female with possible cholangiocarcinoma , who comes in complaining of abdominal pain, nausea, vomiting as well as drainage of bile from her previous drain site. She was discharged Wednesday after having the drain removed, and says that she has not stopped leaking bile. She says she is also been experiencing a lot of pain and nausea with vomiting. She says that she has Dilaudid at home, but it made her hallucinate. She denies fever chills. She says she is having trouble keeping anything down. Severity is mild to moderate. Related Data Home Medications Medication Instructions Recorded Confirmed fluorometholone acetate 1 drp OPHTHALMIC (EYE) TID 03/15/18 03/27/18 albuterol sulfate [Ventolin HFA] 2 puff INHALATION Q6H PRN 03/18/18 03/27/18 aspirin 81 mg PO DAILY 03/18/18 03/27/18 atorvastatin 40 mg PO HS 03/18/18 03/27/18 azelastine 1 drp OPHTHALMIC (EYE) BID 03/18/18 03/27/18 bupropion HCl 150 mg PO BID 03/18/18 03/27/18 clopidogrel [Plavix] 75 mg PO DAILY 03/18/18 03/27/18 fluticasone [Flovent HFA] 2 puff INHALATION BID 03/18/18 03/27/18 metoprolol tartrate 25 mg PO BID 03/20/18 03/27/18 pramipexole 4 tab PO HS 03/20/18 03/27/18 Previous Rx's Medication Instructions Recorded ezetimibe [Zetia] 10 mg PO DAILY tab 03/16/18 alprazolam [Xanax] 0.5 mg PO BID tab 03/25/18 fentanyl [Duragesic] 1 patch TRANSDERMAL Q3D #10 ea 03/25/18 hydromorphone [Dilaudid] 4 mg PO Q4H PRN #18 tab 03/25/18 lisinopril 10 mg PO DAILY #30 tab 03/25/18 Allergies Allergy/AdvReac Type Severity Reaction Status Date / Time zolpidem Allergy Intermediate Hallucinati Verified 03/22/18 13:23 ons Review of Systems ROS: all other systems reviewed are negative Constitutional Denies chills and Denies fever(s) ENT Denies dizziness Cardiovascular Denies chest pain and Denies dyspnea Respiratory Denies cough Gastrointestinal Reports abdominal pain, Reports nausea and Reports vomiting Genitourinary Denies dysuria Musculoskeletal Denies myalgias and Denies arthralgias Integumentary/Breasts Denies lesions Neurologic Denies frequent falls and Denies focal weakness [facility] History Medical History PVD (peripheral vascular disease) (Chronic) COPD (chronic obstructive pulmonary disease) (Chronic) Back pain (Acute) Arthritis (Acute) Visual impairment (Acute) Heartburn (Acute) Dysrhythmia, cardiac (Acute) Admission for biliary drainage tube placement (Acute) Admission for biliary drainage tube placement (Acute) Surgical History Surgical History History of ERCP (Acute) Social History Social History Substance History: Unable to Obtain Second Hand Smoke Exposure: No Smoking Status: Unknown if ever smoked Tobacco Type: Cigarettes Years Smoked: 35 Smoking End Date: September 2017 How Often Do You Have a Drink Containing Alcohol: Unable to Obtain Recent Travel in [facility] within the Last 8 Weeks: No Recent Out of Country Travel within the Last 8 Weeks: No Immunization History Tetanus Immunization: Unable to Assess Exam Narrative Exam Narrative: GENERAL: Awake and alert, no acute distress. SKIN: Focused skin assessment warm/dry. Wound to the right upper quadrant, draining yellow bile. HEAD: Atraumatic. Normocephalic. EYES: Pupils equal and round. No scleral icterus. ENT: Mucous membranes pink and moist. NECK: Trachea midline. No JVD. CARDIOVASCULAR: Regular rate and rhythm. No murmur appreciated. RESPIRATORY: No accessory muscle use. Clear to auscultation. Breath sounds equal bilaterally. GASTROINTESTINAL: Abdomen soft, nondistended. Tender to palpation of the right upper quadrant. No rebound or guarding. MUSCULOSKELETAL: No obvious deformities. No clubbing. No cyanosis. No edema. NEUROLOGICAL: Awake and alert. No obvious cranial nerve deficits. Motor grossly within normal limits. Normal speech. PSYCHIATRIC: Appropriate mood and affect; insight and judgment normal. Course Initial Documented Vital Signs Temperature 97.7 F 03/27/18 11:56 Pulse Rate 80 03/27/18 11:56 Respiratory Rate 20 03/27/18 11:56 Blood Pressure 125/60 03/27/18 11:56 Pulse Oximetry 98 03/27/18 11:56 Last Documented Vital Signs Temperature 97.7 F 03/27/18 11:56 Pulse Rate 80 03/27/18 11:56 Respiratory Rate 20 03/27/18 11:56 Blood Pressure 125/60 03/27/18 11:56 Pulse Oximetry 98 03/27/18 11:56 Medical Decision Making MDM Narrative Medical decision making narrative: Patient is a 72-year-old female who comes in complaining of drainage of bile from her drain wound as well as pain and nausea and vomiting. Exam shows a large leakage of bile. IV established, labs sent. Labs show no acute abnormalities. I spoke with Dr. Herrera of general surgery who suggests wound care and an ostomy bag to catch the draining fluid. Patient given fluids, Zofran, Dilaudid. She will be admitted for further management. Medical Screen Exam Complete: Yes Emergency Medical Condition: Yes Differential Diagnosis Differential Diagnosis: Chronic pain versus biliary obstruction versus wound management Medical Records Medical records reviewed: Yes I reviewed the patient's medical records. Lab Data Lab results reviewed: Yes I reviewed the patient's lab results. Result diagrams: 03/27/18 13:36 03/27/18 13:36 Lab Results 03/27/18 03/27/18 Range/Units 13:36 13:36 WBC 7.6 (4.0-11.0) th/mm3 RBC 2.65 L (4.00-5.30) mil/mm3 Hgb 9.3 L (11.6-15.3) gm/dL Hct 26.7 L (35.0-46.0) % MCV 100.5 H (80.0-100.0) fL MCH 34.9 H (27.0-34.0) pg MCHC 34.8 (32.0-36.0) % RDW 14.1 (11.6-17.2) % Plt Count 314 (150-450) th/mm3 MPV 8.8 (7.0-11.0) fL Neut % (Auto) 72.0 H (16.0-70.0) % Lymph % (Auto) 18.4 (9.0-44.0) % [place] % (Auto) 8.1 H (0.0-8.0) % Eos % (Auto) 0.7 (0.0-4.0) % Baso % (Auto) 0.8 (0.0-2.0) % Neut # (Auto) 5.5 (1.8-7.7) th/mm3 Lymph # (Auto) 1.4 (1.0-4.8) th/mm3 [place] # (Auto) 0.6 (0.0-0.9) th/mm3 Eos # (Auto) 0.1 (0.0-0.4) th/mm3 Baso # (Auto) 0.1 (0.0-0.2) th/mm3 WBC Differential . Differential Comment Auto diff final Sodium 134 L (136-145) meq/L Potassium 3.7 (3.5-5.1) meq/L Chloride 98 (98-107) meq/L Carbon Dioxide 20.8 L (21.0-32.0) meq/L Anion Gap 15 (5-15) meq/L BUN 29 H (7-18) mg/dL Creatinine 1.41 H (0.50-1.00) mg/dL Estimated GFR 37 L (>89) mL/min Random Glucose 104 (74-106) mg/dL Calcium 9.1 (8.5-10.1) mg/dL Total Bilirubin 1.3 H (0.2-1.0) mg/dL AST 31 (15-37) U/L ALT 57 H (10-53) U/L Alkaline Phosphatase 450 H (45-117) U/L Total Protein 7.6 (6.4-8.2) g/dL Albumin 3.4 (3.4-5.0) g/dL Discharge Plan Discharge Disposition Patient Disposition: 30 Still Patient Discharge Condition Condition: Stable Discharge Details Diagnosis: Abdominal pain, Vomiting Physicians Team ED Provider: Debbie Joyce Primary Care Provider: Christiane Cespedes Rxs /Orders / Referrals /Forms Prescriptions: No Action pramipexole 0.125 mg Tablet 4 tab PO HS RF: 0 metoprolol tartrate 25 mg Tablet 25 mg PO BID RF: 0 fluorometholone acetate 0.1 % Drops,Suspension 1 drp OPHTHALMIC (EYE) TID RF: 0 ezetimibe [Zetia] 10 mg Tablet 10 mg PO DAILY RF: 0 atorvastatin 40 mg Tablet 40 mg PO HS RF: 0 bupropion HCl 150 mg Tablet Extended Release 12 Hr 150 mg PO BID RF: 0 azelastine 0.05 % Drops 1 drp OPHTHALMIC (EYE) BID RF: 0 clopidogrel [Plavix] 75 mg Tablet 75 mg PO DAILY RF: 0 aspirin 81 mg Tablet,Chewable 81 mg PO DAILY RF: 0 albuterol sulfate [Ventolin HFA] 90 mcg/actuation Hfa Aerosol Inhaler 2 puff INHALATION Q6H PRN (Reason: Shortness Of Breath Or Wheezing) RF: 0 fluticasone [Flovent HFA] 110 mcg/actuation Hfa Aerosol Inhaler 2 puff INHALATION BID RF: 0 lisinopril 10 mg Tablet 10 mg PO DAILY Qty: 30 RF: 0 fentanyl [Duragesic] 25 mcg/hr Patch 72 Hour 1 patch Transdermal Q3D Qty: 10 RF: 0 hydromorphone [Dilaudid] 4 mg Tablet 4 mg PO Q4H PRN (Reason: Pain) Qty: 18 RF: 0 alprazolam [Xanax] 0.5 mg Tablet 0.5 mg PO BID RF: 0 Status ED Status: With Doctor
[2018-03-27] MEDS ORDERED: Acetaminophen 325 MG Tablet PO PRN (15:19)
--- NOTE | 2018-03-27 15:21 | P.HP ---
<Martah Chen W - Last Filed: 03/27/18 17:30> History of Present Illness Primary Care Physician: Christiane Cespedes MD Chief Complaint: leakage from external drain site, N/V History of Present Illness: A pleasant 72 yo female with past medical history which includes PVD, COPD, chronic back pain, arthritis. Patient was recently hospitalized from 03/23/18 to 03/25/18. At that time patient was admitted for intractable right upper quadrant abdominal pain. 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 She then had a sphincterotomy but bile duct still not able to be localized. 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 Biopsies were taken AND RETURNED TODAY SHOWING GLANDULAR TISSUE WITH CRUSH ARTIFACT AND NO DEFINITIVE MALIGNANCY IDENTIFIED. Pt returned to the ED at [facility] [place] on 03/20/18 secondary to the increased pain and nausea. Pt had a CT Abd/ pelvis in the ED on 03/20 which revealed interval development of pneumoperitoneum in the right upper abdominal quadrant with air tracking into the enrique hepatis and along the medial aspect of the right hepatic lobe, hepatic biliary drainage catheter enters the right ducts with the cope loop appropriately positioned in the second portion of the duodenum, persistent dilation of the left hepatic ducts, and bibasilar atelectatic changes, right greater than left. Patient returned to [facility] 03/23 for internalization of the drain. 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 Patient underwent biliary stent exchange (03/24), but unable to obtain biopsy. On 03/25/18 ERCP with stent placement and brushings of stricture were obtained with Dr. Kiran and Dr. Pa Patient met with Palliative Medicine (03/24). Case d/w Dr. Keene (03/24) - Pt does NOT want chemotherapy or radiation - code status changed to DNR - Pt also met with Dr. Herrera general surgery and does not want surgical intervention Patient presented to the ER today due copious leakage from previous biliary drain site and intractable N/V. Patient has been unable to keep down food or liquids and reports feeling generally miserable. Patient denies fevers or chills, chest pain or SOB. Past medical history: PVD (peripheral vascular disease) (Chronic) COPD (chronic obstructive pulmonary disease) (Chronic) Back pain (Acute) Arthritis (Acute) Past Surgical history: ERCP external biliary drain, 03/25/18 ERCP with stent placement and brushings of stricture were obtained with Dr. Kiran and Dr. 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 Occational ETOH use former tobacco use Family medical history: reviewed patient denies permanent FMH - Diagnosis (1) Intractable nausea and vomiting Review of Systems All other systems reviewed negative except as stated in HPI PMFSH - History History Provided By: Patient, Family Member - Medical History Medical History: Medical History (Last Reviewed 03/27/18 @ 15:21 by Debbie Joyce MD) PVD (peripheral vascular disease) (Chronic) COPD (chronic obstructive pulmonary disease) (Chronic) Back pain (Acute) Arthritis (Acute) Visual impairment (Acute) Heartburn (Acute) Dysrhythmia, cardiac (Acute) Admission for biliary drainage tube placement Admission for biliary drainage tube placement - Surgical History Surgical History: Surgical History (Last Reviewed 03/27/18 @ 15:21 by Debbie Joyce MD) History of ERCP - Tobacco History Second Hand Smoke Exposure: No Smoking Status: Unknown if ever smoked Tobacco Type: Cigarettes Years Smoked: 35 Smoking End Date: September 2017 - Alcohol History How Often Do You Have a Drink Containing Alcohol: Unable to Obtain - Substance Use History Substance History: Unable to Obtain - Travel History Recent Travel in the [place] Within the Last 8 Weeks: No Recent Travel Out of the Country Within the Last 8 Weeks: No - Immunization History Tetanus Immunization: Unable to Assess Medications and Allergies Allergies Allergy/AdvReac Type Severity Reaction Status Date / Time zolpidem Allergy Intermediate Hallucinati Verified 03/22/18 13:23 ons Home Medications Medication Instructions Recorded Confirmed Type fluorometholone acetate 1 drp OPHTHALMIC (EYE) TID 03/15/18 03/27/18 History albuterol sulfate [Ventolin HFA] 2 puff INHALATION Q6H PRN 03/18/18 03/27/18 History aspirin 81 mg PO DAILY 03/18/18 03/27/18 History atorvastatin 40 mg PO HS 03/18/18 03/27/18 History azelastine 1 drp OPHTHALMIC (EYE) BID 03/18/18 03/27/18 History bupropion HCl 150 mg PO BID 03/18/18 03/27/18 History clopidogrel [Plavix] 75 mg PO DAILY 03/18/18 03/27/18 History fluticasone [Flovent HFA] 2 puff INHALATION BID 03/18/18 03/27/18 History metoprolol tartrate 25 mg PO BID 03/20/18 03/27/18 History pramipexole 4 tab PO HS 03/20/18 03/27/18 History Exam Vital signs: Vital Signs 03/27/18 11:56 Temperature 97.7 F Pulse Rate 80 Respiratory Rate 20 Blood Pressure 125/60 Pulse Oximetry 98 Intake & Output 03/26/18 03/27/18 03/27/18 18:59 06:59 18:59 Weight 58.967 kg Narrative: GENERAL: This is a well-nourished, well-developed patient, in no apparent distress. CARDIOVASCULAR: Regular rate and rhythm RESPIRATORY: Clear to auscultation. Breath sounds equal bilaterally. GASTROINTESTINAL: Abdomen soft, tender RUQ, mild distended. Normal active bowel sounds MUSCULOSKELETAL: Extremities without clubbing, cyanosis, or edema. NEURO: Alert & Oriented x4 to person, place, time, situation. Moves all ext x4 Results - Labs CBC & Chem 7: 03/27/18 13:36 03/27/18 13:36 Caprini VTE Risk Assessment Caprini VTE Risk Assessment: Moderate/High Risk (score >= 2) Caprini Risk Assessment Model: Point Value = 1 Point Value = 2 Point Value = 3 Point Value = 5 Age 41-60 Minor surgery BMI > 25 kg/m2 Swollen legs Varicose veins or History of unexplained or recurrent spontaneous Oral contraceptives or hormone replacement Sepsis (< 1 month) Serious lung disease, including pneumonia (< 1 month) Abnormal pulmonary function Acute myocardial infarction Congestive heart failure (< 1 month) History of inflammatory bowel disease Medical patient at bed rest Age 61-74 Arthroscopic surgery Major open surgery (> 45 min) Laparoscopic surgery (> 45 min) Malignancy Confined to bed (> 72 hours) Immobilizing plaster cast Central venous access Age >= 75 History of VTE Family history of VTE Factor V Leiden Prothrombin [id number] Lupus anticoagulant Anticardiolipin antibodies Elevated serum homocysteine Heparin-induced thrombocytopenia Other congenital or acquired thrombophilia Stroke (< 1 month) Elective arthroplasty Hip, pelvis, or leg fracture Acute spinal cord injury (< 1 month) Prophylaxis Regimen: Total Risk Factor Score Risk Level Prophylaxis Regimen 0-1 Low Early ambulation 2 Moderate Order ONE of the following: *Sequential Compression Device (SCD) *Heparin 5000 units SQ BID 3-4 Higher Order ONE of the following medications: *Heparin 5000 units SQ TID *Enoxaparin/Lovenox 40 mg SQ daily (WT < 150 kg, CrCl > 30 mL/min) *Enoxaparin/Lovenox 30 mg SQ daily (WT < 150 kg, CrCl > 10-29 mL/min) *Enoxaparin/Lovenox 30 mg SQ BID (WT < 150 kg, CrCl > 30 mL/min) AND/OR *Sequential Compression Device (SCD) 5 or more Highest Order ONE of the following medications: *Heparin 5000 units SQ TID (Preferred with Epidurals) *Enoxaparin/Lovenox 40 mg SQ daily (WT < 150 kg, CrCl > 30 mL/min) *Enoxaparin/Lovenox 30 mg SQ daily (WT < 150 kg, CrCl > 10-29 mL/min) *Enoxaparin/Lovenox 30 mg SQ BID (WT < 150 kg, CrCl > 30 mL/min) AND *Sequential Compression Device (SCD) Assessment and Plan - Assessment (1) Intractable nausea and vomiting Code(s): R11.2 - Nausea with vomiting, unspecified Status: Acute Plan: Intractable right upper quadrant abdominal pain Intractable nausea or vomiting - A pleasant 72 yo female who is being admitted for intractable right upper quadrant abdominal pain. 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 - Biopsies were taken AND RETURNED SHOWING GLANDULAR TISSUE WITH CRUSH ARTIFACT AND NO DEFINITIVE MALIGNANCY IDENTIFIED. - Pt returned to the ED at [facility] [place] on 03/20/18 secondary to the increased pain and nausea, with noted improvement in labs - Pt had a CT Abd/pelvis in the ED on 03/20 which revealed interval development of pneumoperitoneum in the right upper abdominal quadrant with air tracking into the enrique hepatis and along the medial aspect of the right hepatic lobe, hepatic biliary drainage catheter enters the right ducts with the cope loop appropriately positioned in the second portion of the duodenum, persistent dilation of the left hepatic ducts, and bibasilar atelectatic changes, right greater than left. 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 Kiran and Dr. Pa - pathology pending - on admission total bilirubin 1.3, AST 31, ALT, 57, Alk phos 450 - Pt met with Palliative Medicine (03/24). Case d/w Dr. Keene (03/24) - Pt does NOT want chemotherapy or radiation - code status changed to DNR - Pt requesting hospice consult, was planning to meet with hospice outpatient this week - Pt also met with Dr. Herrera and does not want surgical intervention - consult hospice - Zofran - IVFs - Fentanyl patch 50 mcg Q72 hours, Dilaudid 2 mg PO with Dilaudid IV for breakthrough pain as needed - SCDs for DVT prophylaxis - supportive care Copious drainage from previous external biliary drain - WBC 7.6 - 03/25 ERCP with stent placement and brushings of stricture were obtained with Dr. Kiran and Dr. Pa - ostomy drainage bag over previous external biliary drainage site - Dr. Smith discussed case with Dr. Fonseca IR information systems professor - CT abd/pelvis to rule out biloma to further evaluate source of drainage HTN - stable - continue home metoprolol 25 mg PO BID and Lisinopril 10 mg PO daily COPD - Ventolin inh prn PVD - continue statin, aspirin and plavix DVT prophylaxis with SCDs <Kamran Smith - Last Filed: 03/29/18 10:32> History of Present Illness Primary Care Physician: Christiane Cespedes MD - Diagnosis (1) Intractable right upper quadrant abdominal pain (2) Intractable nausea and vomiting Inpatient Certification: I certify that the inpatient services were ordered in accordance with Medicare regulations governing the order. This includes certification that hospital inpatient services are reasonable and necessary and in the case of services not specified as inpatient-only under 42 CFR 419.22(n), that they are appropriately provided as inpatient services in accordance to with the 2-midnight benchmark under 43 CFR 412.3(e) PMF - Medical History Medical History: Medical History (Last Reviewed 03/27/18 @ 15:21 by Debbie Joyce MD) PVD (peripheral vascular disease) (Chronic) COPD (chronic obstructive pulmonary disease) (Chronic) Back pain (Acute) Arthritis (Acute) Visual impairment (Acute) Heartburn (Acute) Dysrhythmia, cardiac (Acute) Admission for biliary drainage tube placement Admission for biliary drainage tube placement - Surgical History Surgical History: Surgical History (Last Reviewed 03/27/18 @ 15:21 by Debbie Joyce MD) History of ERCP Medications and Allergies Active Medications: Active Medications Acetaminophen (Tylenol) 650 mg PO Q4H PRN PRN Reason: Temp > 100.4 Al Hydroxide/Mg Hydroxide (Milk Of Kelly Lisherly) 30 ml PO Q12H PRN PRN Reason: Mild Constipation Albuterol (Ventolin Hfa Inh) 2 puff INH Q6H PRN PRN Reason: SHORTNESS OF BREATH/WHEEZING Aspirin (Aspirin Chew) 81 mg PO DAILY [facility] Last Admin: 03/29/18 08:50 Dose: 81 mg Atorvastatin Calcium (Lipitor) 40 mg PO HS [facility] Last Admin: 03/28/18 21:16 Dose: 40 mg Bupropion HCl (Wellbutrin Sr) 150 mg PO BID [facility] Last Admin: 03/29/18 08:50 Dose: 150 mg Clopidogrel Bisulfate (Plavix) 75 mg PO DAILY [facility] Last Admin: 03/29/18 08:50 Dose: 75 mg Ezetimibe (Zetia) 10 mg PO DAILY [facility] Last Admin: 03/29/18 08:50 Dose: 10 mg Fentanyl (Duragesic 50 Mcg Patch.72hr) 1 patch T-DERMAL Q3D [facility] Last Admin: 03/27/18 16:59 Dose: 1 patch Lisinopril (Prinivil) 10 mg PO DAILY [facility] Last Admin: 03/29/18 08:50 Dose: 10 mg Metoprolol Tartrate (Lopressor) 25 mg PO BID [facility] Last Admin: 03/29/18 08:50 Dose: 25 mg Ondansetron HCl (Zofran Inj) 4 mg IV.PUSH Q6H PRN PRN Reason: NAUSEA OR VOMITING Last Admin: 03/28/18 04:15 Dose: 4 mg Oxycodone HCl (Roxicodone) 10 mg PO Q6H PRN PRN Reason: pain 3-10 Patch Removal (Remove Old Patch) 1 each T-DERMAL Q3D [facility] Pramipexole Dihydrochloride (Mirapex) 0.5 mg PO HS [facility] Last Admin: 03/28/18 21:18 Dose: 0.5 mg Promethazine HCl (Phenergan) 25 mg PO Q4H PRN PRN Reason: NAUSEA OR VOMITING Last Admin: 03/28/18 09:56 Dose: 25 mg Senna/Docusate Sodium (Kaylynn-Colace) 1 tab PO BID [facility] Last Admin: 03/29/18 08:50 Dose: 1 tab Exam Vital signs: Vital Signs 03/28/18 12:00 03/28/18 16:00 03/28/18 20:00 Temperature 98.2 F 97.4 F L 97.7 F Pulse Rate 58 L 65 67 Respiratory Rate 18 18 18 Blood Pressure 106/47 L 109/51 L 125/60 Pulse Oximetry 95 98 99 03/29/18 00:00 03/29/18 08:00 Temperature 98.1 F 98.4 F Pulse Rate 63 71 Respiratory Rate 19 18 Blood Pressure 112/56 L 131/61 Pulse Oximetry 96 98 Intake & Output 03/28/18 03/29/18 03/29/18 18:59 06:59 18:59 Intake Total 1100 / 1100 950 / 950 Output Total 325 / 325 250 / 250 Balance 775 / 775 700 / 700 Weight 61.9 kg Intake: Oral 1100 / 1100 950 / 950 Output: Wound Drainage 325 / 325 250 / 250 Right Upper Abdomen 325 / 325 250 / 250 Other: # Voids 6 1 Date of Last Bowel Movement 03/27/18 03/28/18 Results - Labs CBC & Chem 7: 03/28/18 05:56 03/28/18 05:56 Caprini VTE Risk Assessment Caprini Risk Assessment Model: Point Value = 1 Point Value = 2 Point Value = 3 Point Value = 5 Age 41-60 Minor surgery BMI > 25 kg/m2 Swollen legs Varicose veins or History of unexplained or recurrent spontaneous Oral contraceptives or hormone replacement Sepsis (< 1 month) Serious lung disease, including pneumonia (< 1 month) Abnormal pulmonary function Acute myocardial infarction Congestive heart failure (< 1 month) History of inflammatory bowel disease Medical patient at bed rest Age 61-74 Arthroscopic surgery Major open surgery (> 45 min) Laparoscopic surgery (> 45 min) Malignancy Confined to bed (> 72 hours) Immobilizing plaster cast Central venous access Age >= 75 History of VTE Family history of VTE Factor V Leiden Prothrombin [id number] Lupus anticoagulant Anticardiolipin antibodies Elevated serum homocysteine Heparin-induced thrombocytopenia Other congenital or acquired thrombophilia Stroke (< 1 month) Elective arthroplasty Hip, pelvis, or leg fracture Acute spinal cord injury (< 1 month) Prophylaxis Regimen: Total Risk Factor Score Risk Level Prophylaxis Regimen 0-1 Low Early ambulation 2 Moderate Order ONE of the following: *Sequential Compression Device (SCD) *Heparin 5000 units SQ BID 3-4 Higher Order ONE of the following medications: *Heparin 5000 units SQ TID *Enoxaparin/Lovenox 40 mg SQ daily (WT < 150 kg, CrCl > 30 mL/min) *Enoxaparin/Lovenox 30 mg SQ daily (WT < 150 kg, CrCl > 10-29 mL/min) *Enoxaparin/Lovenox 30 mg SQ BID (WT < 150 kg, CrCl > 30 mL/min) AND/OR *Sequential Compression Device (SCD) 5 or more Highest Order ONE of the following medications: *Heparin 5000 units SQ TID (Preferred with Epidurals) *Enoxaparin/Lovenox 40 mg SQ daily (WT < 150 kg, CrCl > 30 mL/min) *Enoxaparin/Lovenox 30 mg SQ daily (WT < 150 kg, CrCl > 10-29 mL/min) *Enoxaparin/Lovenox 30 mg SQ BID (WT < 150 kg, CrCl > 30 mL/min) AND *Sequential Compression Device (SCD) Assessment and Plan - Assessment (1) Intractable right upper quadrant abdominal pain Code(s): R10.11 - Right upper quadrant pain Status: Acute (2) Intractable nausea and vomiting Code(s): R11.2 - Nausea with vomiting, unspecified Status: Acute - Attending Attestation Patient examined. Assessment and plan formulated with Martha Chen PA-C. I agree with the above.
[2018-03-27] MEDS: Ezetimibe 10 MG Tablet PO SCH (16:19)
--- NOTE | 2018-03-27 20:07 | CT ---
EXAM DATE: 03/27/2018 8:00 PM EDT AGE/SEX: 72 years / Female INDICATIONS: Right upper quadrant pain. Post biliary drain placement. CLINICAL DATA: This is the patient's initial encounter. Patient reports that signs and symptoms have been present for 1 day and indicates a pain score of 8/10. MEDICAL/SURGICAL HISTORY: Cardiovascular disease. Chronic obstructive pulmonary disease. . Rich iary drain RADIATION DOSE: 12.04 CTDI (mGy) COMPARISON: [facility] [place], [place] ABDOMEN & PELVIS W CONTRAST, 03/22/2018. . TECHNIQUE: Multiple contiguous axial images were obtained through the abdomen. Images were obtained using multiple row detector helical technique. Using automated exposure control and adjustment of the mA and/or kV according to patient size, radiation dose was kept as low as reasonably achievable to o btain optimal diagnostic quality images. DICOM format image data is available electronically for rev iew and comparison. FINDINGS: Abdomen CT: The spleen, pancreas, kidneys, adrenals are unremarkable. The left adrenal gland's limbs are somewhat prominent may be due to hyperplasia or small adenomas. There are atherosclerotic calcifications invo lving the aorta and iliac arteries chronic in nature. There is no evidence for any appreciable pathol ogical adenopathy, free fluid, or bowel obstruction. Tiny pericardial effusion is seen probably of n o clinical significance. There are vascular calcifications in the left kidney. The adjacent is in pl jeffry with distal tip in the second portion of the duodenum. There is slight dilatation of the biliary ducts in the left hepatic lobe not significantly changed. Right lung base consolidation is seen. Pelvic CT: There is no evidence for mass, abscess formation, or any significant adenopathy within the pelvis. T here is moderate amount of stool in the colon. There are scattered diverticuli within the colon main ly the sigmoid colon without signs of diverticulitis for technique. CONCLUSION: Right lung base consolidation and slightly biliary ductal dilatation not significantly ch anged. Electronically signed by: Js Epps MD 03/27/2018 8:05 PM EDT
[2018-03-27] MEDS: buPROPion 150 MG 12 HR Tablet PO SCH (20:42)
[2018-03-27] MEDS: Metoprolol Tartrate 25 MG Tablet PO SCH (20:43)
[2018-03-27] MEDS: Senna/Docusate Sodium 8.6/50 MG Tablet PO SCH (20:43)
[2018-03-27] MEDS: HYDROmorphone PF Inj 2 MG/ML Vial IV.PUSH PRN (22:04)
[2018-03-28] MEDS: HYDROmorphone PF Inj 2 MG/ML Vial IV.PUSH PRN (05:30)
[2018-03-28 07:32] LABS: Baso % (Auto) 0.7 % (0.0-2.0); Eos # (Auto) 0.1 th/mm3 (0.0-0.4); Eos % (Auto) 1.6 % (0.0-4.0); Hematocrit 24.8 % (35.0-46.0); Hemoglobin 8.7 gm/dL (11.6-15.3); Lymph # (Auto) 1.8 th/mm3 (1.0-4.8); Lymph % (Auto) 27.4 % (9.0-44.0); Mean Corpuscular HGB Conc 35.2 % (32.0-36.0); Mean Corpuscular Hemoglobin 34.9 pg (27.0-34.0); Mean Corpuscular Volume 99.2 fL (80.0-100.0); Mean Platelet Volume 8.5 fL (7.0-11.0); Mono # (Auto) 0.7 th/mm3 (0.0-0.9); Mono % (Auto) 10.5 % (0.0-8.0); Neut % (Auto) 59.8 % (16.0-70.0); Platelet Count 317 th/mm3 (150-450); Red Cell Distribution Width 14.2 % (11.6-17.2); White Blood Count 6.6 th/mm3 (4.0-11.0)
[2018-03-28 07:43] LABS: Calcium 8.6 mg/dL (8.5-10.1); Carbon Dioxide 24.7 meq/L (21.0-32.0); Potassium 4.2 meq/L (3.5-5.1)
[2018-03-28] MEDS: buPROPion 150 MG 12 HR Tablet PO SCH ×2 (08:32→21:17)
[2018-03-28] MEDS: Ezetimibe 10 MG Tablet PO SCH (08:32)
[2018-03-28] MEDS: Metoprolol Tartrate 25 MG Tablet PO SCH ×2 (08:33→21:17)
[2018-03-28] MEDS: Lisinopril 10 MG Tablet PO SCH (08:33)
[2018-03-28] MEDS: Senna/Docusate Sodium 8.6/50 MG Tablet PO SCH ×2 (08:33→21:17)
--- NOTE | 2018-03-28 08:52 | P.PNIM ---
Subjective Interval history: Follow up intractable N/V Patient endorses continued nausea with dry heaving pain mild to moderate Physical Exam Vital signs: Vital Signs 03/27/18 11:56 03/27/18 11:59 03/27/18 17:02 Temperature 97.7 F 97.5 F L Pulse Rate 80 68 90 Respiratory Rate 20 18 17 Blood Pressure 125/60 117/78 105/52 L Pulse Oximetry 98 100 97 03/27/18 20:33 03/28/18 00:29 03/28/18 08:00 Temperature 98.0 F 97.5 F L 97.4 F L Pulse Rate 68 53 L 59 L Respiratory Rate 18 16 18 Blood Pressure 136/61 107/50 L 100/49 L Pulse Oximetry 97 94 L 94 L Intake & Output 03/27/18 03/28/18 03/28/18 18:59 06:59 18:59 Intake Total 1000 / 1000 Output Total 75 / 75 Balance -75 / -75 1000 / 1000 Weight 58.967 kg 58 kg Intake: IV 1000 / 1000 NS + KCl 20 mEq Inj 1,000 ML @ 1000 / 1000 84 mls/hr IV.CONT .[id number] [facility] Rx#:[id number] Output: Wound Drainage 75 / 75 Right Upper Abdomen 75 / 75 Other: # Voids 2 Date of Last Bowel Movement 03/27/18 03/27/18 03/27/18 Narrative: GENERAL: This is a well-nourished, well-developed patient, in no apparent distress. CARDIOVASCULAR: Regular rate and rhythm RESPIRATORY: Clear to auscultation. Breath sounds equal bilaterally. GASTROINTESTINAL: Abdomen soft, tender RUQ, mild distended. Normal active bowel sounds MUSCULOSKELETAL: Extremities without clubbing, cyanosis, or edema. NEURO: Alert & Oriented x4 to person, place, time, situation. Moves all ext x4 Results - Labs CBC & Chem 7: 03/28/18 05:56 03/28/18 05:56 Laboratory Results - last 24 hr 03/27/18 03/27/18 03/28/18 13:36 13:36 05:56 WBC 7.6 6.6 RBC 2.65 L 2.50 L Hgb 9.3 L 8.7 L Hct 26.7 L 24.8 L MCV 100.5 H 99.2 MCH 34.9 H 34.9 H MCHC 34.8 35.2 RDW 14.1 14.2 Plt Count 314 317 MPV 8.8 8.5 Neut % (Auto) 72.0 H 59.8 Lymph % (Auto) 18.4 27.4 Coal % (Auto) 8.1 H 10.5 H Eos % (Auto) 0.7 1.6 Baso % (Auto) 0.8 0.7 Neut # (Auto) 5.5 4.0 Lymph # (Auto) 1.4 1.8 Coal # (Auto) 0.6 0.7 Eos # (Auto) 0.1 0.1 Baso # (Auto) 0.1 0.0 WBC Differential . . Differential Comment Auto diff final Auto diff final Sodium 134 L Potassium 3.7 Chloride 98 Carbon Dioxide 20.8 L Anion Gap 15 BUN 29 H Creatinine 1.41 H Estimated GFR 37 L Random Glucose 104 Calcium 9.1 Total Bilirubin 1.3 H AST 31 ALT 57 H Alkaline Phosphatase 450 H Total Protein 7.6 Albumin 3.4 03/28/18 05:56 WBC RBC Hgb Hct MCV MCH MCHC RDW Plt Count MPV Neut % (Auto) Lymph % (Auto) Coal % (Auto) Eos % (Auto) Baso % (Auto) Neut # (Auto) Lymph # (Auto) Coal # (Auto) Eos # (Auto) Baso # (Auto) WBC Differential Differential Comment Sodium 135 L Potassium 4.2 Chloride 101 Carbon Dioxide 24.7 Anion Gap 9 BUN 25 H Creatinine 1.07 H Estimated GFR 51 L Random Glucose 94 Calcium 8.6 Total Bilirubin AST ALT Alkaline Phosphatase Total Protein Albumin - Imaging Impressions Abdomen/Pelvis CT 03/27/18 00:00 CONCLUSION: Right lung base consolidation and slightly biliary ductal dilatation not significantly changed. Assessment and Plan - Assessment (1) Intractable nausea and vomiting Code(s): R11.2 - Nausea with vomiting, unspecified Status: Acute Plan: Intractable right upper quadrant abdominal pain Intractable nausea or vomiting - A pleasant 72 yo female who is being admitted for intractable right upper quadrant abdominal pain. 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 - Biopsies were taken AND RETURNED SHOWING GLANDULAR TISSUE WITH CRUSH ARTIFACT AND NO DEFINITIVE MALIGNANCY IDENTIFIED. - Pt returned to the ED at [facility] on 03/20/18 secondary to the increased pain and nausea, with noted improvement in labs - Pt had a CT Abd/pelvis in the ED on 03/20 which revealed interval development of pneumoperitoneum in the right upper abdominal quadrant with air tracking into the enrique hepatis and along the medial aspect of the right hepatic lobe, hepatic biliary drainage catheter enters the right ducts with the cope loop appropriately positioned in the second portion of the duodenum, persistent dilation of the left hepatic ducts, and bibasilar atelectatic changes, right greater than left. 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 Kiran and Dr. Pa - pathology pending - on admission total bilirubin 1.3, AST 31, ALT, 57, Alk phos 450 - Pt met with Palliative Medicine (03/24). Case d/w Dr. Keene (03/24) - Pt does NOT want chemotherapy or radiation - code status changed to DNR - Pt requesting hospice consult, was planning to meet with hospice outpatient this week - Pt also met with Dr. Herrera and does not want surgical intervention - consult hospice - Zofran not releiving N/V will add PO Phenergan - IVFs - Fentanyl patch 50 mcg Q72 hours - Dilaudid 2 mg PO with Dilaudid IV for breakthrough pain as needed - patient reports hallucinations with Dilaudid - will DC - start oxycodone 10 mg as needed for breakthrough pain - SCDs for DVT prophylaxis - supportive care Copious drainage from previous external biliary drain - WBC 7.6 - 03/25 ERCP with stent placement and brushings of stricture were obtained with Dr. Kiran and Dr. Pa - ostomy drainage bag over previous external biliary drainage site - Dr. Smith discussed case with Dr. Fonseca IR precision farming coordinator - Abdomen/Pelvis CT 03/27/18 Right lung base consolidation and slightly biliary ductal dilatation not significantly changed. HTN - stable - continue home metoprolol 25 mg PO BID and Lisinopril 10 mg PO daily COPD - Ventolin inh prn PVD - continue statin, aspirin and plavix DVT prophylaxis with SCDs The exam, history, and the medical decision-making described in the above note were completed with the assistance of the mid-level provider. I reviewed and agree with the findings presented. I attest that I had a [id number] encounter with the patient on the same day, and personally performed and documented my assessment and findings in the medical record. updated pt/family. hospice evaluation today. pain and nausea meds adjusted. cont ostomy bag over biliary leaking.
--- NOTE | 2018-03-29 08:47 | P.DCO ---
- Home Health Nursing Order: Medical education, Signs/symptoms of disease process, Medication education-adverse effect, Wound care and dressing changes, Nursing assessment with vital signs Instructions: ostomy collection bag to right upper quadrant wound - Automotive Service Assistant Order: To evaluate: Support services Order: To provide: Long range planning - Certification I have seen patient Olena Herrmann on 03/29/18. My clinical findings support the need for the requested home health care services because: Medication compliance is questionable, Limited ability to care for self I certify that my clinical findings support that this patient is homebound because: Need for psychosocial assistance
[2018-03-29] MEDS: Ezetimibe 10 MG Tablet PO SCH (08:50)
[2018-03-29] MEDS: Metoprolol Tartrate 25 MG Tablet PO SCH (08:50)
[2018-03-29] MEDS: buPROPion 150 MG 12 HR Tablet PO SCH (08:50)
[2018-03-29] MEDS: Senna/Docusate Sodium 8.6/50 MG Tablet PO SCH (08:50)
[2018-03-29] MEDS: Lisinopril 10 MG Tablet PO SCH (08:50)
--- NOTE | 2018-03-29 08:53 | P.DS ---
Date of admission: 03/27/18 15:19 Primary care physician: Christiane Cespedes MD Attending physician on discharge: Saji Cantor Anticipated date of discharge: 03/29/18 Brief History from admission: A pleasant 72 yo female with past medical history which includes PVD, COPD, chronic back pain, arthritis. Patient was recently hospitalized from 03/23/18 to 03/25/18. At that time patient was admitted for intractable right upper quadrant abdominal pain. 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 She then had a sphincterotomy but bile duct still not able to be localized. 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 Biopsies were taken AND RETURNED TODAY SHOWING GLANDULAR TISSUE WITH CRUSH ARTIFACT AND NO DEFINITIVE MALIGNANCY IDENTIFIED. Pt returned to the ED at [facility] on 03/20/18 secondary to the increased pain and nausea. Pt had a CT Abd/ pelvis in the ED on 03/20 which revealed interval development of pneumoperitoneum in the right upper abdominal quadrant with air tracking into the enrique hepatis and along the medial aspect of the right hepatic lobe, hepatic biliary drainage catheter enters the right ducts with the cope loop appropriately positioned in the second portion of the duodenum, persistent dilation of the left hepatic ducts, and bibasilar atelectatic changes, right greater than left. Patient returned to [facility] 03/23 for internalization of the drain. 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 Patient underwent biliary stent exchange (03/24), but unable to obtain biopsy. On 03/25/18 ERCP with stent placement and brushings of stricture were obtained with Dr. Kiran and Dr. Pa Patient met with Palliative Medicine (03/24). Case d/w Dr. Keene (03/24) - Pt does NOT want chemotherapy or radiation - code status changed to DNR - Pt also met with Dr. Herrera general surgery and does not want surgical intervention Patient presented to the ER today due copious leakage from previous biliary drain site and intractable N/V. Patient has been unable to keep down food or liquids and reports feeling generally miserable. Patient denies fevers or chills, chest pain or SOB. Past medical history: PVD (peripheral vascular disease) (Chronic) COPD (chronic obstructive pulmonary disease) (Chronic) Back pain (Acute) Arthritis (Acute) Past Surgical history: ERCP external biliary drain, 03/25/18 ERCP with stent placement and brushings of stricture were obtained with Dr. Kiran and Dr. 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 Occational ETOH use former tobacco use Family medical history: reviewed patient denies permanent [employer] [facility] Patient update on day of discharge: Patient sitting up in bed A&O reports feeling much better today N/V resolved after Phenergan pain tolerable with fentanyl patch DS: Diagnosis - Discharge Diagnosis (1) Intractable right upper quadrant abdominal pain Status: Acute (2) Intractable nausea and vomiting Status: Acute DS: Medications - Discharge Medications Prescriptions: fentanyl [Duragesic] 1 patch TRANSDERMAL Q3D #2 ea hydrocodone-acetaminophen [[place]] 1 tab PO Q4H PRN 18 Days tab PRN Reason: Pain promethazine 25 mg PO Q6H PRN 20 Days tab PRN Reason: Nausea And Vomiting DS: Summary Hospital Course: Intractable right upper quadrant abdominal pain Intractable nausea or vomiting - A pleasant 72 yo female who is being admitted for intractable right upper quadrant abdominal pain. 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 - Biopsies were taken AND RETURNED SHOWING GLANDULAR TISSUE WITH CRUSH ARTIFACT AND NO DEFINITIVE MALIGNANCY IDENTIFIED. - Pt returned to the ED at [facility] on 03/20/18 secondary to the increased pain and nausea, with noted improvement in labs - Pt had a CT Abd/pelvis in the ED on 03/20 which revealed interval development of pneumoperitoneum in the right upper abdominal quadrant with air tracking into the enrique hepatis and along the medial aspect of the right hepatic lobe, hepatic biliary drainage catheter enters the right ducts with the cope loop appropriately positioned in the second portion of the duodenum, persistent dilation of the left hepatic ducts, and bibasilar atelectatic changes, right greater than left. 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 Kiran and Dr. Pa - pathology pending - on admission total bilirubin 1.3, AST 31, ALT, 57, Alk phos 450 - Pt met with Palliative Medicine (03/24). Case d/w Dr. Keene (03/24) - Pt does NOT want chemotherapy or radiation - code status changed to DNR - Pt requesting hospice consult, was planning to meet with hospice outpatient this week - Pt also met with Dr. Herrera and does not want surgical intervention - consult hospice placed for patient to meet with Hospice as an inpatient. Patient would like to be DC'd today and would rather meet with hospice in her home as an outpatient Wednesday. Appointment scheduled - Zofran not releiving N/V will add PO Phenergan - IVFs - Fentanyl patch 50 mcg Q72 hours - Dilaudid 2 mg PO with Dilaudid IV for breakthrough pain as needed - patient reports hallucinations with Dilaudid - will DC - start oxycodone 10 mg as needed for breakthrough pain - SCDs for DVT prophylaxis - supportive care Copious drainage from previous external biliary drain - WBC 7.6 - 03/25 ERCP with stent placement and brushings of stricture were obtained with Dr. Kiran and Dr. Pa - ostomy drainage bag over previous external biliary drainage site, [facility] nursing ordered to assist with patient teaching in care/changing ostomy bag as needed - Dr. Smith discussed case with Dr. Fonseca IR salesperson men's hats - Abdomen/Pelvis CT 03/27/18 Right lung base consolidation and slightly biliary ductal dilatation not significantly changed. HTN - stable - continue home metoprolol 25 mg PO BID and Lisinopril 10 mg PO daily COPD - Ventolin inh prn PVD - continue statin, aspirin and plavix DVT prophylaxis with SCDs - Time Spent with Patient Total time spent providing and/or coordinating discharge services: Greater than 30 minutes - Quality: VTE Deep Vein Thrombosis/Pulmonary Embolism Present on Admission: No Exam Vital signs: Vital Signs 03/28/18 12:00 03/28/18 16:00 03/28/18 20:00 Temperature 98.2 F 97.4 F L 97.7 F Pulse Rate 58 L 65 67 Respiratory Rate 18 18 18 Blood Pressure 106/47 L 109/51 L 125/60 Pulse Oximetry 95 98 99 03/29/18 00:00 Temperature 98.1 F Pulse Rate 63 Respiratory Rate 19 Blood Pressure 112/56 L Pulse Oximetry 96 Intake & Output 03/28/18 03/29/18 03/29/18 18:59 06:59 18:59 Intake Total 1100 / 1100 950 / 950 Output Total 325 / 325 250 / 250 Balance 775 / 775 700 / 700 Weight 61.9 kg Intake: Oral 1100 / 1100 950 / 950 Output: Wound Drainage 325 / 325 250 / 250 Right Upper Abdomen 325 / 325 250 / 250 Other: # Voids 6 1 Date of Last Bowel Movement 03/27/18 Narrative: GENERAL: This is a well-nourished, well-developed patient, in no apparent distress. CARDIOVASCULAR: Regular rate and rhythm RESPIRATORY: Clear to auscultation. Breath sounds equal bilaterally. GASTROINTESTINAL: Abdomen soft, mild tenderness RUQ, mild distended. Normal active bowel sounds MUSCULOSKELETAL: Extremities without clubbing, cyanosis, or edema. NEURO: Alert & Oriented x4 to person, place, time, situation. Moves all ext x4 Results Procedures completed during hospitalization: None - Impressions ITS Impressions Abdomen/Pelvis CT 03/27/18 00:00 CONCLUSION: Right lung base consolidation and slightly biliary ductal dilatation not significantly changed. Discharge Plan - Discharge Disposition Patient Disposition: W/Home Health Service - Discharge Condition Condition: Stable - Discharge Order Discharge Orders: Discharge Order (Routine); Ordered 03/29/18 Ordered By: Martha Chen - Discharge Details Anticipated Discharge Date: 03/29/18 - Physicians Team Primary Care Provider: Christiane Cespedes Attending Provider: Kamran Smith Other Providers: [facility]
[2018-03-29 09:04] VITALS: BP 131/61; PULSE 71; RESP 18; TEMP 98.4; O2SAT 98
== END 2018-03-29 11:00 | disposition home health service (06) ==
LOC: NEPC 11:51 → NEDA 15:19 → N07 16:49
PROVIDERS: ADMIT Hospitalist; ATTEND Hospitalist